=== PATIENT | female | born 1960 | race Caucasian/White ===

== ENCOUNTER 2018-09-05 10:41 | Emergency (ER) | payer BC, SELFPAY ==
[2018-09-05] VITALS (19 sets, daily range): BP systolic 96–129; BP diastolic 70–74; PULSE 72–91; RESP 11–20; TEMP 36.8; O2SAT 94–98
--- NOTE | 2018-09-05 11:08 | DI.CT_ITS ---
SYMPTOMS/DIAGNOSIS: LARGE LEFT TONSILLAR MASS, NONTENDER, FIRM CT OF THE NECK: Postcontrast exam was performed. Comparison is made with May,. There is a rounded mass in the left palatine tonsil, measuring roughly 3 cm in diameter. There is slight deviation of the airway toward the right. There are two adjacent lymph nodes, the larger showing necrosis, measuring 2 cm in diameter. A 1 cm node is seen inferior to the larger node. The parotid, submandibular and thyroid glands are unremarkable. Visualized portions of the lung apices appear clear. IMPRESSION: A 3 cm left tonsillar mass and adjacent enlarged lymph nodes with necrotic center.
[2018-09-05 11:31] LABS: Abs Immature Grans 0.01 k/cumm (0.0-0.09); Absolute Basophil Count 0.04 k/cumm (0.0-0.2); Absolute Lymphocyte Count 1.78 k/cumm (1.2-3.4); Absolute Monocyte Count 0.36 k/cumm (0.11-0.7); Absolute Neutrophil Count 3.95 k/cumm (1.2-6.7); Basophils % 0.6; Eosinophils % 6.1; HCT 42.1 % (36.0-46.0); HGB 13.8 g/dL (12.0-15.5); Immature Grans % 0.2; Lymphocytes % 27.2; Mean Corp. HGB Concentration 32.8 g/dL (32.0-36.0); Mean Corpuscular Hemoglobin 29.7 pg (27.0-33.0); Mean Corpuscular Volume 90.7 fL (80-95); Mean Platelet Volume 9.9 fL (8.0-11.0); Monocytes % 5.5; Neutrophils % 60.4; Platelet Count 244 x1000/uL (130-400); RBC 4.64 m/cumm (4.00-5.20); White Blood Cell Count 6.54 k/cumm (4.4-10.8)
--- NOTE | 2018-09-05 11:31 | ED.GENADUL_ITS ---
Discharge Plan Disposition Patient Disposition: OTHER Condition: Good Discharge Details Chief Complaint: FacialProb Clinical Impression: Asymmetry of tonsils Primary Care Provider: Josue Vela ED Provider: Jt Huang Home Meds and New Rx's Prescriptions: No Action methylphenidate HCl 10 MG tablet 10 mg PO TID PRNRF: 0 Discharge Instructions Instructions: Dysphagia (ED) Additional Instructions: Please drive directly to [facility] and go to the clinic of Dr. Keita and Dr. Collazo. You have discussed with us that you are familiar with this location. Do not stop, do not get food, go directly there. Discharge Data Discharge Date/Time-TO BE ENTERED AT DEPARTURE: 09/05/18 14:29 Medical Decision Making This is a 58-year-old female who presents with a large left mass in her left peritonsillar region. Patient states that it started either last night or this morning. She is uncertain. She has had no red flag symptoms of fever, chills, sore throat, or neck stiffness. The fact on exam she demonstrates no significant tenderness whatsoever. Minimal uvular deviation to the right. She is able to swallow and drink well without difficulty. No signs of airway compromise. The patient's symptoms are certainly atypical with no pain, fever, neck stiffness, tenderness, fever or chills. Because of the atypical component and concern for other causes on her differential aside for peritonsillar abscess including a blocked salivary duct with a sialolith, versus mass versus aneurysm. We will get a CT for further evaluation. CT scan results have returned and demonstrate evidence of a 3 cm tonsillar mass as well as an adjacent enlarged lymph node with a necrotic center that is roughly 2 cm in diameter. With no evidence of clear tonsillar abscess as the cause of the symptoms, the differential that now includes cancer or malignancy, we did contact ENT, Dr. Collazo. I discussed the case with him. He recommends immediate follow-up at his clinic today. On reassessment the patient is still demonstrating a clear airway, no signs of significant airway obstruction, no severe difficulty swallowing. She appears hemodynamically stable. The patient is aware of the location of [facility] as well as Dr. Collazo's office. The patient will be transferred with a friend by private vehicle which is the patient's request immediately to Dr. Collazo's office for further evaluation. We discussed the importance of direct travel with not stopping or waiting at any locations. The patient understands this. I have extensively reviewed the treatment plan and discharge instructions with the patient and their family. I have addressed all patient concerns at this time. The patient and family was made aware of what symptoms to monitor for that would warrant a return to the emergency department. Discussed the plan with the patient and family, they demonstrate verbal understanding and agreement with our assessment and plan at this time. SYMPTOMS/DIAGNOSIS: LARGE LEFT TONSILLAR MASS, NONTENDER, FIRM CT OF THE NECK: Postcontrast exam was performed. Comparison is made with May,. There is a rounded mass in the left palatine tonsil, measuring roughly 3 cm in diameter. There is slight deviation of the airway toward the right. There are two adjacent lymph nodes, the larger showing necrosis, measuring 2 cm in diameter. A 1 cm node is seen inferior to the larger node. The parotid, submandibular and thyroid glands are unremarkable. Visualized portions of the lung apices appear clear. IMPRESSION: A 3 cm left tonsillar mass and adjacent enlarged lymph nodes with necrotic center. HPI General Date/Time Provider Initiated Documentation: 09/05/18 11:07 . HPI Narrative: This is a 58-year-old female with no past medical history who presents today for evaluation of lump in her throat. The patient states that starting last night she noticed a notable mass in the left side of her posterior oropharynx. She has no associated pain, fever, chills, neck pain or neck stiffness, pain with swallowing, nausea, vomiting, or diarrhea. She denies any history of recent strep, or any other complaint. She is very asymptomatic otherwise. She came in today because of the fast onset and the concerning visual exam on her own evaluation. She denies any other complaints at this time. She denies any recent surgeries. She denies any IV or illicit drug use. No other complaints at this time. No modifying factors. Related Data Home Medications Medication Instructions Recorded Confirmed methylphenidate HCl 10 mg PO TID PRN 05/14/14 09/05/18 Allergies Allergy/AdvReac Type Severity Reaction Status Date / Time No Known Allergies Allergy Unverified 09/05/18 11:01 General Stated Complaint: FacialProb AMANDA: 3 Review of Systems Review of Systems All systems reviewed & are unremarkable except as noted in HPI and below PFSH Social History Smoking/Tobacco Use Status: Never Exam Narrative Exam Narrative: 1.Const: Well-nourished, Well-developed, appearing stated age 2.Eyes: PERRL, no conjunctival injection, and symmetrical lids. 3.ENT: Atraumatic external nose and ears. Moist MM. Neck: Symmetric, trachea midline, No thyromegaly. Patient does demonstrate a notable enlarged mass over the left peritonsillar region. Minimal erythema. Uvula is slightly deviated to the right. No tonsillar exudates. Palpation reveals a firm mass, no fluctuance that I can appreciate. No tenderness on palpation. No trismus. Patient demonstrates good movement of cervical neck. There is no nuchal rigidity, no nuchal tenderness. Patient is able to flex the neck without any difficulty or significant pain. Negative Kernig's and Brudzinski sign. No significant cervical lymphadenopathy. 4.CVS: +S1/S2, No murmurs or gallops. Peripheral pulses 2+ and equal in all extremities. Brisk capillary refill in all extremities. 5.RESP: Unlabored respiratory effort. Clear to auscultation bilaterally. No wheezes rales or rhonchi 6.GI: Soft, Nontender/Nondistended, No hepatosplenomegaly. No guarding or rebound. 7.MSK: Normocephalic/Atraumatic, Extremities w/o deformity or ttp No cyanosis or clubbing, Normal movement of all extremities 8.Skin: Warm, Dry. No rashes or lesions. 9.Neuro: horse shoer II-XII grossly intact. Sensation grossly intact, no focal neurologic deficits. 10.Psych: (AAO) x3. Appropriate mood and affect Course Vital Signs Temperature 36.8 C 09/05/18 10:59 Pulse 91 H 09/05/18 10:59 Respiratory Rate 20 09/05/18 10:59 Blood Pressure 128/74 09/05/18 10:59 Pulse Oximetry 98 09/05/18 10:59 Temperature 36.8 C 09/05/18 10:59 Temperature Source Temporal Artery Scan 09/05/18 10:59 Pulse 91 H 09/05/18 10:59 Respiratory Rate 20 09/05/18 10:59 Respiratory Effort Non-Labored 09/05/18 10:59 Blood Pressure 128/74 09/05/18 10:59 Blood Pressure Position Sitting 09/05/18 10:59 Pulse Oximetry 98 09/05/18 10:59 Oxygen Delivery Method Room Air 09/05/18 10:59 Oxygen Flow Rate 0 09/05/18 10:59 Pain Level 0 09/05/18 10:59
[2018-09-05 11:48] LABS: ALT 34 U/L (12-78); AST 21 U/L (15-37); Albumin 4.2 g/dL (3.4-5.0); Alkaline Phosphatase 121 U/L (46-116); Anion Gap 10.2 mmol/L (3-11); BUN 15 mg/dL (7-18); Bilirubin, Total 0.3 mg/dL (0.2-1.0); CO2 27.8 mmol/L (21.0-32.0); CREATININE 0.96 mg/dL (0.55-1.02); Calcium 9.3 mg/dL (8.5-10.1); Chloride 103 mmol/L (98-107); Glucose 98 mg/dL (70-100); Potassium 4.1 mmol/L (3.5-5.1); Sodium 141 mmol/L (136-145); Total Protein 8.4 g/dL (6.4-8.2)
--- NOTE | 2018-09-05 12:11 | NUR.NOTE ---
Assumed care of patient, is in no acute distress. Awaiting CT and dispo. Call hurst in reach, will monitor.
[2018-09-05] MEDS: Omnipaque 350 MG/ML 100 ML BTL IJ (13:24)
--- NOTE | 2018-09-05 14:12 | NUR.NOTE ---
Pt. is in no distress, awaiting ENT consult.
--- NOTE | 2018-09-05 14:20 | NUR.NOTE ---
MD Huang is speaking with ENT currently, aware that pt. feels swelling is worsening. Pt. continues to be in no distress at all, she is speaking clearly, maintaining secretions, skin is pink, warm and dry.
--- NOTE | 2018-09-05 14:26 | NUR.NOTE ---
MD Huang updates patient on plan to drive directly to ENT clinic in [place], pt. is appropriate and comfortable with this plan.
== END 2018-09-05 14:29 | disposition other institution (70) ==
PROVIDERS: Emergency Provider Student in an Organized Health Care Education/Training Program; PCP Emergency Medicine
DX: R22.1 Localized swelling, mass and lump, neck (principal)
CPT/HCPCS: 70491; 80053; 99285; 85025; 99283; J3490

== ENCOUNTER 2018-11-28 01:32 | Outpatient (RCR) | payer BC, SELFPAY ==
[2018-11-28] MEDS: Heparin 500 UNITS/5 ML SYRINGE IV (10:00)
[2018-11-28] MEDS: Normal Saline Flush 10 ML SYR IVP (10:00)
[2018-11-28 10:43] LABS: Abs Immature Grans 0.01 k/cumm (0.0-0.09); Absolute Basophil Count 0.02 k/cumm (0.0-0.2); Absolute Eosinophil Count 0.36 k/cumm (0.0-0.7); Absolute Monocyte Count 0.38 k/cumm (0.11-0.7); Absolute Neutrophil Count 3.19 k/cumm (1.2-6.7); Basophils % 0.4; Eosinophils % 6.4; HCT 37.8 % (36.0-46.0); HGB 12.5 g/dL (12.0-15.5); Immature Grans % 0.2; Mean Corp. HGB Concentration 33.1 g/dL (32.0-36.0); Mean Corpuscular Hemoglobin 29.7 pg (27.0-33.0); Mean Corpuscular Volume 89.8 fL (80-95); Mean Platelet Volume 10.2 fL (8.0-11.0); Monocytes % 6.7; Neutrophils % 56.3; Platelet Count 225 x1000/uL (130-400); RBC 4.21 m/cumm (4.00-5.20); RBC Distribution Width 13.1 % (11.7-14.6); White Blood Cell Count 5.66 k/cumm (4.4-10.8)
[2018-11-28 10:54] LABS: ALT 27 U/L (12-78); AST 17 U/L (15-37); Albumin 3.6 g/dL (3.4-5.0); Alkaline Phosphatase 102 U/L (46-116); Anion Gap 11.8 mmol/L (3-11); BUN 15 mg/dL (7-18); Bilirubin, Total 0.5 mg/dL (0.2-1.0); CO2 25.2 mmol/L (21.0-32.0); CREATININE 0.94 mg/dL (0.55-1.02); Calcium 9.4 mg/dL (8.5-10.1); Chloride 102 mmol/L (98-107); Glucose 97 mg/dL (70-100); Magnesium 1.8 mg/dL (1.8-2.4); Sodium 139 mmol/L (136-145)
== END 2018-12-04 23:59 | disposition home or self-care (01) ==
LOC: INF 01:32
PROVIDERS: PCP Emergency Medicine; Visit Provider Nurse Practitioner Adult Health
DX: C09.9 Malignant neoplasm of tonsil, unspecified (principal); Z45.2 Encounter for adjustment and management of vascular access device
CPT/HCPCS: 36591; 80053; 83735; 85025

== ENCOUNTER 2018-11-29 02:10 | Outpatient (CLI) | payer BC, SELFPAY | END 2018-11-29 02:30 | PROVIDERS: PCP Emergency Medicine | DX: R13.12 Dysphagia, oropharyngeal phase (principal); R13.14 Dysphagia, pharyngoesophageal phase | CPT/HCPCS: 92610 ==

== ENCOUNTER 2018-12-06 02:11 | Outpatient (RCR) | payer BC, SELFPAY | END 2019-01-03 23:59 | disposition home or self-care (01) | LOC: SP 02:11 | PROVIDERS: PCP Emergency Medicine | DX: C09.9 Malignant neoplasm of tonsil, unspecified (principal); Z93.1 Gastrostomy status | CPT/HCPCS: 92507 ==

== ENCOUNTER 2018-12-24 16:35 | Observation (INO) | payer BC, SELFPAY ==
[2018-12-24 16:46] VITALS: BP 106/83; PULSE 80; RESP 16; TEMP 36.5; O2SAT 95
[2018-12-24] MEDS: Lactated Ringers 1,000 ML 1000 ML IV ×2 (17:15→20:02)
[2018-12-24] MEDS: Metoclopramide 10 MG/2 ML VIAL IVP (17:17)
[2018-12-24 17:33] LABS: Abs Immature Grans 0.01 k/cumm (0.0-0.09); Absolute Basophil Count 0.01 k/cumm (0.0-0.2); Absolute Eosinophil Count 0.01 k/cumm (0.0-0.7); Absolute Lymphocyte Count 0.55 k/cumm (1.2-3.4); Absolute Monocyte Count 0.33 k/cumm (0.11-0.7); Absolute Neutrophil Count 3.45 k/cumm (1.2-6.7); Basophils % 0.2; Eosinophils % 0.2; Immature Grans % 0.2; Lymphocytes % 12.6; Mean Corp. HGB Concentration 33.3 g/dL (32.0-36.0); Mean Corpuscular Hemoglobin 29.7 pg (27.0-33.0); Mean Corpuscular Volume 89.2 fL (80-95); Mean Platelet Volume 9.2 fL (8.0-11.0); Monocytes % 7.6; Neutrophils % 79.2; Platelet Count 154 x1000/uL (130-400); RBC Distribution Width 13.4 % (11.7-14.6); White Blood Cell Count 4.36 k/cumm (4.4-10.8)
[2018-12-24 17:47] LABS: ALT 69 U/L (12-78); AST 24 U/L (15-37); Albumin 3.6 g/dL (3.4-5.0); Alkaline Phosphatase 94 U/L (46-116); Anion Gap 11.2 mmol/L (3-11); BUN 33 mg/dL (7-18); Bilirubin, Total 0.5 mg/dL (0.2-1.0); CO2 25.8 mmol/L (21.0-32.0); Calcium 8.9 mg/dL (8.5-10.1); Chloride 103 mmol/L (98-107); Estimated GFR 42.37 (mL/min/1.73m2); Glucose 111 mg/dL (70-100); Lipase 170 U/L (73-393); Magnesium 1.9 mg/dL (1.8-2.4); Potassium 3.3 mmol/L (3.5-5.1); Sodium 140 mmol/L (136-145); Total Protein 7.5 g/dL (6.4-8.2)
--- NOTE | 2018-12-24 17:48 | W.ED.GENAD ---
Discharge Plan Disposition Patient Disposition: [facility] INPATIENT Condition: Serious Discharge Details Chief Complaint: Nausea/Vomit/Diar Clinical Impression: Nausea and vomiting, Hypokalemia Admit Date/Time: 12/24/18 19:58 Admit Provider: Brendan Sutton Attending Provider: Brendan Sutton Primary Care Provider: Josue Vela ED Provider: Carroll Ramires Discharge Data Discharge Date/Time-TO BE ENTERED AT DEPARTURE: 12/24/18 21:01 Medical Decision Making 17:52 --58-year-old female with history of tonsil cancer, currently receiving radiation and chemotherapy, here 4 days after receiving chemo treatment with severe nausea and vomiting. Patient is hypovolemic. Plan to give IV fluid bolus. Reglan 10 mg IV administered. Suspect chemo related nausea. Plan to check labs for electrolyte abnormalities. -- Labs reviewed and hypokalemia noted. Will give potassium IV and additional IVF. 19:50 -- Patient reassessed: Still with nausea. Not able to tolerate PO intake. Plan to hospitalize. Spoke with Dr. Sutton who will admit the patient. Care transition to Dr. Sutton. HPI General Mode of arrival: ambulatory. Date/Time Provider Initiated Documentation: 12/24/18 17:03. Limitations to Documentation: no limitations. Information obtained by: patient. HPI Narrative: 58-year-old female with history of asthma, tonsillar cancer, currently being treated with radiation and had second round of chemotherapy 4 days ago, here with chief complaint of severe nausea. Patient notes she has had nausea and vomiting for the past 4 days. Symptoms are severe. Symptoms refractory to treatment with Phenergan suppository. Zofran not helping. She has some associated upper abdominal burning discomfort that she thinks is secondary to the excessive vomiting. Family has been hydrating her with Gatorade through G-tube but concerned that she has vomited this up as well. She denies pain at this time. No fever. Related Data Home Medications Medication Instructions Recorded Confirmed methylphenidate HCl 10 mg PO TID PRN 05/14/14 12/24/18 famotidine [Pepcid] 20 mg PO HS 12/24/18 12/24/18 lorazepam 0.5 mg PO PRN 12/24/18 omeprazole magnesium [Prilosec OTC] 20 mg PO DAILY 12/24/18 12/24/18 promethazine [Phenergan] 50 mg [place] Q6H PRN 12/24/18 12/24/18 Allergies Allergy/AdvReac Type Severity Reaction Status Date / Time Penicillins Allergy Unknown Unverified 12/24/18 16:52 General Stated Complaint: Nausea/Vomit/Diar AMANDA: 3 Review of Systems Constitutional Denies fever(s) Gastrointestinal Reports nausea and Reports vomiting PFSH Medical History Idiopathic hypersomnolence (Acute) Tonsil cancer (Acute) GERD (gastroesophageal reflux disease) (Chronic) Surgical History S/P cholecystectomy (Resolved) S/P tonsillectomy (Resolved) Social History Smoking/Tobacco Use Status: Never Alcohol Intake: never Drug use: Never Do you feel safe at home: Yes Do you feel safe in your relationship?: Yes Exam Const General: cooperative and no acute distress HENMT Head: normocephalic Mouth: mucous membranes dry Eyes Conjunctivae: normal conjunctivae Sclera: normal sclerae Resp Auscultation: clear to auscultation bilaterally, no rales, no rhonchi and no wheezes Cardio Rate: regular rate and not tachycardic Rhythm: regular rhythm GI Palpation: soft, not firm, no guarding, no masses, not rigid and nontender Skin General skin exam: turgor decreased Neuro General: alert and awake Extrem General: no edema Course Vital Signs Temperature 36.5 C 12/24/18 16:46 Pulse 80 12/24/18 16:46 Respiratory Rate 16 12/24/18 16:46 Blood Pressure 106/83 12/24/18 16:46 Pulse Oximetry 16 L 12/24/18 16:46 Temperature 36.5 C 12/24/18 16:46 Temperature Source Tympanic 12/24/18 16:46 Pulse 80 12/24/18 16:46 Respiratory Rate 16 12/24/18 16:46 Respiratory Effort 12/24/18 16:51 Blood Pressure 106/83 12/24/18 16:46 Pulse Oximetry 16 L 12/24/18 16:46 Oxygen Delivery Method Room Air 12/24/18 16:46 Oxygen Flow Rate 0 12/24/18 16:46 Pain Level 4 12/24/18 16:46 Lab/Test Results Lab/Test Results: Laboratory Tests Range/Units 12/24/18 17:15 WBC (4.4-10.8) k/cumm 4.36 L RBC (4.00-5.20) m/cumm 3.70 L Hgb (12.0-15.5) g/dL 11.0 L Hct (36.0-46.0) % 33.0 L MCV (80-95) fL 89.2 MCH (27.0-33.0) pg 29.7 MCHC (32.0-36.0) g/dL 33.3 RDW (11.7-14.6) % 13.4 Plt Count (130-400) x1000/uL 154 MPV (8.0-11.0) fL 9.2 Immature Gran % 0.2 Neutrophils % 79.2 Lymphocytes % 12.6 Monocytes % 7.6 Eosinophils % 0.2 Basophils % 0.2 Absolute Neutrophils (1.2-6.7) k/cumm 3.45 Absolute Lymphocytes (1.2-3.4) k/cumm 0.55 L Absolute Monocytes (0.11-0.7) k/cumm 0.33 Absolute Eosinophils (0.0-0.7) k/cumm 0.01 Absolute Basophils (0.0-0.2) k/cumm 0.01
--- NOTE | 2018-12-24 17:54 | ED.GENADUL_ITS ---
Discharge Plan Disposition Patient Disposition: [facility] INPATIENT Condition: Serious Discharge Details Chief Complaint: Nausea/Vomit/Diar Clinical Impression: Nausea and vomiting, Hypokalemia Admit Date/Time: 12/24/18 19:58 Admit Provider: Brendan Sutton Attending Provider: Brendan Sutton Primary Care Provider: Josue Vela ED Provider: Carroll Ramires Discharge Data Discharge Date/Time-TO BE ENTERED AT DEPARTURE: 12/24/18 21:01 Medical Decision Making 17:52 --58-year-old female with history of tonsil cancer, currently receiving radiation and chemotherapy, here 4 days after receiving chemo treatment with severe nausea and vomiting. Patient is hypovolemic. Plan to give IV fluid bolus. Reglan 10 mg IV administered. Suspect chemo related nausea. Plan to check labs for electrolyte abnormalities. -- Labs reviewed and hypokalemia noted. Will give potassium IV and additional IVF. 19:50 -- Patient reassessed: Still with nausea. Not able to tolerate PO intake. Plan to hospitalize. Spoke with Dr. Sutton who will admit the patient. Care transition to Dr. Sutton. HPI General Mode of arrival: ambulatory . Date/Time Provider Initiated Documentation: 12/24/18 17:03 . Limitations to Documentation: no limitations . Information obtained by: patient . HPI Narrative: 58-year-old female with history of asthma, tonsillar cancer, currently being treated with radiation and had second round of chemotherapy 4 days ago, here with chief complaint of severe nausea. Patient notes she has had nausea and vomiting for the past 4 days. Symptoms are severe. Symptoms refractory to treatment with Phenergan suppository. Zofran not helping. She has some associated upper abdominal burning discomfort that she thinks is secondary to the excessive vomiting. Family has been hydrating her with Gatorade through G-tube but concerned that she has vomited this up as well. She denies pain at this time. No fever. Related Data Home Medications Medication Instructions Recorded Confirmed methylphenidate HCl 10 mg PO TID PRN 05/14/14 12/24/18 famotidine [Pepcid] 20 mg PO HS 12/24/18 12/24/18 lorazepam 0.5 mg PO PRN 12/24/18 omeprazole magnesium [Prilosec OTC] 20 mg PO DAILY 12/24/18 12/24/18 promethazine [Phenergan] 50 mg [place] Q6H PRN 12/24/18 12/24/18 Allergies Allergy/AdvReac Type Severity Reaction Status Date / Time Penicillins Allergy Unknown Unverified 12/24/18 16:52 General Stated Complaint: Nausea/Vomit/Diar AMANDA: 3 Review of Systems Constitutional Denies fever(s) Gastrointestinal Reports nausea and Reports vomiting PFSH Medical History Idiopathic hypersomnolence (Acute) Tonsil cancer (Acute) GERD (gastroesophageal reflux disease) (Chronic) Surgical History S/P cholecystectomy (Resolved) S/P tonsillectomy (Resolved) Social History Smoking/Tobacco Use Status: Never Alcohol Intake: never Drug use: Never Do you feel safe at home: Yes Do you feel safe in your relationship?: Yes Exam Const General: cooperative and no acute distress HENMT Head: normocephalic Mouth: mucous membranes dry Eyes Conjunctivae: normal conjunctivae Sclera: normal sclerae Resp Auscultation: clear to auscultation bilaterally, no rales, no rhonchi and no wheezes Cardio Rate: regular rate and not tachycardic Rhythm: regular rhythm GI Palpation: soft, not firm, no guarding, no masses, not rigid and nontender Skin General skin exam: turgor decreased Neuro General: alert and awake Extrem General: no edema Course Vital Signs Temperature 36.5 C 12/24/18 16:46 Pulse 80 12/24/18 16:46 Respiratory Rate 16 12/24/18 16:46 Blood Pressure 106/83 12/24/18 16:46 Pulse Oximetry 16 L 12/24/18 16:46 Temperature 36.5 C 12/24/18 16:46 Temperature Source Tympanic 12/24/18 16:46 Pulse 80 12/24/18 16:46 Respiratory Rate 16 12/24/18 16:46 Respiratory Effort 12/24/18 16:51 Blood Pressure 106/83 12/24/18 16:46 Pulse Oximetry 16 L 12/24/18 16:46 Oxygen Delivery Method Room Air 12/24/18 16:46 Oxygen Flow Rate 0 12/24/18 16:46 Pain Level 4 12/24/18 16:46 Lab/Test Results Lab/Test Results: Laboratory Tests Range/Units 12/24/18 17:15 WBC (4.4-10.8) k/cumm 4.36 L RBC (4.00-5.20) m/cumm 3.70 L Hgb (12.0-15.5) g/dL 11.0 L Hct (36.0-46.0) % 33.0 L MCV (80-95) fL 89.2 MCH (27.0-33.0) pg 29.7 MCHC (32.0-36.0) g/dL 33.3 RDW (11.7-14.6) % 13.4 Plt Count (130-400) x1000/uL 154 MPV (8.0-11.0) fL 9.2 Immature Gran % 0.2 Neutrophils % 79.2 Lymphocytes % 12.6 Monocytes % 7.6 Eosinophils % 0.2 Basophils % 0.2 Absolute Neutrophils (1.2-6.7) k/cumm 3.45 Absolute Lymphocytes (1.2-3.4) k/cumm 0.55 L Absolute Monocytes (0.11-0.7) k/cumm 0.33 Absolute Eosinophils (0.0-0.7) k/cumm 0.01 Absolute Basophils (0.0-0.2) k/cumm 0.01
[2018-12-24] MEDS: Normal Saline 1,000 ML 1000 ML IV (18:29)
[2018-12-24] MEDS: POTASSIUM CHLORIDE 20 MEQ/100 ML BAG 50 MEQ IVPB (20:03)
--- NOTE | 2018-12-24 20:16 | HPE_ITS ---
Date of service: 12/24/18 Time of Service: 20:14 Assessment and Plan (1) Dehydration, moderate: Start date: 12/24/18 Current visit: Yes Status: Acute This is a 58-year-old lady who is having intractable nausea and vomiting at home with mild to moderate dehydration and persistent nausea requiring IV therapy. She will be observed overnight with IV hydration and follow-up lab in the morning. She did require potassium supplementation IV for magnesium level was normal. She will be placed on intravenous Protonix for her GERD. If she does well she will return home in the morning for continued outpatient therapy. She does have antiemetics at home. (2) Nausea & vomiting: Start date: 12/23/18 Current visit: Yes Status: Acute This is post chemotherapy hyperemesis and will be treated with IV fluids for bowel rest, IV PPI and IV Zofran and and oral Compazine as needed. Patient will be on observation with plans to discharge within the next 24-48 hours. 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 Patient reported to the emergency room for evaluation and was treated symptomatically with Reglan having failed Phenergan suppositories and Zofran orally at home. She does have a G-tube which was placed after her surgery and November and even with Gatorade being given through the G-tube she was vomiting up everything in her stomach. In the emergency room she was seen to be dehydrated with a slight bump in her creatinine and she responded to IV fluid resuscitation with IV Reglan given once and then repeat IV Zofran. She was hypokalemic and did be seeing some IV potassium in the ED. Labs with follow-up in the morning. She does have a past history of asthma and is not actively on inhalers and does take medicines for GERD since placement of her G-tube and she is treated for idiopathic hypersomnolence with methylphenidate. She has lost about 20 pounds since she was diagnosed with cancer and she is having issues with maintaining nutrition with her therapies. Her only other past surgical history was a cholecystectomy. Review of Systems Review of Systems 13 point review of systems otherwise unrevealing or stable All systems reviewed & are unremarkable except as noted in HPI and below Constitutional Reports as per HPI [facility] Medical History Idiopathic hypersomnolence (Acute) Tonsil cancer (Acute) GERD (gastroesophageal reflux disease) (Chronic) Surgical History S/P cholecystectomy (Resolved) S/P tonsillectomy (Resolved) Social History Smoking/Tobacco Use Status: Never Alcohol Intake: never Drug use: Never Do you feel safe at home: Yes Do you feel safe in your relationship?: Yes Meds Home Medications Medication Instructions Recorded Confirmed Type methylphenidate HCl 10 mg PO TID PRN 05/14/14 12/24/18 History famotidine [Pepcid] 20 mg PO HS 12/24/18 12/24/18 History lorazepam 0.5 mg PO PRN 12/24/18 History omeprazole magnesium [Prilosec OTC] 20 mg PO DAILY 12/24/18 12/24/18 History promethazine [Phenergan] 50 mg [place] Q6H PRN 12/24/18 12/24/18 History Allergies Allergy/AdvReac Type Severity Reaction Status Date / Time Penicillins Allergy Unknown Unverified 12/24/18 16:52 Exam Narrative Exam Narrative: General: Patient is moderately obese, flattened affect but good eye contact, in moderate distress from her nausea but alert and oriented x3. HEENT: Normocephalic, eyes normal with pupils equal and reactive to light symmetrically with extraocular movement intact and sclera anicteric, ears normal, nose normal, oropharynx with slightly dry oral mucosa and fair dent ition. Pharynx was on exam with the patient asleep having to be awakened at the time I saw her and uncomfortable to where I did a minimal examination of her oropharynx. This is being followed by oncology. Neck: Supple without JVD patient nontender to palpation on the left side of her neck. She had previous swelling and tenderness of the left side. Lungs: Clear to auscultation percussion with fair aeration. No expiratory wheeze. No focal rales or rhonchi. Heart: Regular rate and rhythm with no murmurs gallops appreciated. Breast: Not examined. Abdomen: Obese contour, soft and nontender to palpation with bowel sounds positive. Gastrostomy tube is in place. Genitalia and rectal exam: Not examined. Extremities: No pitting edema, cyanosis or clubbing. All joints. Have fair range of motion. Skin: Pale, warm and dry. Neuro: No focalizing motor deficits. Cranial nerves II through XII grossly intact. Results Labs : 12/24/18 17:15 12/24/18 17:15 Laboratory Results - last 24 hr 12/24/18 12/24/18 17:15 17:15 WBC 4.36 L RBC 3.70 L Hgb 11.0 L Hct 33.0 L MCV 89.2 MCH 29.7 MCHC 33.3 RDW 13.4 Plt Count 154 MPV 9.2 Immature Gran % 0.2 Neutrophils % 79.2 Lymphocytes % 12.6 Monocytes % 7.6 Eosinophils % 0.2 Basophils % 0.2 Absolute Neutrophils 3.45 Absolute Lymphocytes 0.55 L Absolute Monocytes 0.33 Absolute Eosinophils 0.01 Absolute Basophils 0.01 Sodium 140 Potassium 3.3 L Chloride 103 Carbon Dioxide 25.8 Anion Gap 11.2 H BUN 33 H Creatinine 1.30 H Estimated GFR/1.73 m2 42.37 Glucose 111 H Calcium 8.9 Magnesium 1.9 Total Bilirubin 0.5 AST 24 ALT 69 Alkaline Phosphatase 94 Total Protein 7.5 Albumin 3.6 Lipase 170 Last Vital Signs Temp 36.5 C 12/24/18 16:46 Pulse 80 12/24/18 16:46 Resp 16 12/24/18 16:46 BP 106/83 12/24/18 16:46 Pulse Ox 16 L 12/24/18 16:46
[2018-12-24] MEDS: Ondansetron 4 MG/2 ML VIAL IVP (20:37)
[2018-12-24 20:55] VITALS: PULSE 72; TEMP 36.5; O2SAT 95
[2018-12-24 21:16] VITALS: BP 118/77; PULSE 58; RESP 17; TEMP 36.9; O2SAT 98
[2018-12-24 21:25] VITALS: PULSE 66
[2018-12-24] MEDS: Heparin 5,000 UNITS/ML VIAL 5000 UNITS SC (21:57)
[2018-12-24] MEDS: SODIUM CHLORIDE 0.45% 1,000 ML 150 ML IV (23:10)
[2018-12-24 23:14] VITALS: BP 116/78; PULSE 66; RESP 17; TEMP 37; O2SAT 96
[2018-12-25] VITALS (9 sets, daily range): BP systolic 116–125; BP diastolic 64–82; PULSE 56–72; RESP 17–19; TEMP 36.2–37.4; O2SAT 95–98
[2018-12-25] MEDS: Normal Saline 1,000 ML 150 ML IV ×2 (01:02→07:00)
[2018-12-25] MEDS: Prochlorperazine 10 MG/2 ML VIAL 5 MG IVP ×5 (01:31→21:25)
[2018-12-25] MEDS: Heparin 5,000 UNITS/ML VIAL 5000 UNITS SC ×3 (06:28→21:25)
[2018-12-25] MEDS: Ondansetron 4 MG/2 ML VIAL IVP ×3 (06:31→18:23)
[2018-12-25] MEDS: Pantoprazole 40 MG VIAL IVP (07:46)
[2018-12-25 07:47] LABS: HCT 28.4 % (36.0-46.0); HGB 9.4 g/dL (12.0-15.5); Mean Corp. HGB Concentration 33.1 g/dL (32.0-36.0); Mean Corpuscular Volume 90.7 fL (80-95); Mean Platelet Volume 9.6 fL (8.0-11.0); Platelet Count 140 x1000/uL (130-400); RBC 3.13 m/cumm (4.00-5.20); RBC Distribution Width 13.4 % (11.7-14.6); White Blood Cell Count 2.62 k/cumm (4.4-10.8)
[2018-12-25] MEDS: Normal Saline Flush 10 ML SYR IVP ×6 (07:49→21:26)
[2018-12-25 07:59] LABS: ALT 55 U/L (12-78); AST 21 U/L (15-37); Albumin 2.8 g/dL (3.4-5.0); Alkaline Phosphatase 80 U/L (46-116); Anion Gap 8.7 mmol/L (3-11); BUN 30 mg/dL (7-18); Bilirubin, Total 0.3 mg/dL (0.2-1.0); CO2 27.3 mmol/L (21.0-32.0); CREATININE 1.21 mg/dL (0.55-1.02); Chloride 108 mmol/L (98-107); Estimated GFR 46.03 (mL/min/1.73m2); Glucose 95 mg/dL (70-100); Sodium 144 mmol/L (136-145); Total Protein 6.2 g/dL (6.4-8.2)
[2018-12-25] MEDS: POTASSIUM CHLORIDE/0.9% NACL 1,000 ML 125 MEQ IV ×2 (10:48→21:25)
[2018-12-25] MEDS: POTASSIUM CHLORIDE 10 MEQ/100 ML BAG 100 MEQ IVPB ×4 (11:25→14:32)
--- NOTE | 2018-12-25 13:41 | W.PM.PROGNOT ---
Date of Service Date of service: 12/25/18 Time of Service: 14:19 Assessment and Plan (1) Dehydration, moderate: Start date: 12/25/18 Start time: 13:43 Current visit: No Status: Acute Dehydration appears better by labs. Pt does still look dry in mucus membranes. She is c/o diarrhea as well. Stool sample to r/o cdiff. If negative consider imodium as this could be a side effect of chemo. Continue hydration over night. Reevaluate in am possible discharge home in the morning. N/V seems to be controlled. Still feeling slightly nauseated, no vomiting since admission. Compazine and zofran for nausea. (2) Hypokalemia: Start date: 12/25/18 Start time: 14:15 Current visit: Yes Status: Acute potassium level is 3.0 despite receiving k runs yesterday. Replete with 2 runs of 20 meq potassium and IVF of NS with 20 K at 125 an hour. Check am labs and monitor. (3) Nausea & vomiting: Start date: 12/25/18 Start time: 14:16 Current visit: No Status: Acute as above with IV PPI and IV Zofran and and oral Compazine as needed. Feeling better. Less nauseated. (4) Tonsil cancer: Start date: 12/25/18 Start time: 14:17 Current visit: Yes Status: Acute Currently receiving chemo for tonsil cancer. PEG tube in place, nothing by mouth. (5) DVT prophylaxis: Start date: 12/25/18 Start time: 14:19 Current visit: Yes Status: Acute Heparin Subcu (6) GERD (gastroesophageal reflux disease): Start date: 12/25/18 Start time: 14:19 Current visit: Yes Status: Chronic IV PPI Subjective Patient reports: feels better Interval history since last seen: Mrs. Bermeo, is feeling better. She has not vomited since admission. She is still nauseated continue IV zofran and compezine for nausea. Her labs appear to be improving for hydration but she does appear to have dry mucus membranes with 3-4 episode of diarrhea. Continue hydration for another 24 hours. Stool sample to r/o cdiff. If negative consider imodium could be due to chemo. She is receiving ensure through her PEG tube. Her potassium level dropped this am despite having runs yesterday, from 3.3 to 3.0. 2 20 meq runs ordered with NS 20 k @ 150. She denies CP, SOB, vomiting. Consider discharge tomorrow if she is feeling better. Exam Const General: cooperative, healthy appearing, comfortable and no acute distress HENMT Throat: abnormal tonsil Neck Neck: normal visual inspection and full ROM Lymphatic: lymphadenopathy Chest Chest: normal inspection of the chest Resp Effort & Inspection: normal respiratory effort and able to speak in complete sentences Cardio Jugular venous pressure: no JVD Palpation: normal PMI Rate: regular rate Rhythm: regular rhythm Heart Sounds: S1 normal and S2 normal GI Palpation: soft and no hepatosplenomegaly Auscultation: hypoactive bowel sounds Other: PEG tube in place Back/Spine/Pelvis Back: no CVA tenderness Skin General skin exam: no rashes or lesions noted Neuro General: alert, awake and oriented x3 Objective Objective Clinical Data: Abnormal lab results 12/24/18 12/24/18 12/25/18 Range/Units 17:15 17:15 07:00 WBC 4.36 L (4.4-10.8) k/cumm RBC 3.70 L (4.00-5.20) m/cumm Hgb 11.0 L (12.0-15.5) g/dL Hct 33.0 L (36.0-46.0) % Absolute Lymphocytes 0.55 L (1.2-3.4) k/cumm Potassium 3.3 L 3.0 L (3.5-5.1) mmol/L Chloride 108 H (98-107) mmol/L Anion Gap 11.2 H (3-11) mmol/L BUN 33 H 30 H (7-18) mg/dL Creatinine 1.30 H 1.21 H (0.55-1.02) mg/dL Glucose 111 H (70-100) mg/dL Calcium 8.0 L (8.5-10.1) mg/dL Total Protein 6.2 L (6.4-8.2) g/dL Albumin 2.8 L (3.4-5.0) g/dL 12/25/18 Range/Units 07:00 WBC 2.62 L D (4.4-10.8) k/cumm RBC 3.13 L (4.00-5.20) m/cumm Hgb 9.4 L (12.0-15.5) g/dL Hct 28.4 L (36.0-46.0) % Absolute Lymphocytes (1.2-3.4) k/cumm Potassium (3.5-5.1) mmol/L Chloride (98-107) mmol/L Anion Gap (3-11) mmol/L BUN (7-18) mg/dL Creatinine (0.55-1.02) mg/dL Glucose (70-100) mg/dL Calcium (8.5-10.1) mg/dL Total Protein (6.4-8.2) g/dL Albumin (3.4-5.0) g/dL Vital Signs Temperature 37.0 C 12/25/18 11:07 Temperature Source Tympanic 12/25/18 11:07 Pulse 56 L 12/25/18 11:07 Pulse Rhythm Regular 12/25/18 07:26 Respiratory Rate 18 12/25/18 11:07 Respiratory Effort Non-Labored 12/25/18 07:26 Respiratory Depth Normal 12/25/18 07:26 Respiratory Pattern Normal 12/25/18 07:26 Blood Pressure 125/82 12/25/18 11:07 Pulse Oximetry 98 12/25/18 11:07 Oxygen Delivery Method Room Air 12/25/18 11:07 Oxygen Flow Rate 0 12/25/18 11:07 Pain Level 4 12/24/18 16:46 Intake & Output 12/24/18 12/25/18 12/25/18 23:59 11:59 23:59 Intake Total 3100 / 3100 1497.5 / 1737.5 240 / 1737.5 Output Total 700 / 700 1100 / 1700 600 / 1700 Balance 2400 / 2400 397.5 / 37.5 -360 / 37.5 Weight 107.048 kg 107.1 kg Intake: IV 3100 / 3100 1497.5 / 1737.5 240 / 1737.5 Output: Urine 700 / 700 1100 / 1700 600 / 1700 Other: Urine Color Yellow Yellow Yellow Urine Appearance Clear Clear Clear Urine Odor Normal Normal Normal Stool Size Moderate Stool Characteristics Liquid Liquid Brown Emesis Description Retching Voiding Methods Toilet Toilet Toilet Laboratory Results WBC 2.62 k/cumm (4.4-10.8) L D 12/25/18 07:00 RBC 3.13 m/cumm (4.00-5.20) L 12/25/18 07:00 Hgb 9.4 g/dL (12.0-15.5) L 12/25/18 07:00 Hct 28.4 % (36.0-46.0) L 12/25/18 07:00 MCV 90.7 fL (80-95) 12/25/18 07:00 MCH 30.0 pg (27.0-33.0) 12/25/18 07:00 MCHC 33.1 g/dL (32.0-36.0) 12/25/18 07:00 RDW 13.4 % (11.7-14.6) 12/25/18 07:00 Plt Count 140 x1000/uL (130-400) 12/25/18 07:00 MPV 9.6 fL (8.0-11.0) 12/25/18 07:00 Immature Gran % 0.2 12/24/18 17:15 Neutrophils % 79.2 12/24/18 17:15 Lymphocytes % 12.6 12/24/18 17:15 Monocytes % 7.6 12/24/18 17:15 Eosinophils % 0.2 12/24/18 17:15 Basophils % 0.2 12/24/18 17:15 Absolute Neutrophils 3.45 k/cumm (1.2-6.7) 12/24/18 17:15 Absolute Lymphocytes 0.55 k/cumm (1.2-3.4) L 12/24/18 17:15 Absolute Monocytes 0.33 k/cumm (0.11-0.7) 12/24/18 17:15 Absolute Eosinophils 0.01 k/cumm (0.0-0.7) 12/24/18 17:15 Absolute Basophils 0.01 k/cumm (0.0-0.2) 12/24/18 17:15 Sodium 144 mmol/L (136-145) 12/25/18 07:00 Potassium 3.0 mmol/L (3.5-5.1) L 12/25/18 07:00 Chloride 108 mmol/L (98-107) H 12/25/18 07:00 Carbon Dioxide 27.3 mmol/L (21.0-32.0) 12/25/18 07:00 Anion Gap 8.7 mmol/L (3-11) 12/25/18 07:00 BUN 30 mg/dL (7-18) H 12/25/18 07:00 Creatinine 1.21 mg/dL (0.55-1.02) H 12/25/18 07:00 Estimated GFR/1.73 m2 46.03 (mL/min/1.73m2) 12/25/18 07:00 Glucose 95 mg/dL (70-100) 12/25/18 07:00 Calcium 8.0 mg/dL (8.5-10.1) L 12/25/18 07:00 Magnesium 1.9 mg/dL (1.8-2.4) 12/24/18 17:15 Total Bilirubin 0.3 mg/dL (0.2-1.0) 12/25/18 07:00 AST 21 U/L (15-37) 12/25/18 07:00 ALT 55 U/L (12-78) 12/25/18 07:00 Alkaline Phosphatase 80 U/L (46-116) 12/25/18 07:00 Total Protein 6.2 g/dL (6.4-8.2) L 12/25/18 07:00 Albumin 2.8 g/dL (3.4-5.0) L 12/25/18 07:00 Lipase 170 U/L (73-393) 12/24/18 17:15
--- NOTE | 2018-12-25 14:51 | PDOC.CMIN ---
- If Service Date Differs Date of service: 12/25/18 Time of Service: 14:51 Care Management Initial Assess REASON FOR HOSPITALIZATION:: Dehydration PAST MEDICAL HISTORY/PAST SURGICAL HISTORY:: Tonsil cancer, GERD. Surgical hx cholecystectomy and tonsilectomy. ADVANCE DIRECTIVES:: None on file at [facility] Has patient been provided with information about the portal?: Yes Did the patient sign up for the portal?: No CODE STATUS:: Full Code INSURANCE COVERAGE / FINANCIAL ISSUES:: BS CURRENT HOME/COMMUNITY SERVICES/EQUIPMENT:: [facility] oncology and outpatient infusion services PRIMARY CARE PHYSICIAN:: POTENTIAL DISCHARGE NEEDS:: Follow up appointment with oncology PATIENT/FAMILY EDUCATION NEEDS:: Discharge education, limitations and follow up plan of care including ask me three and self management. ANTICIPATED BARRIERS TO DISCHARGE:: None identified. TRANSPORTATION:: Via private car with family at time of discharge. PLAN:: Kalyani is being treated with antimetics, and IV fluids. Anticipate she will be discharged home when medically ready and follow up with [facility] as directed. Anticipate no addtional services at time of discharge.
--- NOTE | 2018-12-25 15:01 | INITIAL_ITS ---
- If Service Date Differs Date of service: 12/25/18 Time of Service: 14:51 Care Management Initial Assess REASON FOR HOSPITALIZATION:: Dehydration PAST MEDICAL HISTORY/PAST SURGICAL HISTORY:: Tonsil cancer, GERD. Surgical hx cholecystectomy and tonsilectomy. ADVANCE DIRECTIVES:: None on file at [facility] Has patient been provided with information about the portal?: Yes Did the patient sign up for the portal?: No CODE STATUS:: Full Code INSURANCE COVERAGE / FINANCIAL ISSUES:: BS CURRENT HOME/COMMUNITY SERVICES/EQUIPMENT:: [facility] oncology and outpatient infusion services PRIMARY CARE PHYSICIAN:: POTENTIAL DISCHARGE NEEDS:: Follow up appointment with oncology PATIENT/FAMILY EDUCATION NEEDS:: Discharge education, limitations and follow up plan of care including ask me three and self management. ANTICIPATED BARRIERS TO DISCHARGE:: None identified. TRANSPORTATION:: Via private car with family at time of discharge. PLAN:: Kalyani is being treated with antimetics, and IV fluids. Anticipate she will be discharged home when medically ready and follow up with [facility] as directed. Anticipate no addtional services at time of discharge.
[2018-12-25] MEDS: LORazepam 0.5 MG TAB PO (20:09)
[2018-12-26] MEDS: Ondansetron 4 MG/2 ML VIAL IVP ×2 (00:53→07:34)
[2018-12-26 00:55] VITALS: RESP 16; TEMP 36.6
[2018-12-26 01:33] VITALS: BP 128/76; PULSE 62; RESP 16; TEMP 37; O2SAT 98
[2018-12-26] MEDS: Prochlorperazine 10 MG/2 ML VIAL 5 MG IVP ×2 (04:00→08:38)
[2018-12-26] MEDS: Normal Saline Flush 10 ML SYR IVP ×4 (04:41→09:47)
[2018-12-26] MEDS: POTASSIUM CHLORIDE/0.9% NACL 1,000 ML 125 MEQ IV (04:44)
[2018-12-26] MEDS: Heparin 5,000 UNITS/ML VIAL 5000 UNITS SC (05:34)
[2018-12-26 05:42] VITALS: BP 128/77; PULSE 68; RESP 17; TEMP 36.6; O2SAT 98
[2018-12-26] MEDS: Pantoprazole 40 MG VIAL IVP (07:34)
[2018-12-26 07:51] VITALS: O2SAT 99
[2018-12-26 08:18] VITALS: BP 125/88; PULSE 64; RESP 20; TEMP 36.4; O2SAT 99
--- NOTE | 2018-12-26 09:36 | W.PM.DS.N ---
Date of service: 12/26/18 Time of Service: 09:36 DS: Diagnosis Discharge Diagnosis (1) Dehydration, moderate: Status: Acute (2) Hypokalemia: Status: Acute (3) Nausea & vomiting: Status: Acute (4) Tonsil cancer: Status: Acute (5) DVT prophylaxis: Status: Acute (6) GERD (gastroesophageal reflux disease): Status: Chronic Discharge Plan Disposition Patient Disposition: HOME Condition: Good Discharge Details Reason For Visit: DEHYDRATION WITH CHEMOTHERAPY/INTRACTABLE N/V Admit Date/Time: 12/24/18 19:58 Admit Provider: Brendan Sutton Attending Provider: Brendan Sutton Primary Care Provider: Josue Vela Hospital Course Hospital Course: Nausea and vomiting status post second round of chemotherapy Narrative: This is a 58-year-old lady with 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 Patient reported to the emergency room for evaluation and was treated symptomatically with Reglan having failed Phenergan suppositories and Zofran orally at home. She does have a G-tube which was placed after her surgery and November and even with Gatorade being given through the G-tube she was vomiting up everything in her stomach. In the emergency room she was seen to be dehydrated with a slight bump in her creatinine and she responded to IV fluid resuscitation with IV Reglan given once and then repeat IV Zofran. She was hypokalemic and did be seeing some IV potassium in the ED. Labs with follow-up in the morning. She does have a past history of asthma and is not actively on inhalers and does take medicines for GERD since placement of her G-tube and she is treated for idiopathic hypersomnolence with methylphenidate. She has lost about 20 pounds since she was diagnosed with cancer and she is having issues with maintaining nutrition with her therapies. Her only other past surgical history was a cholecystectomy. Today she is feeling better. She appears well hydrated, she states she is feeling much better and ready to go home. She does have an appt this am with oncology they will do a lab draw there. (1) Dehydration, moderate Dehydration appears better by labs. Pt does still look dry in mucus membranes. She is c/o diarrhea as well. Stool sample to r/o cdiff. If negative consider imodium as this could be a side effect of chemo. Continue hydration over night. Reevaluate in am possible discharge home in the morning. N/V seems to be controlled. Still feeling slightly nauseated, no vomiting since admission. Compazine and zofran for nausea. (2) Hypokalemia: potassium level is 3.0 despite receiving k runs yesterday. Replete with 2 runs of 20 meq potassium and IVF of NS with 20 K at 125 an hour. Check am labs and monitor. (3) Nausea & vomiting as above with IV PPI and IV Zofran and and oral Compazine as needed. Feeling better. Less nauseated. (4) Tonsil cancer: Currently receiving chemo for tonsil cancer. PEG tube in place, nothing by mouth. (5) DVT prophylaxis: Heparin Subcu (6) GERD (gastroesophageal reflux disease Status: Chronic IV PPI Home Meds and New Rx's Prescriptions: Continued methylphenidate HCl 10 MG tablet 10 mg PO TID PRNRF: 0 promethazine [Phenergan] 50 mg Suppository 50 mg IN Q6H PRNRF: 0 famotidine [Pepcid] 20 mg Tablet 20 mg PO HS RF: 0 lorazepam 0.5 mg Tablet 0.5 mg PO PRNRF: 0 Prilosec OTC 20 mg Tablet,Delayed Release (Dr/Ec) 20 mg PO DAILY RF: 0 Discharge Instructions Instructions: Dehydration (GEN), Chemo Induced Nausea and Vomiting (GEN) Additional Instructions: Take nausea medication at the start of feeling nauseated. Go right to your appointment from discharge. Drink plenty of fluids. If you have a fever, CP, SOB go to the emergency room immediately. Activity:: Activity as Tolerated Equipment/Supplies:: No Equipment Needed Diet:: PEG tube Discharge Orders Discharge Orders: Discharge Order (Routine); Ordered 12/26/18 Ordered By: Macarena Madera Exam Const General: cooperative, healthy appearing, comfortable and no acute distress HENMT Throat: abnormal tonsil Neck Neck: normal visual inspection and full ROM Lymphatic: lymphadenopathy Chest Chest: normal inspection of the chest Resp Effort & Inspection: normal respiratory effort and able to speak in complete sentences Cardio Jugular venous pressure: no JVD Palpation: normal PMI Rate: regular rate Rhythm: regular rhythm Heart Sounds: S1 normal and S2 normal GI Palpation: soft and no hepatosplenomegaly Auscultation: hypoactive bowel sounds Back/Spine/Pelvis Back: no CVA tenderness Skin General skin exam: no rashes or lesions noted Neuro General: alert, awake and oriented x3 DS: Data Vitals/I&O Vitals and I&O: Vital Signs Temperature 36.4 C L 12/26/18 08:18 Temperature Source Tympanic 12/26/18 08:18 Pulse 64 12/26/18 08:18 Pulse Rhythm Regular 12/26/18 07:32 Respiratory Rate 20 12/26/18 08:18 Respiratory Effort Non-Labored 12/26/18 07:32 Respiratory Depth Normal 12/26/18 07:32 Respiratory Pattern Normal 12/26/18 07:32 Blood Pressure 125/88 12/26/18 08:18 Pulse Oximetry 99 12/26/18 08:18 Oxygen Delivery Method Room Air 12/26/18 08:18 Oxygen Flow Rate 0 12/26/18 08:18 Pain Level 4 12/24/18 16:46 Comment 12/26/18 00:55 Intake & Output 12/25/18 12/25/18 12/26/18 11:59 23:59 11:59 Intake Total 1497.5 / 3612.500 2115.000 / 3612.500 914.583 / 914.583 Output Total 1100 / 3800 2700 / 3800 1600 / 1600 Balance 397.5 / -187.500 -585.000 / -187.500 -685.417 / -685.417 Weight 107.1 kg 105.8 kg Intake: IV 1497.5 / 3612.500 2115.000 / 3612.500 914.583 / 914.583 Output: Urine 1100 / 3800 2700 / 3800 1600 / 1600 Other: Urine Color Yellow Yellow Yellow Urine Appearance Clear Clear Clear Urine Odor Normal Normal Stool Size Moderate Small Stool Characteristics Liquid Liquid Brown Brown Voiding Methods Toilet Toilet Toilet Labs on day of discharge: Labs from last 24 hours 12/26/18 12/26/18 09:29 09:29 WBC Cancelled RBC Cancelled Hgb Cancelled Hct Cancelled MCV Cancelled MCH Cancelled MCHC Cancelled RDW Cancelled Plt Count Cancelled MPV Cancelled Sodium Cancelled Potassium Cancelled Chloride Cancelled Carbon Dioxide Cancelled Anion Gap Cancelled BUN Cancelled Creatinine Cancelled Estimated GFR/1.73 m2 Cancelled Glucose Cancelled Calcium Cancelled [facility] Medical History Idiopathic hypersomnolence (Acute) Tonsil cancer (Acute) GERD (gastroesophageal reflux disease) (Chronic) Surgical History S/P cholecystectomy (Resolved) S/P tonsillectomy (Resolved) Social History Smoking/Tobacco Use Status: Never Alcohol Intake: never Drug use: Never Do you feel safe at home: Yes Do you feel safe in your relationship?: Yes
--- NOTE | 2018-12-26 09:39 | DSE_ITS ---
Date of service: 12/26/18 Time of Service: 09:36 DS: Diagnosis Discharge Diagnosis (1) Dehydration, moderate: Status: Acute (2) Hypokalemia: Status: Acute (3) Nausea & vomiting: Status: Acute (4) Tonsil cancer: Status: Acute (5) DVT prophylaxis: Status: Acute (6) GERD (gastroesophageal reflux disease): Status: Chronic Discharge Plan Disposition Patient Disposition: HOME Condition: Good Discharge Details Reason For Visit: DEHYDRATION WITH CHEMOTHERAPY/INTRACTABLE N/V Admit Date/Time: 12/24/18 19:58 Admit Provider: Brendan Sutton Attending Provider: Brendan Sutton Primary Care Provider: Josue Vela Hospital Course Hospital Course: Nausea and vomiting status post second round of chemotherapy Narrative: This is a 58-year-old lady with recent diagnosis of left tonsillar cancer (non- smoker/HPV associated T2 N1 M0) which she noticed in late 2017 with diagnosis and treatment with local ENT and now [facility] oncology treating since November 2018 status post prophylactic right tonsillectomy and G- tube placement with daily radiation therapy and now having received her second round of 3 sessions of chemotherapy Wednesday of last week with onset of severe nausea and vomiting the day prior to admission. Patient reported to the emergency room for evaluation and was treated symptomatically with Reglan having failed Phenergan suppositories and Zofran orally at home. She does have a G- tube which was placed after her surgery and November and even with Gatorade being given through the G-tube she was vomiting up everything in her stomach. In the emergency room she was seen to be dehydrated with a slight bump in her creatinine and she responded to IV fluid resuscitation with IV Reglan given once and then repeat IV Zofran. She was hypokalemic and did be seeing some IV potassium in the ED. Labs with follow-up in the morning. She does have a past history of asthma and is not actively on inhalers and does take medicines for GERD since placement of her G-tube and she is treated for idiopathic hypersomnolence with methylphenidate. She has lost about 20 pounds since she was diagnosed with cancer and she is having issues with maintaining nutrition with her therapies. Her only other past surgical history was a cholecystectomy. Today she is feeling better. She appears well hydrated, she states she is feeling much better and ready to go home. She does have an appt this am with oncology they will do a lab draw there. (1) Dehydration, moderate Dehydration appears better by labs. Pt does still look dry in mucus membranes. She is c/o diarrhea as well. Stool sample to r/o cdiff. If negative consider imodium as this could be a side effect of chemo. Continue hydration over night. Reevaluate in am possible discharge home in the morning. N/V seems to be controlled. Still feeling slightly nauseated, no vomiting since admission. Compazine and zofran for nausea. (2) Hypokalemia: potassium level is 3.0 despite receiving k runs yesterday. Replete with 2 runs of 20 meq potassium and IVF of NS with 20 K at 125 an hour. Check am labs and monitor. (3) Nausea & vomiting as above with IV PPI and IV Zofran and and oral Compazine as needed. Feeling better. Less nauseated. (4) Tonsil cancer: Currently receiving chemo for tonsil cancer. PEG tube in place, nothing by mouth. (5) DVT prophylaxis: Heparin Subcu (6) GERD (gastroesophageal reflux disease Status: Chronic IV PPI Home Meds and New Rx's Prescriptions: Continued methylphenidate HCl 10 MG tablet 10 mg PO TID PRNRF: 0 promethazine [Phenergan] 50 mg Suppository 50 mg IN Q6H PRNRF: 0 famotidine [Pepcid] 20 mg Tablet 20 mg PO HS RF: 0 lorazepam 0.5 mg Tablet 0.5 mg PO PRNRF: 0 Prilosec OTC 20 mg Tablet,Delayed Release (Dr/Ec) 20 mg PO DAILY RF: 0 Discharge Instructions Instructions: Dehydration (GEN), Chemo Induced Nausea and Vomiting (GEN) Additional Instructions: Take nausea medication at the start of feeling nauseated. Go right to your appointment from discharge. Drink plenty of fluids. If you have a fever, CP, SOB go to the emergency room immediately. Activity:: Activity as Tolerated Equipment/Supplies:: No Equipment Needed Diet:: PEG tube Discharge Orders Discharge Orders: Discharge Order (Routine); Ordered 12/26/18 Ordered By: Macarena Madera Exam Const General: cooperative, healthy appearing, comfortable and no acute distress HENMT Throat: abnormal tonsil Neck Neck: normal visual inspection and full ROM Lymphatic: lymphadenopathy Chest Chest: normal inspection of the chest Resp Effort & Inspection: normal respiratory effort and able to speak in complete sentences Cardio Jugular venous pressure: no JVD Palpation: normal PMI Rate: regular rate Rhythm: regular rhythm Heart Sounds: S1 normal and S2 normal GI Palpation: soft and no hepatosplenomegaly Auscultation: hypoactive bowel sounds Back/Spine/Pelvis Back: no CVA tenderness Skin General skin exam: no rashes or lesions noted Neuro General: alert, awake and oriented x3 DS: Data Vitals/I&O Vitals and I&O: Vital Signs Temperature 36.4 C L 12/26/18 08:18 Temperature Source Tympanic 12/26/18 08:18 Pulse 64 12/26/18 08:18 Pulse Rhythm Regular 12/26/18 07:32 Respiratory Rate 20 12/26/18 08:18 Respiratory Effort Non-Labored 12/26/18 07:32 Respiratory Depth Normal 12/26/18 07:32 Respiratory Pattern Normal 12/26/18 07:32 Blood Pressure 125/88 12/26/18 08:18 Pulse Oximetry 99 12/26/18 08:18 Oxygen Delivery Method Room Air 12/26/18 08:18 Oxygen Flow Rate 0 12/26/18 08:18 Pain Level 4 12/24/18 16:46 Comment 12/26/18 00:55 Intake & Output 12/25/18 12/25/18 12/26/18 11:59 23:59 11:59 Intake Total 1497.5 / 3612.500 2115.000 / 3612.500 914.583 / 914.583 Output Total 1100 / 3800 2700 / 3800 1600 / 1600 Balance 397.5 / -187.500 -585.000 / -187.500 -685.417 / -685.417 Weight 107.1 kg 105.8 kg Intake: IV 1497.5 / 3612.500 2115.000 / 3612.500 914.583 / 914.583 Output: Urine 1100 / 3800 2700 / 3800 1600 / 1600 Other: Urine Color Yellow Yellow Yellow Urine Appearance Clear Clear Clear Urine Odor Normal Normal Stool Size Moderate Small Stool Characteristics Liquid Liquid Brown Brown Voiding Methods Toilet Toilet Toilet Labs on day of discharge: Labs from last 24 hours 12/26/18 12/26/18 09:29 09:29 WBC Cancelled RBC Cancelled Hgb Cancelled Hct Cancelled MCV Cancelled MCH Cancelled MCHC Cancelled RDW Cancelled Plt Count Cancelled MPV Cancelled Sodium Cancelled Potassium Cancelled Chloride Cancelled Carbon Dioxide Cancelled Anion Gap Cancelled BUN Cancelled Creatinine Cancelled Estimated GFR/1.73 m2 Cancelled Glucose Cancelled Calcium Cancelled [facility] Medical History Idiopathic hypersomnolence (Acute) Tonsil cancer (Acute) GERD (gastroesophageal reflux disease) (Chronic) Surgical History S/P cholecystectomy (Resolved) S/P tonsillectomy (Resolved) Social History Smoking/Tobacco Use Status: Never Alcohol Intake: never Drug use: Never Do you feel safe at home: Yes Do you feel safe in your relationship?: Yes
[2018-12-26] MEDS: Heparin 500 UNITS/5 ML SYRINGE IVP (09:47)
== END 2018-12-26 10:00 | disposition home or self-care (01) ==
LOC: ER 20:53 → MS 21:05
PROVIDERS: Admitting Provider Family Medicine; Emergency Provider Student in an Organized Health Care Education/Training Program; PCP Emergency Medicine; Visit Provider Family Medicine
DX: E86.0 Dehydration (principal); R11.2 Nausea with vomiting, unspecified; T45.1X5A Adverse effect of antineoplastic and immunosuppressive drugs, initial encounter; E87.6 Hypokalemia; C09.9 Malignant neoplasm of tonsil, unspecified; R19.7 Diarrhea, unspecified; K21.9 Gastro-esophageal reflux disease without esophagitis; Z93.1 Gastrostomy status; Z79.899 Other long term (current) drug therapy; Z90.09 Acquired absence of other part of head and neck
CPT/HCPCS: 36415; 80048; 80053; 83690; 85027; 96361; 96365; 99219; 99233; 99239; 99285; 83735; 85025; 87324; 99217; 99226; 99284; G0378; J0780; J1644; J2405; J2765; J3480

== ENCOUNTER 2018-12-29 10:00 | Outpatient (RCR) | payer BC, SELFPAY ==
[2018-12-05] MEDS: Normal Saline Flush 10 ML SYR IVP (09:15)
[2018-12-05] MEDS: Heparin 500 UNITS/5 ML SYRINGE IV (09:15)
[2018-12-05 09:48] LABS: Absolute Basophil Count 0.01 k/cumm (0.0-0.2); Absolute Eosinophil Count 0.04 k/cumm (0.0-0.7); Absolute Lymphocyte Count 1.17 k/cumm (1.2-3.4); Absolute Monocyte Count 0.34 k/cumm (0.11-0.7); Absolute Neutrophil Count 2.58 k/cumm (1.2-6.7); Basophils % 0.2; HCT 37.3 % (36.0-46.0); HGB 12.7 g/dL (12.0-15.5); Lymphocytes % 28.3; Mean Corpuscular Hemoglobin 29.8 pg (27.0-33.0); Mean Corpuscular Volume 87.6 fL (80-95); Mean Platelet Volume 10.3 fL (8.0-11.0); Monocytes % 8.2; Neutrophils % 62.3; Platelet Count 219 x1000/uL (130-400); RBC 4.26 m/cumm (4.00-5.20); RBC Distribution Width 12.7 % (11.7-14.6); White Blood Cell Count 4.14 k/cumm (4.4-10.8)
[2018-12-05 09:59] LABS: ALT 58 U/L (12-78); AST 15 U/L (15-37); Albumin 3.9 g/dL (3.4-5.0); Alkaline Phosphatase 95 U/L (46-116); BUN 19 mg/dL (7-18); Bilirubin, Total 0.5 mg/dL (0.2-1.0); CREATININE 1.19 mg/dL (0.55-1.02); Calcium 8.8 mg/dL (8.5-10.1); Chloride 99 mmol/L (98-107); Estimated GFR 46.92 (mL/min/1.73m2); Glucose 122 mg/dL (70-100); Magnesium 1.6 mg/dL (1.8-2.4); Sodium 138 mmol/L (136-145); Total Protein 7.6 g/dL (6.4-8.2)
[2018-12-05 10:07] LABS: Potassium 2.8 mmol/L (3.5-5.1)
[2018-12-12] MEDS: Heparin 500 UNITS/5 ML SYRINGE IV (08:50)
[2018-12-12] MEDS: Normal Saline Flush 10 ML SYR IVP (08:50)
[2018-12-12 09:22] LABS: Abs Immature Grans 0.01 k/cumm (0.0-0.09); Absolute Basophil Count 0.02 k/cumm (0.0-0.2); Absolute Eosinophil Count 0.04 k/cumm (0.0-0.7); Absolute Lymphocyte Count 0.94 k/cumm (1.2-3.4); Absolute Monocyte Count 0.49 k/cumm (0.11-0.7); Basophils % 0.4; Eosinophils % 0.7; HGB 11.4 g/dL (12.0-15.5); Immature Grans % 0.2; Lymphocytes % 17.1; Mean Corp. HGB Concentration 33.5 g/dL (32.0-36.0); Mean Corpuscular Hemoglobin 30.2 pg (27.0-33.0); Mean Corpuscular Volume 90.2 fL (80-95); Mean Platelet Volume 10.6 fL (8.0-11.0); Monocytes % 8.9; Neutrophils % 72.7; Platelet Count 152 x1000/uL (130-400); RBC 3.77 m/cumm (4.00-5.20); RBC Distribution Width 13.2 % (11.7-14.6)
[2018-12-12 09:35] LABS: ALT 29 U/L (12-78); AST 15 U/L (15-37); Albumin 3.6 g/dL (3.4-5.0); Alkaline Phosphatase 92 U/L (46-116); Anion Gap 8.7 mmol/L (3-11); BUN 17 mg/dL (7-18); Bilirubin, Total 0.4 mg/dL (0.2-1.0); CO2 27.3 mmol/L (21.0-32.0); CREATININE 0.88 mg/dL (0.55-1.02); Calcium 8.8 mg/dL (8.5-10.1); Chloride 102 mmol/L (98-107); Glucose 108 mg/dL (70-100); Magnesium 1.9 mg/dL (1.8-2.4); Sodium 138 mmol/L (136-145); Total Protein 7.3 g/dL (6.4-8.2)
[2018-12-19] MEDS: Normal Saline Flush 10 ML SYR IVP (09:25)
[2018-12-19 09:46] LABS: Absolute Basophil Count 0.01 k/cumm (0.0-0.2); Absolute Eosinophil Count 0.06 k/cumm (0.0-0.7); Absolute Lymphocyte Count 0.65 k/cumm (1.2-3.4); Absolute Monocyte Count 0.42 k/cumm (0.11-0.7); Absolute Neutrophil Count 1.53 k/cumm (1.2-6.7); Basophils % 0.4; Eosinophils % 2.2; HCT 34.7 % (36.0-46.0); HGB 11.4 g/dL (12.0-15.5); Lymphocytes % 24.3; Mean Corp. HGB Concentration 32.9 g/dL (32.0-36.0); Mean Corpuscular Hemoglobin 29.5 pg (27.0-33.0); Mean Corpuscular Volume 89.7 fL (80-95); Mean Platelet Volume 9.6 fL (8.0-11.0); Monocytes % 15.7; Neutrophils % 57.4; Platelet Count 181 x1000/uL (130-400); RBC 3.87 m/cumm (4.00-5.20); RBC Distribution Width 13.4 % (11.7-14.6); White Blood Cell Count 2.67 k/cumm (4.4-10.8)
[2018-12-19 10:07] LABS: ALT 29 U/L (12-78); AST 13 U/L (15-37); Albumin 3.8 g/dL (3.4-5.0); Alkaline Phosphatase 100 U/L (46-116); Anion Gap 11.1 mmol/L (3-11); BUN 22 mg/dL (7-18); Bilirubin, Total 0.4 mg/dL (0.2-1.0); CO2 24.9 mmol/L (21.0-32.0); CREATININE 0.79 mg/dL (0.55-1.02); Calcium 9.2 mg/dL (8.5-10.1); Chloride 100 mmol/L (98-107); Glucose 138 mg/dL (70-100); Potassium 3.7 mmol/L (3.5-5.1); Sodium 136 mmol/L (136-145)
[2018-12-26] MEDS: Heparin 500 UNITS/5 ML SYRINGE IV (12:20)
[2018-12-26] MEDS: Normal Saline Flush 10 ML SYR IVP (12:20)
[2018-12-26 12:39] LABS: Abs Immature Grans 0.02 k/cumm (0.0-0.09); Absolute Basophil Count 0.01 k/cumm (0.0-0.2); Absolute Eosinophil Count 0.01 k/cumm (0.0-0.7); Absolute Lymphocyte Count 0.29 k/cumm (1.2-3.4); Absolute Monocyte Count 0.24 k/cumm (0.11-0.7); Absolute Neutrophil Count 3.21 k/cumm (1.2-6.7); Basophils % 0.3; Eosinophils % 0.3; HCT 30.2 % (36.0-46.0); Immature Grans % 0.5; Lymphocytes % 7.7; Mean Corp. HGB Concentration 33.1 g/dL (32.0-36.0); Mean Corpuscular Hemoglobin 29.7 pg (27.0-33.0); Mean Corpuscular Volume 89.6 fL (80-95); Mean Platelet Volume 9.1 fL (8.0-11.0); Monocytes % 6.3; Neutrophils % 84.9; Platelet Count 134 x1000/uL (130-400); RBC 3.37 m/cumm (4.00-5.20); RBC Distribution Width 13.3 % (11.7-14.6); White Blood Cell Count 3.78 k/cumm (4.4-10.8)
[2018-12-26 12:46] LABS: ALT 53 U/L (12-78); AST 20 U/L (15-37); Albumin 3.4 g/dL (3.4-5.0); Alkaline Phosphatase 90 U/L (46-116); Anion Gap 12.5 mmol/L (3-11); BUN 31 mg/dL (7-18); Bilirubin, Total 0.3 mg/dL (0.2-1.0); CO2 25.5 mmol/L (21.0-32.0); CREATININE 1.52 mg/dL (0.55-1.02); Chloride 107 mmol/L (98-107); Estimated GFR 35.38 (mL/min/1.73m2); Glucose 145 mg/dL (70-100); Magnesium 1.4 mg/dL (1.8-2.4); Potassium 3.1 mmol/L (3.5-5.1); Sodium 145 mmol/L (136-145)
[2018-12-29] MEDS: Normal Saline Flush 10 ML SYR IVP (10:26)
[2018-12-29 10:42] LABS: ALT 40 U/L (12-78); AST 16 U/L (15-37); Albumin 3.4 g/dL (3.4-5.0); Alkaline Phosphatase 89 U/L (46-116); Anion Gap 9.9 mmol/L (3-11); BUN 30 mg/dL (7-18); Bilirubin, Total 0.5 mg/dL (0.2-1.0); CO2 30.1 mmol/L (21.0-32.0); CREATININE 1.35 mg/dL (0.55-1.02); Calcium 8.1 mg/dL (8.5-10.1); Chloride 110 mmol/L (98-107); Estimated GFR 40.57 (mL/min/1.73m2); Glucose 130 mg/dL (70-100); Magnesium 1.7 mg/dL (1.8-2.4); Sodium 150 mmol/L (136-145); Total Protein 7.3 g/dL (6.4-8.2)
[2018-12-29 10:56] LABS: Abs Immature Grans 0.01 k/cumm (0.0-0.09); Absolute Lymphocyte Count 0.37 k/cumm (1.2-3.4); Absolute Neutrophil Count 2.87 k/cumm (1.2-6.7); HGB 9.9 g/dL (12.0-15.5); Immature Grans % 0.3; Lymphocytes % 10.7; Mean Corpuscular Hemoglobin 29.6 pg (27.0-33.0); Mean Corpuscular Volume 89.8 fL (80-95); Mean Platelet Volume 9.8 fL (8.0-11.0); Monocytes % 5.8; Neutrophils % 83.2; Potassium 2.4 mmol/L (3.5-5.1); RBC 3.34 m/cumm (4.00-5.20); RBC Distribution Width 13.6 % (11.7-14.6); White Blood Cell Count 3.45 k/cumm (4.4-10.8)
[2018-12-29 11:12] LABS: Platelet Count 100 x1000/uL (130-400)
[2018-12-29 11:13] LABS: RBC Morphology Normal
== END 2019-01-03 23:59 | disposition home or self-care (01) ==
LOC: INF 10:00
PROVIDERS: PCP Emergency Medicine; Visit Provider Nurse Practitioner Adult Health
DX: C09.9 Malignant neoplasm of tonsil, unspecified (principal); Z45.2 Encounter for adjustment and management of vascular access device
CPT/HCPCS: 36591; 80053; 83735; 85025

== ENCOUNTER 2018-12-29 10:05 | Outpatient (RCR) | payer BC, SELFPAY | END 2019-01-03 23:59 | disposition home or self-care (01) | LOC: INF 10:05 | PROVIDERS: PCP Emergency Medicine; Visit Provider Nurse Practitioner Adult Health | DX: C09.9 Malignant neoplasm of tonsil, unspecified (principal) ==

== ENCOUNTER 2019-01-16 16:11 | Observation (INO) | payer BC, SELFPAY ==
[2019-01-16 16:00] VITALS: BP 123/83; PULSE 83; RESP 14; RESP 19; TEMP 37.7; O2SAT 99
[2019-01-16] MEDS: Normal Saline 1,000 ML 150 ML IV ×2 (16:20→22:02)
--- NOTE | 2019-01-16 16:22 | W.PM.HP.N ---
Date of service: 01/16/19 Time of Service: 16:22 Assessment and Plan (1) Hypokalemia: Start date: 01/16/19 Start time: 16:35 Current visit: No Status: Acute Potassium level 3.3 replete with 40 k now and 30 six hours after for K 4.0. Recheck level in am and monitor, her magnesium level was also low at 1.4 she received 2 gms at [facility] and another 4 grams have been ordered to achieve mag level 2.0 with PO mag ox daily starting tomorrow. 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 (4) Nausea & vomiting: Start date: 01/16/19 Start time: 16:37 Current visit: No Status: Acute Vomiting onset Wednesday with daily IV infusion through port., Last episode of vomiting was prior to 10 am radiation she did try a phenergan suppository at 6 am, and PEG tube feeding she has not vomited since prior to radiation. Phenergan 25 mg q 6 IV with zofran q 4 hours IV. NS at 150, mucus membranes moist, lips dry, continue to monitor hydration status and labs. (5) Dehydration, moderate: Start date: 01/16/19 Start time: 16:39 Current visit: No Status: Acute See above, in setting of chemo/radiation, continue to monitor. 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 Wednesday she had onset of severe nausea and vomiting . She went to the cancer center this morning for her last radiation treatment and told them she had been nauseated with vomiting since wednesday they wanted to finish the last round of radiation then called the hospitalist service at [facility] for admission for dehydration n/v. After her last observation stay the [facility] infused her daily with fluids to avoid dehydration, however it was not apparently working at this time and felt she needed more fluid then could be provided. We have admitted her to M/S observation for hydration and antiemetics of zofran and phenergan which she seemed to respond well to last time. Her potassium and magnesium will be repleted and monitored; she will receive IVF at 150 and prn tube feeding per her home regimen. She denies chest pain, diarrhea, nausea at this time, vomiting at this time and shortness of breath. Review of Systems Review of Systems All systems reviewed & are unremarkable except as noted in HPI and below ENT Reports as per HPI Gastrointestinal Reports nausea and Reports vomiting [facility] Medical History Idiopathic hypersomnolence (Acute) Tonsil cancer (Acute) GERD (gastroesophageal reflux disease) (Chronic) Surgical History S/P cholecystectomy (Resolved) S/P tonsillectomy (Resolved) Social History Smoking/Tobacco Use Status: Never Alcohol Intake: never Drug use: Never Do you feel safe at home: Yes Do you feel safe in your relationship?: Yes Meds Home Medications Medication Instructions Recorded Confirmed Type methylphenidate HCl 10 mg PO TID PRN 05/14/14 12/24/18 History Prilosec OTC 20 mg PO DAILY 12/24/18 12/24/18 History famotidine [Pepcid] 20 mg PO HS 12/24/18 12/24/18 History lorazepam 0.5 mg PO PRN 12/24/18 History promethazine [Phenergan] 50 mg [place] Q6H PRN 12/24/18 12/24/18 History Allergies Allergy/AdvReac Type Severity Reaction Status Date / Time Penicillins Allergy Unknown Unverified 12/24/18 16:52 Exam Const General: cooperative, comfortable and no acute distress [facility] Head: normal to inspection Eyes General: appearance normal, both eyes and all related structures Neck Lymphatic: other Other: radiation to neck this am. Erythemic, no swallowing difficulty Chest Chest: normal inspection of the chest Resp Effort & Inspection: normal respiratory effort Cardio Jugular venous pressure: no JVD Rhythm: regular rhythm Heart Sounds: S1 normal and S2 normal GI Palpation: soft and no hepatosplenomegaly Auscultation: hypoactive bowel sounds Skin General skin exam: other Other: erythemia to radiation site Neuro General: alert, awake and oriented x3 Extrem General: normal to inspection Right upper extremity: normal to inspection Left upper extremity: normal to inspection Right lower extremity: normal to inspection Left lower extremity: normal to inspection
[2019-01-16 16:34] VITALS: BP 123/83; PULSE 83; RESP 19; TEMP 37.7; O2SAT 99
--- NOTE | 2019-01-16 16:41 | HPE_ITS ---
Date of service: 01/16/19 Time of Service: 16:22 Assessment and Plan (1) Hypokalemia: Start date: 01/16/19 Start time: 16:35 Current visit: No Status: Acute Potassium level 3.3 replete with 40 k now and 30 six hours after for K 4.0. Recheck level in am and monitor, her magnesium level was also low at 1.4 she received 2 gms at [facility] and another 4 grams have been ordered to achieve mag level 2.0 with PO mag ox daily starting tomorrow. (2) GERD (gastroesophageal reflux disease): Start date: 01/16/19 Start time: 16:36 Current visit: No Status: Chronic Present on admission, protonix IV (3) Tonsil cancer: Start date: 01/16/19 Start time: 16:36 Current visit: No Status: Acute 58-year-old lady with recent diagnosis of left tonsillar cancer (non- smoker/HPV associated T2 N1 M0) which she noticed in late 2017 with diagnosis and treatment with local ENT and now [facility] oncology treating since November 2018 status post prophylactic right tonsillectomy and G- tube placement with daily radiation therapy, her last round of radiation was 10 am this morning. (4) Nausea & vomiting: Start date: 01/16/19 Start time: 16:37 Current visit: No Status: Acute Vomiting onset Wednesday with daily IV infusion through port., Last episode of vomiting was prior to 10 am radiation she did try a phenergan suppository at 6 am, and PEG tube feeding she has not vomited since prior to radiation. Phenergan 25 mg q 6 IV with zofran q 4 hours IV. NS at 150, mucus membranes moist, lips dry, continue to monitor hydration status and labs. (5) Dehydration, moderate: Start date: 01/16/19 Start time: 16:39 Current visit: No Status: Acute See above, in setting of chemo/radiation, continue to monitor. 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 Wednesday she had onset of severe nausea and vomiting . She went to the cancer center this morning for her last radiation treatment and told them she had been nauseated with vomiting since wednesday they wanted to finish the last round of radiation then called the hospitalist service at [facility] for admission for dehydration n/v. After her last observation stay the [facility] infused her daily with fluids to avoid dehydration, however it was not apparently working at this time and felt she needed more fluid then could be provided. We have admitted her to M/S observation for hydration and antiemetics of zofran and phenergan which she seemed to respond well to last time. Her potassium and magnesium will be repleted and monitored; she will receive IVF at 150 and prn tube feeding per her home regimen. She denies chest pain, diarrhea, nausea at this time, vomiting at this time and shortness of breath. Review of Systems Review of Systems All systems reviewed & are unremarkable except as noted in HPI and below ENT Reports as per HPI Gastrointestinal Reports nausea and Reports vomiting [facility] Medical History Idiopathic hypersomnolence (Acute) Tonsil cancer (Acute) GERD (gastroesophageal reflux disease) (Chronic) Surgical History S/P cholecystectomy (Resolved) S/P tonsillectomy (Resolved) Social History Smoking/Tobacco Use Status: Never Alcohol Intake: never Drug use: Never Do you feel safe at home: Yes Do you feel safe in your relationship?: Yes Meds Home Medications Medication Instructions Recorded Confirmed Type methylphenidate HCl 10 mg PO TID PRN 05/14/14 12/24/18 History Prilosec OTC 20 mg PO DAILY 12/24/18 12/24/18 History famotidine [Pepcid] 20 mg PO HS 12/24/18 12/24/18 History lorazepam 0.5 mg PO PRN 12/24/18 History promethazine [Phenergan] 50 mg [place] Q6H PRN 12/24/18 12/24/18 History Allergies Allergy/AdvReac Type Severity Reaction Status Date / Time Penicillins Allergy Unknown Unverified 12/24/18 16:52 Exam Const General: cooperative, comfortable and no acute distress [facility] Head: normal to inspection Eyes General: appearance normal, both eyes and all related structures Neck Lymphatic: other Other: radiation to neck this am. Erythemic, no swallowing difficulty Chest Chest: normal inspection of the chest Resp Effort & Inspection: normal respiratory effort Cardio Jugular venous pressure: no JVD Rhythm: regular rhythm Heart Sounds: S1 normal and S2 normal GI Palpation: soft and no hepatosplenomegaly Auscultation: hypoactive bowel sounds Skin General skin exam: other Other: erythemia to radiation site Neuro General: alert, awake and oriented x3 Extrem General: normal to inspection Right upper extremity: normal to inspection Left upper extremity: normal to inspection Right lower extremity: normal to inspection Left lower extremity: normal to inspection
[2019-01-16] MEDS: Potassium Chloride 20 MEQ TABCR 40 MEQ PO (16:46)
[2019-01-16] MEDS: MAGNESIUM SULFATE 4 GM/100 ML BAG IVPB (17:04)
[2019-01-16] MEDS: Heparin 5,000 UNITS/ML VIAL 5000 UNITS SC (18:55)
[2019-01-16 20:16] VITALS: BP 110/77; PULSE 76; RESP 18; TEMP 36.4; O2SAT 97
[2019-01-16] MEDS: Ondansetron 4 MG/2 ML VIAL IVP (21:03)
[2019-01-16] MEDS: POTASSIUM CHLORIDE 20 MEQ, POTASSIUM CHLORIDE 10 MEQ 30 MEQ PO (22:02)
[2019-01-17] VITALS (10 sets, daily range): BP systolic 102–158; BP diastolic 67–96; PULSE 67–88; RESP 12–19; TEMP 36.4–37.3; O2SAT 97–100
[2019-01-17] MEDS: Heparin 5,000 UNITS/ML VIAL 5000 UNITS SC ×3 (02:03→17:20)
[2019-01-17] MEDS: Ondansetron 4 MG/2 ML VIAL IVP ×2 (02:18→08:33)
[2019-01-17] MEDS: Normal Saline 1,000 ML 150 ML IV ×2 (04:15→12:02)
[2019-01-17 07:41] LABS: Abs Immature Grans 0.01 k/cumm (0.0-0.09); Absolute Lymphocyte Count 0.48 k/cumm (1.2-3.4); Absolute Monocyte Count 0.18 k/cumm (0.11-0.7); Absolute Neutrophil Count 2.13 k/cumm (1.2-6.7); HCT 24.5 % (36.0-46.0); HGB 8.2 g/dL (12.0-15.5); Immature Grans % 0.4; Lymphocytes % 17.1; Mean Corp. HGB Concentration 33.5 g/dL (32.0-36.0); Mean Corpuscular Hemoglobin 29.9 pg (27.0-33.0); Mean Corpuscular Volume 89.4 fL (80-95); Mean Platelet Volume 8.8 fL (8.0-11.0); Monocytes % 6.4; Neutrophils % 76.1; Platelet Count 170 x1000/uL (130-400); RBC 2.74 m/cumm (4.00-5.20); RBC Distribution Width 14.7 % (11.7-14.6)
--- NOTE | 2019-01-17 07:49 | PDOC.CMIN ---
- If Service Date Differs Date of service: 01/17/19 Time of Service: 07:50 Care Management Initial Assess REASON FOR HOSPITALIZATION:: Hypokalemia. Nausea, vomitting, dehydration PAST MEDICAL HISTORY/PAST SURGICAL HISTORY:: Medical History: Idiopathic hypersomnolence, Tonsil cancer. GERD (gastroesophageal reflux disease). Surgical History: S/P cholecystectomy. S/P tonsillectomy PREVIOUS FUNCTIONAL STATUS/SOCIAL/FAMILY SUPPORTS:: Kalyani lives in a single family home in [place]. The home is on 2 levels with the bedrooms being upstairs. Kalyani has strong family support, with her daughter and son in law living across the street and her son next door. 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 She has been out of work for the past few months while undergoing chemotherapy and radiation therapy for tonsillar cancer, but plans to return in March. CURRENT FUNCTIONAL STATUS:: Kalyani is a pleasant, friendly lady who was sitting up in bed during CM visit. She was open to answering questions and was engaged in the conversation. Kalyani says she is feeling much better than she did yesterday. The nausea and vomitting have subsided and she is being rehydrated with IV fluids. Kalyani was smiling broadly as she announced that all of her cancer treatments are over. She completed radiation therapy yesterday and chemotherapy last week. She states she is looking forward to feeling better and resuming her past activities. ADVANCE DIRECTIVES:: None on file Has patient been provided with information about the portal?: No Did the patient sign up for the portal?: No CODE STATUS:: Full Code INSURANCE COVERAGE / FINANCIAL ISSUES:: BC/BS CURRENT HOME/COMMUNITY SERVICES/EQUIPMENT:: None currently PRIMARY CARE PHYSICIAN:: Josue Vela POTENTIAL DISCHARGE NEEDS:: None identified PATIENT/FAMILY EDUCATION NEEDS:: Discharge plan, limitations, follow up plan of [facility], [facility] ANTICIPATED BARRIERS TO DISCHARGE:: None TRANSPORTATION:: Via private automobile with daughter when ready for discharge. PLAN:: Kalyani continues to receive IV fluid and parenteral anti-emetics. She will likely be discharged home tomorrow with no services. CM will continue to provide support to patient, family, care team and discharge plan of care.
--- NOTE | 2019-01-17 08:00 | INITIAL_ITS ---
- If Service Date Differs Date of service: 01/17/19 Time of Service: 07:50 Care Management Initial Assess REASON FOR HOSPITALIZATION:: Hypokalemia. Nausea, vomitting, dehydration PAST MEDICAL HISTORY/PAST SURGICAL HISTORY:: Medical History: Idiopathic hype rsomnolence, Tonsil cancer. GERD (gastroesophageal reflux disease). Surgical History: S/P cholecystectomy. S/P tonsillectomy PREVIOUS FUNCTIONAL STATUS/SOCIAL/FAMILY SUPPORTS:: Kalyani lives in a single family home in [place]. The home is on 2 levels with the bedrooms being upstairs. Kalyani has strong family support, with her daughter and son in law living across the street and her son next door. 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 She has been out of work for the past few months while undergoing chemotherapy and radiation therapy for tonsillar cancer, but plans to return in March. CURRENT FUNCTIONAL STATUS:: Kalyani is a pleasant, friendly lady who was sitting up in bed during CM visit. She was open to answering questions and was engaged in the conversation. Kalyani says she is feeling much better than she did yesterday. The nausea and vomitting have subsided and she is being rehydrated with IV fluids. Kalyani was smiling broadly as she announced that all of her cancer treatments are over. She completed radiation therapy yesterday and chemotherapy last week. She states she is looking forward to feeling better and resuming her past activities. ADVANCE DIRECTIVES:: None on file Has patient been provided with information about the portal?: No Did the patient sign up for the portal?: No CODE STATUS:: Full Code INSURANCE COVERAGE / FINANCIAL ISSUES:: BC/BS CURRENT HOME/COMMUNITY SERVICES/EQUIPMENT:: None currently PRIMARY CARE PHYSICIAN:: Josue Vela POTENTIAL DISCHARGE NEEDS:: None identified PATIENT/FAMILY EDUCATION NEEDS:: Discharge plan, limitations, follow up plan of [facility], [facility] Three ANTICIPATED BARRIERS TO DISCHARGE:: None TRANSPORTATION:: Via private automobile with daughter when ready for discharge. PLAN:: Kalyani continues to receive IV fluid and parenteral anti-emetics. She will likely be discharged home tomorrow with no services. CM will continue to provide support to patient, family, care team and discharge plan of care.
[2019-01-17 08:08] LABS: Anion Gap 8.3 mmol/L (3-11); BUN 18 mg/dL (7-18); CO2 24.7 mmol/L (21.0-32.0); CREATININE 0.87 mg/dL (0.55-1.02); Chloride 102 mmol/L (98-107); Glucose 92 mg/dL (70-100); Magnesium 2.2 mg/dL (1.8-2.4); Potassium 4.3 mmol/L (3.5-5.1); Sodium 135 mmol/L (136-145)
[2019-01-17] MEDS: Pantoprazole 40 MG VIAL IVP (08:32)
[2019-01-17] MEDS: Normal Saline Flush 10 ML SYR (08:33)
[2019-01-17 08:36] LABS: Diff Comment Diff Reviewed; Hypochromasia 1+
[2019-01-17] MEDS: Magnesium Oxide 400 MG TAB PO (09:37)
--- NOTE | 2019-01-17 15:04 | CHAPLAIN ---
Kalyani was resting in bed. She told me she is feeling better than yesterday, and then went on to tell me about her cancer treatments being over. She had her last radiation treatment yesterday. Her radiation and chemo took seven weeks, and she is feeling relieved, she said. Family members have been in this morning and will be back to visit.
--- NOTE | 2019-01-17 15:35 | W.PM.PROGNOT ---
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 Competed treatment yesterday. Followed by [facility] oncology. With G-tube in place for nutrition. Follow up with Oncology at [facility] as scheduled. (2) Nausea & vomiting: Current visit: No Status: Acute In the setting of dehydration related to chemo and radiation. Continues to report nausea today. Continue IV fluids and antiemetics. (3) Hypokalemia: Current visit: No Status: Acute Improved with potassium supplementation. Continue to follow electrolytes. (4) GERD (gastroesophageal reflux disease): Current visit: No Status: Chronic Continue PPI. (5) DVT prophylaxis: Current visit: No Status: Acute Subcutaneous heparin. This case was discussed with Dr. Weaver who is in agreement. Subjective Interval history since last seen: Ms Bermeo reports feeling fatigued today. She continues to have nausea without vomiting. She reports feeling better than she did when she presented to the hospital. She receives nutrition via g-tube. She denies shortness of breath, coughing, wheezing, chest pain/pressure, palpitations, vomiting, diarrhea. She is pleased that she is done with radiation. She has radiation weinberg to her left neck, she reports the weinberg are sore. Exam Narrative Exam Narrative: General: awake, alert and oriented. Appears fatigued, in NAD. HEENT: normocephalic, atraumatic, pupils equal and round, mucous membranes moist. Neck: supple, no JVD. Respiratory: respirations even and unlabored, lung sounds clear to auscultation throughout. Cardiovascular: heart has regular rate and rhythm, no murmur appreciated. GI: abdomen soft, nontender, nondistended, normoactive bowel sounds x4 quadrants. Extremities: BLEs without clubbing, cyanosis or edema. Pedal pulses palpable. Objective Objective Clinical Data: Abnormal lab results 01/17/19 01/17/19 Range/Units 07:25 07:25 WBC 2.80 L (4.4-10.8) k/cumm RBC 2.74 L (4.00-5.20) m/cumm Hgb 8.2 L (12.0-15.5) g/dL Hct 24.5 L (36.0-46.0) % RDW 14.7 H (11.7-14.6) % Absolute Lymphocytes 0.48 L (1.2-3.4) k/cumm Sodium 135 L (136-145) mmol/L Calcium 8.0 L (8.5-10.1) mg/dL Vital Signs Temperature 36.4 C L 01/17/19 15:33 Temperature Source Tympanic 01/17/19 15:33 Pulse 78 01/17/19 15:33 Pulse Rhythm Regular 01/17/19 11:14 Respiratory Rate 18 01/17/19 15:33 Respiratory Effort 01/17/19 11:14 Respiratory Depth Normal 01/17/19 11:14 Respiratory Pattern Normal 01/17/19 11:14 Blood Pressure 122/76 01/17/19 15:33 Pulse Oximetry 98 01/17/19 15:33 Oxygen Delivery Method Room Air 01/17/19 15:33 Oxygen Flow Rate 0 01/17/19 15:33 Pain Level 3 01/16/19 16:00 Intake & Output 01/16/19 01/17/19 01/17/19 23:59 11:59 23:59 Intake Total 855 / 855 2333.5 / 2583.5 250 / 2583.5 Output Total 450 / 450 0 / 450 Balance 855 / 855 1883.5 / 2133.5 250 / 2133.5 Weight 101.7 kg Intake: IV 855 / 855 1983.5 / 1983.5 Oral 350 / 350 Intake, Tube Feeding Amount 250 / 250 Output: Urine 350 / 350 Emesis 100 / 100 Output, Residual 0 / 0 Other: Urine Color Yellow Yellow Urine Appearance Clear Clear Urine Odor Normal Comment Urine not measured, patient flushed in the toiilet Emesis Description Retching Clear/Water Voiding Methods Toilet Toilet Laboratory Results WBC 2.80 k/cumm (4.4-10.8) L 01/17/19 07:25 RBC 2.74 m/cumm (4.00-5.20) L 01/17/19 07:25 Hgb 8.2 g/dL (12.0-15.5) L 01/17/19 07:25 Hct 24.5 % (36.0-46.0) L 01/17/19 07:25 MCV 89.4 fL (80-95) 01/17/19 07:25 MCH 29.9 pg (27.0-33.0) 01/17/19 07:25 MCHC 33.5 g/dL (32.0-36.0) 01/17/19 07:25 RDW 14.7 % (11.7-14.6) H 01/17/19 07:25 Plt Count 170 x1000/uL (130-400) D 01/17/19 07:25 MPV 8.8 fL (8.0-11.0) 01/17/19 07:25 Immature Gran % 0.4 01/17/19 07:25 Neutrophils % 76.1 01/17/19 07:25 Lymphocytes % 17.1 01/17/19 07:25 Monocytes % 6.4 01/17/19 07:25 Eosinophils % 0.0 01/17/19 07:25 Basophils % 0.0 01/17/19 07:25 Absolute Neutrophils 2.13 k/cumm (1.2-6.7) 01/17/19 07:25 Absolute Lymphocytes 0.48 k/cumm (1.2-3.4) L 01/17/19 07:25 Absolute Monocytes 0.18 k/cumm (0.11-0.7) 01/17/19 07:25 Absolute Eosinophils 0.00 k/cumm (0.0-0.7) 01/17/19 07:25 Absolute Basophils 0.00 k/cumm (0.0-0.2) 01/17/19 07:25 Differential Comment Diff reviewed 01/17/19 07:25 RBC Morphology See below 01/17/19 07:25 Hypochromasia 1+ 01/17/19 07:25 Sodium 135 mmol/L (136-145) L 01/17/19 07:25 Potassium 4.3 mmol/L (3.5-5.1) D 01/17/19 07:25 Chloride 102 mmol/L (98-107) 01/17/19 07:25 Carbon Dioxide 24.7 mmol/L (21.0-32.0) 01/17/19 07:25 Anion Gap 8.3 mmol/L (3-11) 01/17/19 07:25 BUN 18 mg/dL (7-18) 01/17/19 07:25 Creatinine 0.87 mg/dL (0.55-1.02) 01/17/19 07:25 Estimated GFR/1.73 m2 >= 60.00 (mL/min/1.73m2) 01/17/19 07:25 Glucose 92 mg/dL (70-100) 01/17/19 07:25 Calcium 8.0 mg/dL (8.5-10.1) L 01/17/19 07:25 Magnesium 2.2 mg/dL (1.8-2.4) 01/17/19 07:25
--- NOTE | 2019-01-17 16:45 | PHARADMIT ---
Admission Pharmacy Clinical Review dehydration, nausea & vomiting Code Status Full Code Current Weight 101.7 kg Renally Cleared and Narrow Therapeutic Index Meds Crcl ~86.2 mL/min using adjusted body weight current meds okay QTc Value / Action Taken n/a BP Control, Fever BP 122/76 afebrile Electrolytes reviewed Na 135 DVT Prophylaxis heparin Opiate Usage / Scheduled Bowel Regimen Ordered no/no Plt/SCr for Heparin / Enoxaparin plt 170 SCr 0.87 INR for Warfarin n/a H/H stable, WBC/Bands h/h 8.2/24.5 wbc 2.80 Antibiotic appropriateness none Cultures and Sensitivities n/a Surgical ABX d/c within 24 hr n/a DM control / Insulin Dosing BG 92 none Heart Failure (Check EF%) (JH's, B-Block, Diuretics) none IV to PO Switch n/a Home Meds Reviewed -anticholinergic meds may increase the ulcerogenic effects of potassium -multiple TECHNICAL REPORT WRITER depressants- oxycodone, lorazepam, prochlorperazine, promethazine Home Meds Not Ordered dexamethasone, emollient, famotidine, guaifenesin, ibuprofen, lidocaine, lorazepam, aquaphor, omeprazole, oxycodone, potassium chloride, prochlorperazine, silver sulfadiazine Comments
[2019-01-17] MEDS: Normal Saline 1,000 ML 100 ML IV (20:23)
[2019-01-18] MEDS: Ondansetron 4 MG/2 ML VIAL IVP ×2 (01:12→05:23)
[2019-01-18] MEDS: Heparin 5,000 UNITS/ML VIAL 5000 UNITS SC ×2 (01:12→09:29)
[2019-01-18 01:24] VITALS: O2SAT 98
[2019-01-18 03:30] VITALS: BP 115/81; PULSE 75; RESP 18; TEMP 37.5; O2SAT 97
[2019-01-18] MEDS: Normal Saline 1,000 ML 100 ML IV (05:23)
[2019-01-18 07:20] VITALS: BP 118/82; PULSE 74; RESP 16; TEMP 37.2; O2SAT 98
[2019-01-18 07:23] LABS: Absolute Monocyte Count 0.15 k/cumm (0.11-0.7); Absolute Neutrophil Count 2.01 k/cumm (1.2-6.7); HCT 22.9 % (36.0-46.0); HGB 7.6 g/dL (12.0-15.5); Lymphocytes % 12.2; Mean Corp. HGB Concentration 33.2 g/dL (32.0-36.0); Mean Corpuscular Hemoglobin 30.2 pg (27.0-33.0); Mean Corpuscular Volume 90.9 fL (80-95); Mean Platelet Volume 9.7 fL (8.0-11.0); Monocytes % 6.1; Neutrophils % 81.7; Platelet Count 145 x1000/uL (130-400); RBC 2.52 m/cumm (4.00-5.20); White Blood Cell Count 2.46 k/cumm (4.4-10.8)
[2019-01-18 07:34] LABS: Anion Gap 9.8 mmol/L (3-11); BUN 12 mg/dL (7-18); CO2 25.2 mmol/L (21.0-32.0); CREATININE 0.87 mg/dL (0.55-1.02); Calcium 7.9 mg/dL (8.5-10.1); Chloride 101 mmol/L (98-107); Glucose 90 mg/dL (70-100); Magnesium 1.4 mg/dL (1.8-2.4); Potassium 3.8 mmol/L (3.5-5.1); Sodium 136 mmol/L (136-145)
[2019-01-18] MEDS: MAGNESIUM SULFATE 2 GM/50 ML BAG IVPB (08:30)
[2019-01-18] MEDS: Normal Saline Flush 10 ML SYR IVP ×2 (08:31→12:17)
[2019-01-18] MEDS: Pantoprazole 40 MG VIAL IVP (08:31)
[2019-01-18] MEDS: Magnesium Oxide 400 MG TAB PO (09:30)
[2019-01-18] MEDS: Potassium Chloride 20 MEQ TABCR PO (09:30)
[2019-01-18 09:45] VITALS: O2SAT 97
[2019-01-18] MEDS: Acetaminophen 325 MG TAB 650 MG PO (09:45)
--- NOTE | 2019-01-18 11:06 | W.PM.DS.N ---
Date of service: 01/18/19 Time of Service: 11:06 DS: Diagnosis Discharge Diagnosis (1) Tonsil cancer: Status: Acute (2) Nausea & vomiting: Status: Acute (3) Hypokalemia: Status: Acute (4) GERD (gastroesophageal reflux disease): Status: Chronic Discharge Plan Disposition Patient Disposition: HOME Condition: Improving Discharge Details Reason For Visit: DEHYDRATION, NAUSEA & VOMITING Admit Date/Time: 01/16/19 16:11 Admit Provider: Emanuel Weaver Attending Provider: Emanuel Weaver Primary Care Provider: Josue Vela Hospital Course Hospital Course: Kalyani Bermeo is a very pleasant 58 year old female with a 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 Two days prior to her admission, she had onset of severe nausea and vomiting. On the day of her presentation, she was seen at [facility], received her last radiation then was referred to the hospitalist service for admission. She was admitted to the med/surg floor for IV fluids and antiemetics. Her potassium and magnesium were found to be low. She received electrolyte supplementation. She received IV fluids for 2 days. On the day of discharge, she is no longer nauseated, she feels better overall and she is eager for discharge home. She has follow up in place with [facility] on 01/19/19, the day after discharge. She will have follow up labs drawn at that time to reassess her sodium, potassium, magnesium and anemia. She states she has antiemetics at home and does not need a new prescription. Home Meds and New Rx's Prescriptions: Continued methylphenidate HCl 10 MG tablet 10 mg PO TID PRNRF: 0 promethazine [Phenergan] 50 mg Suppository 12.5 mg IN Q6H PRNRF: 0 famotidine [Pepcid] 20 mg Tablet 20 mg PO HS RF: 0 lorazepam 0.5 mg Tablet 0.5 mg PO Q6H PRN PRNRF: 0 Prilosec OTC 20 mg Tablet,Delayed Release (Dr/Ec) 20 mg PO DAILY RF: 0 acetaminophen 325 mg Tablet 650 mg Feeding Tube Q4H PRN PRN (Reason: Pain) RF: 0 guaifenesin 100 mg/5 mL Liquid 200 mg Feeding Tube Q4H PRN PRN (Reason: Cough) RF: 0 dexamethasone 4 mg Tablet 4 mg Feeding Tube AC RF: 0 lidocaine HCl 2 % Solution 1 % RF: 0 ibuprofen 600 mg Tablet 600 mg Feeding Tube Q6H PRN PRN (Reason: Pain) RF: 0 emollient Cream 1 applic topical BID RF: 0 silver sulfadiazine 1 % Cream 1 applic topical DAILY RF: 0 ondansetron HCl [Zofran] 8 mg Tablet 8 mg Feeding Tube Q8H PRN PRN (Reason: Nausea) RF: 0 promethazine 12.5 mg Tablet 12.5 mg Feeding Tube Q4H PRN PRN (Reason: Nausea) RF: 0 oxycodone 5 mg/5 mL Solution 5 mg Feeding Tube Q4H PRN PRN (Reason: Pain) RF: 0 Aquaphor Ointment 1 applic topical RF: 0 prochlorperazine maleate [Compazine] 10 mg Tablet 10 mg Feeding Tube Q6H PRN PRN (Reason: Nausea) RF: 0 potassium chloride 20 mEq/15 mL Liquid 20 meq Feeding Tube BID RF: 0 Discharge Instructions Instructions: Hypokalemia (DC), Hypomagnesemia (DC) Additional Instructions: Follow up with Oncology as scheduled. Follow up blood work tomorrow, we will recheck your magnesium and potassium at that time. Follow up with your PCP as scheduled. Take antiemetics as needed at home. Take care! Stand Alone Forms: Nursing Discharge Form Referrals: Len Neely [ [facility] STAFF PHYSICIAN] - 01/24/19 9:20 am Activity:: Activity as Tolerated Equipment/Supplies:: No Equipment Needed Diet:: Per usual feeding tube schedule Discharge Orders Discharge Orders: Discharge Order (Routine); Ordered 01/18/19 Ordered By: Ella Langston Other Ambulatory Orders: Basic Metabolic Panel (Routine) Location: Determined by Patient Ordered By: Ella Langston Complete Blood Count w/Diff (Routine) Timeframe: 1 Day Location: Determined by Patient Ordered By: Ella Langston Magnesium (Routine) Timeframe: 1 Day Location: Determined by Patient Ordered By: Ella Langston Exam Narrative Exam Narrative: General: awake, alert and oriented. Sitting up in bed, in NAD. HEENT: normocephalic, atraumatic, pupils equal and round, mucous membranes moist. Neck: supple, no JVD. Radiation burn to left neck. Respiratory: respirations even and unlabored GI: abdomen soft, nontender, nondistended Extremities: BLEs without clubbing, cyanosis or edema. Pedal pulses palpable. DS: Data Vitals/I&O Vitals and I&O: Vital Signs Temperature 37.2 C 01/18/19 07:20 Temperature Source Tympanic 01/18/19 07:20 Pulse 74 01/18/19 07:20 Pulse Rhythm Regular 01/18/19 07:22 Respiratory Rate 16 01/18/19 07:20 Respiratory Effort 01/18/19 07:22 Respiratory Depth Normal 01/18/19 07:22 Respiratory Pattern Normal 01/18/19 07:22 Blood Pressure 118/82 01/18/19 07:20 Pulse Oximetry 97 01/18/19 09:45 Oxygen Delivery Method Room Air 01/18/19 09:45 Oxygen Flow Rate 0 01/18/19 09:45 Pain Level 4 01/18/19 09:45 Intake & Output 01/17/19 01/17/19 01/18/19 11:59 23:59 11:59 Intake Total 2384.5 / 3935.5 1551 / 3935.5 1052 / 1052 Output Total 450 / 450 0 / 450 Balance 1934.5 / 3485.5 1551 / 3485.5 1052 / 1052 Intake: IV 2034.5 / 3085.5 1051 / 3085.5 1052 / 1052 Oral 350 / 350 Intake, Tube Feeding Amount 500 / 500 Output: Urine 350 / 350 Emesis 100 / 100 Output, Residual 0 / 0 Other: Urine Color Yellow Pale Yellow Urine Appearance Clear Clear Clear Urine Odor Normal None Comment pt voids independently in the bathroom Stool Size Moderate Stool Characteristics Soft Formed Emesis Description Retching None Clear/Water Clear/Water Voiding Methods Toilet Labs on day of discharge: Labs from last 24 hours 01/18/19 01/18/19 06:30 06:30 WBC 2.46 L RBC 2.52 L Hgb 7.6 L Hct 22.9 L MCV 90.9 MCH 30.2 MCHC 33.2 RDW 15.0 H Plt Count 145 MPV 9.7 Immature Gran % 0.0 Neutrophils % 81.7 Lymphocytes % 12.2 Monocytes % 6.1 Eosinophils % 0.0 Basophils % 0.0 Absolute Neutrophils 2.01 Absolute Lymphocytes 0.30 L Absolute Monocytes 0.15 Absolute Eosinophils 0.00 Absolute Basophils 0.00 Sodium 136 Potassium 3.8 Chloride 101 Carbon Dioxide 25.2 Anion Gap 9.8 BUN 12 D Creatinine 0.87 Estimated GFR/1.73 m2 >= 60.00 Glucose 90 Calcium 7.9 L Magnesium 1.4 L [facility] Medical History Idiopathic hypersomnolence (Acute) Tonsil cancer (Acute) GERD (gastroesophageal reflux disease) (Chronic) Surgical History S/P cholecystectomy (Resolved) S/P tonsillectomy (Resolved) Social History Smoking/Tobacco Use Status: Never Alcohol Intake: never Drug use: Never Do you feel safe at home: Yes Do you feel safe in your relationship?: Yes
--- NOTE | 2019-01-18 11:10 | DSE_ITS ---
Date of service: 01/18/19 Time of Service: 11:06 DS: Diagnosis Discharge Diagnosis (1) Tonsil cancer: Status: Acute (2) Nausea & vomiting: Status: Acute (3) Hypokalemia: Status: Acute (4) GERD (gastroesophageal reflux disease): Status: Chronic Discharge Plan Disposition Patient Disposition: HOME Condition: Improving Discharge Details Reason For Visit: DEHYDRATION, NAUSEA & VOMITING Admit Date/Time: 01/16/19 16:11 Admit Provider: Emanuel Weaver Attending Provider: Emanuel Weaver Primary Care Provider: Josue Vela Hospital Course Hospital Course: Kalyani Bermeo is a very pleasant 58 year old female with a recent diagnosis of 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 Two days prior to her admission, she had onset of severe nausea and vomiting. On the day of her presentation, she was seen at [facility], received her last radiation then was referred to the hospitalist service for admission. She was admitted to the med/surg floor for IV fluids and antiemetics. Her potassium and magnesium were found to be low. She received electrolyte supplementation. She received IV fluids for 2 days. On the day of discharge, she is no longer nauseated, she feels better overall and she is eager for discharge home. She has follow up in place with [facility] on 01/19/19, the day after discharge. She will have follow up labs drawn at that time to reassess her sodium, potassium, magnesium and anemia. She states she has antiemetics at home and does not need a new prescription. Home Meds and New Rx's Prescriptions: Continued methylphenidate HCl 10 MG tablet 10 mg PO TID PRNRF: 0 promethazine [Phenergan] 50 mg Suppository 12.5 mg UT Q6H PRNRF: 0 famotidine [Pepcid] 20 mg Tablet 20 mg PO HS RF: 0 lorazepam 0.5 mg Tablet 0.5 mg PO Q6H PRN PRNRF: 0 Prilosec OTC 20 mg Tablet,Delayed Release (Dr/Ec) 20 mg PO DAILY RF: 0 acetaminophen 325 mg Tablet 650 mg Feeding Tube Q4H PRN PRN (Reason: Pain) RF: 0 guaifenesin 100 mg/5 mL Liquid 200 mg Feeding Tube Q4H PRN PRN (Reason: Cough) RF: 0 dexamethasone 4 mg Tablet 4 mg Feeding Tube AC RF: 0 lidocaine HCl 2 % Solution 1 % RF: 0 ibuprofen 600 mg Tablet 600 mg Feeding Tube Q6H PRN PRN (Reason: Pain) RF: 0 emollient Cream 1 applic topical BID RF: 0 silver sulfadiazine 1 % Cream 1 applic topical DAILY RF: 0 ondansetron HCl [Zofran] 8 mg Tablet 8 mg Feeding Tube Q8H PRN PRN (Reason: Nausea) RF: 0 promethazine 12.5 mg Tablet 12.5 mg Feeding Tube Q4H PRN PRN (Reason: Nausea) RF: 0 oxycodone 5 mg/5 mL Solution 5 mg Feeding Tube Q4H PRN PRN (Reason: Pain) RF: 0 Aquaphor Ointment 1 applic topical RF: 0 prochlorperazine maleate [Compazine] 10 mg Tablet 10 mg Feeding Tube Q6H PRN PRN (Reason: Nausea) RF: 0 potassium chloride 20 mEq/15 mL Liquid 20 meq Feeding Tube BID RF: 0 Discharge Instructions Instructions: Hypokalemia (DC), Hypomagnesemia (DC) Additional Instructions: Follow up with Oncology as scheduled. Follow up blood work tomorrow, we will recheck your magnesium and potassium at that time. Follow up with your PCP as scheduled. Take antiemetics as needed at home. Take care! Stand Alone Forms: Nursing Discharge Form Referrals: Len Neely [ [facility] STAFF PHYSICIAN] - 01/24/19 9:20 am Activity:: Activity as Tolerated Equipment/Supplies:: No Equipment Needed Diet:: Per usual feeding tube schedule Discharge Orders Discharge Orders: Discharge Order (Routine); Ordered 01/18/19 Ordered By: Ella Langston Other Ambulatory Orders: Basic Metabolic Panel (Routine) Location: Determined by Patient Ordered By: Ella Langston Complete Blood Count w/Diff (Routine) Timeframe: 1 Day Location: Determined by Patient Ordered By: Ella Langston Magnesium (Routine) Timeframe: 1 Day Location: Determined by Patient Ordered By: Ella Langston Exam Narrative Exam Narrative: General: awake, alert and oriented. Sitting up in bed, in NAD. HEENT: normocephalic, atraumatic, pupils equal and round, mucous membranes moist. Neck: supple, no JVD. Radiation burn to left neck. Respiratory: respirations even and unlabored GI: abdomen soft, nontender, nondistended Extremities: BLEs without clubbing, cyanosis or edema. Pedal pulses palpable. DS: Data Vitals/I&O Vitals and I&O: Vital Signs Temperature 37.2 C 01/18/19 07:20 Temperature Source Tympanic 01/18/19 07:20 Pulse 74 01/18/19 07:20 Pulse Rhythm Regular 01/18/19 07:22 Respiratory Rate 16 01/18/19 07:20 Respiratory Effort 01/18/19 07:22 Respiratory Depth Normal 01/18/19 07:22 Respiratory Pattern Normal 01/18/19 07:22 Blood Pressure 118/82 01/18/19 07:20 Pulse Oximetry 97 01/18/19 09:45 Oxygen Delivery Method Room Air 01/18/19 09:45 Oxygen Flow Rate 0 01/18/19 09:45 Pain Level 4 01/18/19 09:45 Intake & Output 01/17/19 01/17/19 01/18/19 11:59 23:59 11:59 Intake Total 2384.5 / 3935.5 1551 / 3935.5 1052 / 1052 Output Total 450 / 450 0 / 450 Balance 1934.5 / 3485.5 1551 / 3485.5 1052 / 1052 Intake: IV 2034.5 / 3085.5 1051 / 3085.5 1052 / 1052 Oral 350 / 350 Intake, Tube Feeding Amount 500 / 500 Output: Urine 350 / 350 Emesis 100 / 100 Output, Residual 0 / 0 Other: Urine Color Yellow Pale Yellow Urine Appearance Clear Clear Clear Urine Odor Normal None Comment pt voids independently in the bathroom Stool Size Moderate Stool Characteristics Soft Formed Emesis Description Retching None Clear/Water Clear/Water Voiding Methods Toilet Labs on day of discharge: Labs from last 24 hours 01/18/19 01/18/19 06:30 06:30 WBC 2.46 L RBC 2.52 L Hgb 7.6 L Hct 22.9 L MCV 90.9 MCH 30.2 MCHC 33.2 RDW 15.0 H Plt Count 145 MPV 9.7 Immature Gran % 0.0 Neutrophils % 81.7 Lymphocytes % 12.2 Monocytes % 6.1 Eosinophils % 0.0 Basophils % 0.0 Absolute Neutrophils 2.01 Absolute Lymphocytes 0.30 L Absolute Monocytes 0.15 Absolute Eosinophils 0.00 Absolute Basophils 0.00 Sodium 136 Potassium 3.8 Chloride 101 Carbon Dioxide 25.2 Anion Gap 9.8 BUN 12 D Creatinine 0.87 Estimated GFR/1.73 m2 >= 60.00 Glucose 90 Calcium 7.9 L Magnesium 1.4 L [facility] Medical History Idiopathic hypersomnolence (Acute) Tonsil cancer (Acute) GERD (gastroesophageal reflux disease) (Chronic) Surgical History S/P cholecystectomy (Resolved) S/P tonsillectomy (Resolved) Social History Smoking/Tobacco Use Status: Never Alcohol Intake: never Drug use: Never Do you feel safe at home: Yes Do you feel safe in your relationship?: Yes
[2019-01-18] MEDS: Heparin 500 UNITS/5 ML SYRINGE IVP (12:17)
--- NOTE | 2019-01-18 15:26 | PDOC.CMDIS ---
- If Service Date Differs Date of service: 01/18/19 Time of Service: 15:26 LACE Index Scoring Tool - Questions: Length of Stay (in days): 2 Acuity (Admit via E.D.?): Yes Comorbidities: Any Tumor E.D. Visits: 2 - Answers: Total Score: 9 Risk of Readmission: Low Risk Care Management Discharge Reason for Hospitalization: Hypokalemia. Nausea, vomitting, dehydration Discharge Plan: Kalyani will be discharged home without services later this morning. She states she feels much better. She will be transported by her daughter in a private automobile.She will follow up with her PCP, Oncologist and discharge plan of care. Patient/Family Education Needs: Discharge plan, limitations, follow up plan of care, Ask Me Three
== END 2019-01-18 12:25 | disposition home or self-care (01) ==
PROVIDERS: Nurse Practitioner Family; Admitting Provider Internal Medicine; PCP Emergency Medicine; Visit Provider Internal Medicine
DX: E86.0 Dehydration (principal); R11.2 Nausea with vomiting, unspecified; E87.6 Hypokalemia; E83.42 Hypomagnesemia; C09.9 Malignant neoplasm of tonsil, unspecified; Z93.1 Gastrostomy status; Z92.3 Personal history of irradiation; K21.9 Gastro-esophageal reflux disease without esophagitis; Z92.21 Personal history of antineoplastic chemotherapy; Z45.2 Encounter for adjustment and management of vascular access device
CPT/HCPCS: 80048; 99223; 99232; 99239; 83735; 85025; 99217; 99225; G0378; J1644; J2405; J3475

== ENCOUNTER 2019-01-31 01:33 | Outpatient (RCR) | payer BC, SELFPAY ==
[2019-01-05] MEDS: Normal Saline Flush 10 ML SYR IVP (08:45)
[2019-01-05 09:24] LABS: Abs Immature Grans 0.01 k/cumm (0.0-0.09); Absolute Basophil Count 0.01 k/cumm (0.0-0.2); Absolute Eosinophil Count 0.02 k/cumm (0.0-0.7); Absolute Lymphocyte Count 0.51 k/cumm (1.2-3.4); Absolute Monocyte Count 0.29 k/cumm (0.11-0.7); Absolute Neutrophil Count 0.85 k/cumm (1.2-6.7); Basophils % 0.6; Eosinophils % 1.2; HGB 10.3 g/dL (12.0-15.5); Immature Grans % 0.6; Lymphocytes % 30.2; Mean Corp. HGB Concentration 33.2 g/dL (32.0-36.0); Mean Corpuscular Hemoglobin 29.3 pg (27.0-33.0); Mean Corpuscular Volume 88.1 fL (80-95); Monocytes % 17.2; Neutrophils % 50.2; Platelet Count 163 x1000/uL (130-400); RBC 3.52 m/cumm (4.00-5.20); RBC Distribution Width 13.9 % (11.7-14.6)
[2019-01-05 09:47] LABS: ALT 41 U/L (12-78); AST 16 U/L (15-37); Albumin 3.3 g/dL (3.4-5.0); Alkaline Phosphatase 82 U/L (46-116); Anion Gap 10.5 mmol/L (3-11); BUN 19 mg/dL (7-18); Bilirubin, Total 0.5 mg/dL (0.2-1.0); CO2 30.5 mmol/L (21.0-32.0); CREATININE 1.05 mg/dL (0.55-1.02); Calcium 8.7 mg/dL (8.5-10.1); Chloride 102 mmol/L (98-107); Estimated GFR 54.21 (mL/min/1.73m2); Glucose 144 mg/dL (70-100); Magnesium 1.9 mg/dL (1.8-2.4); Sodium 143 mmol/L (136-145); Total Protein 7.3 g/dL (6.4-8.2)
[2019-01-05 09:48] LABS: Potassium 2.2 mmol/L (3.5-5.1)
[2019-01-05 10:06] LABS: White Blood Cell Count 1.69 k/cumm (4.4-10.8)
[2019-01-05 10:11] LABS: Diff Comment Agrees w/ Instrument
[2019-01-09] MEDS: Normal Saline Flush 10 ML SYR IVP (08:47)
[2019-01-09] MEDS: Heparin 500 UNITS/5 ML SYRINGE IV (08:47)
[2019-01-09 09:00] LABS: Abs Immature Grans 0.03 k/cumm (0.0-0.09); Absolute Basophil Count 0.01 k/cumm (0.0-0.2); Absolute Eosinophil Count 0.04 k/cumm (0.0-0.7); Absolute Lymphocyte Count 0.67 k/cumm (1.2-3.4); Absolute Monocyte Count 0.24 k/cumm (0.11-0.7); Basophils % 0.2; Eosinophils % 0.9; HGB 9.8 g/dL (12.0-15.5); Immature Grans % 0.6; Lymphocytes % 14.3; Mean Corp. HGB Concentration 33.8 g/dL (32.0-36.0); Mean Corpuscular Hemoglobin 29.5 pg (27.0-33.0); Mean Corpuscular Volume 87.3 fL (80-95); Mean Platelet Volume 9.3 fL (8.0-11.0); Monocytes % 5.1; Neutrophils % 78.9; Platelet Count 204 x1000/uL (130-400); RBC 3.32 m/cumm (4.00-5.20); RBC Distribution Width 14.6 % (11.7-14.6); White Blood Cell Count 4.69 k/cumm (4.4-10.8)
[2019-01-09 09:18] LABS: ALT 31 U/L (12-78); AST 13 U/L (15-37); Alkaline Phosphatase 75 U/L (46-116); Anion Gap 10.1 mmol/L (3-11); BUN 14 mg/dL (7-18); Bilirubin, Total 0.4 mg/dL (0.2-1.0); CO2 27.9 mmol/L (21.0-32.0); Calcium 8.4 mg/dL (8.5-10.1); Chloride 100 mmol/L (98-107); Estimated GFR 57.35 (mL/min/1.73m2); Glucose 142 mg/dL (70-100); Magnesium 1.5 mg/dL (1.8-2.4); Sodium 138 mmol/L (136-145); Total Protein 6.9 g/dL (6.4-8.2)
[2019-01-09 09:24] LABS: Potassium 2.2 mmol/L (3.5-5.1)
[2019-01-09 09:33] LABS: Anisocytosis 2+; Diff Comment RBC Morph Reviewed; Hypochromasia 1+; Polychromasia Present
[2019-01-09 09:34] LABS: Poikilocytes 1+
[2019-01-12 09:52] LABS: Abs Immature Grans 0.02 k/cumm (0.0-0.09); Absolute Eosinophil Count 0.04 k/cumm (0.0-0.7); Absolute Lymphocyte Count 0.51 k/cumm (1.2-3.4); Absolute Monocyte Count 0.25 k/cumm (0.11-0.7); Absolute Neutrophil Count 4.62 k/cumm (1.2-6.7); Eosinophils % 0.7; HCT 30.2 % (36.0-46.0); HGB 9.9 g/dL (12.0-15.5); Immature Grans % 0.4; Lymphocytes % 9.4; Mean Corp. HGB Concentration 32.8 g/dL (32.0-36.0); Mean Corpuscular Hemoglobin 29.3 pg (27.0-33.0); Mean Corpuscular Volume 89.3 fL (80-95); Mean Platelet Volume 9.9 fL (8.0-11.0); Monocytes % 4.6; Neutrophils % 84.9; Platelet Count 310 x1000/uL (130-400); RBC 3.38 m/cumm (4.00-5.20); RBC Distribution Width 15.7 % (11.7-14.6); White Blood Cell Count 5.44 k/cumm (4.4-10.8)
[2019-01-12 10:04] LABS: ALT 94 U/L (12-78); AST 40 U/L (15-37); Alkaline Phosphatase 76 U/L (46-116); Anion Gap 10.6 mmol/L (3-11); BUN 19 mg/dL (7-18); Bilirubin, Total 0.3 mg/dL (0.2-1.0); CO2 27.4 mmol/L (21.0-32.0); CREATININE 1.02 mg/dL (0.55-1.02); Chloride 100 mmol/L (98-107); Estimated GFR 56.06 (mL/min/1.73m2); Glucose 108 mg/dL (70-100); Magnesium 1.5 mg/dL (1.8-2.4); Sodium 138 mmol/L (136-145); Total Protein 6.8 g/dL (6.4-8.2)
[2019-01-12 10:14] LABS: Potassium 2.9 mmol/L (3.5-5.1)
[2019-01-12 10:29] LABS: Anisocytosis 2+; Diff Comment RBC Morph Reviewed; Hypochromasia 1+; Macrocytosis 1+; Microcytosis 2+
[2019-01-12 10:30] LABS: Poikilocytes 1+; Polychromasia Present
[2019-01-16] MEDS: Normal Saline Flush 10 ML SYR IVP (10:11)
[2019-01-16 10:20] LABS: Abs Immature Grans 0.01 k/cumm (0.0-0.09); Absolute Lymphocyte Count 0.38 k/cumm (1.2-3.4); Absolute Monocyte Count 0.19 k/cumm (0.11-0.7); Absolute Neutrophil Count 2.09 k/cumm (1.2-6.7); HCT 29.8 % (36.0-46.0); HGB 10.2 g/dL (12.0-15.5); Immature Grans % 0.4; Lymphocytes % 14.2; Mean Corp. HGB Concentration 34.2 g/dL (32.0-36.0); Mean Corpuscular Hemoglobin 29.9 pg (27.0-33.0); Mean Corpuscular Volume 87.4 fL (80-95); Mean Platelet Volume 9.2 fL (8.0-11.0); Monocytes % 7.1; Neutrophils % 78.3; Platelet Count 274 x1000/uL (130-400); RBC 3.41 m/cumm (4.00-5.20); RBC Distribution Width 14.8 % (11.7-14.6); White Blood Cell Count 2.67 k/cumm (4.4-10.8)
[2019-01-16 10:42] LABS: ALT 92 U/L (12-78); AST 31 U/L (15-37); Albumin 3.3 g/dL (3.4-5.0); Alkaline Phosphatase 89 U/L (46-116); Anion Gap 12.2 mmol/L (3-11); BUN 22 mg/dL (7-18); Bilirubin, Total 0.6 mg/dL (0.2-1.0); CO2 26.8 mmol/L (21.0-32.0); CREATININE 1.21 mg/dL (0.55-1.02); Calcium 8.7 mg/dL (8.5-10.1); Chloride 94 mmol/L (98-107); Estimated GFR 46.03 (mL/min/1.73m2); Glucose 129 mg/dL (70-100); Magnesium 1.4 mg/dL (1.8-2.4); Potassium 3.3 mmol/L (3.5-5.1); Sodium 133 mmol/L (136-145); Total Protein 7.2 g/dL (6.4-8.2)
[2019-01-19] MEDS: Normal Saline Flush 10 ML SYR IVP ×2 (10:23→15:25)
[2019-01-19 10:36] LABS: Abs Immature Grans 0.01 k/cumm (0.0-0.09); Absolute Basophil Count 0.01 k/cumm (0.0-0.2); Absolute Lymphocyte Count 0.23 k/cumm (1.2-3.4); Absolute Monocyte Count 0.17 k/cumm (0.11-0.7); Absolute Neutrophil Count 2.92 k/cumm (1.2-6.7); Basophils % 0.3; HCT 25.8 % (36.0-46.0); HGB 8.5 g/dL (12.0-15.5); Immature Grans % 0.3; Lymphocytes % 6.9; Mean Corp. HGB Concentration 32.9 g/dL (32.0-36.0); Mean Corpuscular Hemoglobin 29.5 pg (27.0-33.0); Mean Corpuscular Volume 89.6 fL (80-95); Mean Platelet Volume 9.1 fL (8.0-11.0); Monocytes % 5.1; Neutrophils % 87.4; Platelet Count 154 x1000/uL (130-400); RBC 2.88 m/cumm (4.00-5.20); RBC Distribution Width 14.7 % (11.7-14.6); White Blood Cell Count 3.34 k/cumm (4.4-10.8)
[2019-01-19 10:46] LABS: ALT 70 U/L (12-78); AST 19 U/L (15-37); Alkaline Phosphatase 89 U/L (46-116); Anion Gap 10.7 mmol/L (3-11); BUN 11 mg/dL (7-18); Bilirubin, Total 0.5 mg/dL (0.2-1.0); CO2 24.3 mmol/L (21.0-32.0); CREATININE 1.02 mg/dL (0.55-1.02); Calcium 8.1 mg/dL (8.5-10.1); Chloride 98 mmol/L (98-107); Estimated GFR 56.06 (mL/min/1.73m2); Glucose 148 mg/dL (70-100); Magnesium 1.3 mg/dL (1.8-2.4); Potassium 3.5 mmol/L (3.5-5.1); Sodium 133 mmol/L (136-145); Total Protein 6.6 g/dL (6.4-8.2)
[2019-01-19] MEDS: Heparin 500 UNITS/5 ML SYRINGE IV (15:25)
[2019-01-20] VITALS (7 sets, daily range): BP systolic 97–109; BP diastolic 66–78; PULSE 70–105; RESP 18; TEMP 36.2–36.8; O2SAT 98–100
[2019-01-20] MEDS: Normal Saline Flush 10 ML SYR IVP (10:10)
[2019-01-23] MEDS: Normal Saline Flush 10 ML SYR IVP (11:36)
[2019-01-23] MEDS: Heparin 500 UNITS/5 ML SYRINGE IV (11:36)
[2019-01-23 11:52] LABS: Absolute Eosinophil Count 0.01 k/cumm (0.0-0.7); Absolute Lymphocyte Count 0.25 k/cumm (1.2-3.4); Absolute Monocyte Count 0.14 k/cumm (0.11-0.7); Eosinophils % 1.4; HCT 26.3 % (36.0-46.0); HGB 8.9 g/dL (12.0-15.5); Lymphocytes % 34.7; Mean Corp. HGB Concentration 33.8 g/dL (32.0-36.0); Mean Corpuscular Hemoglobin 30.4 pg (27.0-33.0); Mean Corpuscular Volume 89.8 fL (80-95); Mean Platelet Volume 9.2 fL (8.0-11.0); Monocytes % 19.4; Neutrophils % 44.5; RBC 2.93 m/cumm (4.00-5.20); RBC Distribution Width 14.7 % (11.7-14.6)
[2019-01-23 12:08] LABS: ALT 33 U/L (12-78); AST 9 U/L (15-37); Alkaline Phosphatase 89 U/L (46-116); Anion Gap 12.2 mmol/L (3-11); BUN 17 mg/dL (7-18); Bilirubin, Total 0.5 mg/dL (0.2-1.0); CO2 25.8 mmol/L (21.0-32.0); CREATININE 0.88 mg/dL (0.55-1.02); Calcium 8.6 mg/dL (8.5-10.1); Chloride 96 mmol/L (98-107); Glucose 131 mg/dL (70-100); Magnesium 1.4 mg/dL (1.8-2.4); Sodium 134 mmol/L (136-145); Total Protein 6.8 g/dL (6.4-8.2)
[2019-01-23 12:31] LABS: Absolute Neutrophil Count 0.32 k/cumm (1.2-6.7); Platelet Count 87 x1000/uL (130-400); White Blood Cell Count 0.72 k/cumm (4.4-10.8)
[2019-01-23 12:32] LABS: Diff Comment Agrees w/ Instrument; Polychromasia Present
[2019-01-27] MEDS: Heparin 500 UNITS/5 ML SYRINGE IV (11:15)
[2019-01-27] MEDS: Normal Saline Flush 10 ML SYR IVP (11:15)
[2019-01-27 11:23] LABS: HGB 8.5 g/dL (12.0-15.5); Mean Corp. HGB Concentration 32.7 g/dL (32.0-36.0); Mean Corpuscular Hemoglobin 29.8 pg (27.0-33.0); Mean Corpuscular Volume 91.2 fL (80-95); Mean Platelet Volume 9.4 fL (8.0-11.0); Platelet Count 160 x1000/uL (130-400); RBC 2.85 m/cumm (4.00-5.20); RBC Distribution Width 15.7 % (11.7-14.6); White Blood Cell Count 9.41 k/cumm (4.4-10.8)
[2019-01-27 11:43] LABS: ALT 22 U/L (12-78); AST 15 U/L (15-37); Alkaline Phosphatase 114 U/L (46-116); Anion Gap 8.5 mmol/L (3-11); BUN 13 mg/dL (7-18); Bilirubin, Total 0.2 mg/dL (0.2-1.0); CO2 26.5 mmol/L (21.0-32.0); CREATININE 0.93 mg/dL (0.55-1.02); Calcium 9.4 mg/dL (8.5-10.1); Chloride 98 mmol/L (98-107); Glucose 128 mg/dL (70-100); Magnesium 1.5 mg/dL (1.8-2.4); Potassium 3.9 mmol/L (3.5-5.1); Sodium 133 mmol/L (136-145); Total Protein 6.8 g/dL (6.4-8.2)
[2019-01-27 11:53] LABS: Absolute Lymphocyte Count 0.47 k/cumm (1.2-3.4); Absolute Monocyte Count 0.47 k/cumm (0.11-0.7); Absolute Neutrophil Count 7.62 k/cumm (1.2-6.7); Diff Comment Manual Differential; Nucleated RBC 1 /100WBC; Other Cells 1
[2019-01-27 11:54] LABS: Anisocytosis 1+
[2019-01-31] MEDS: Normal Saline Flush 10 ML SYR IVP (11:51)
[2019-01-31] MEDS: Heparin 500 UNITS/5 ML SYRINGE IV (11:51)
[2019-01-31 12:09] LABS: HCT 27.6 % (36.0-46.0); Mean Corp. HGB Concentration 32.6 g/dL (32.0-36.0); Mean Corpuscular Hemoglobin 30.3 pg (27.0-33.0); Mean Corpuscular Volume 92.9 fL (80-95); Mean Platelet Volume 8.9 fL (8.0-11.0); RBC 2.97 m/cumm (4.00-5.20); RBC Distribution Width 16.8 % (11.7-14.6); White Blood Cell Count 12.06 k/cumm (4.4-10.8)
[2019-01-31 12:21] LABS: ALT 18 U/L (12-78); AST 13 U/L (15-37); Albumin 3.4 g/dL (3.4-5.0); Alkaline Phosphatase 143 U/L (46-116); Anion Gap 10.3 mmol/L (3-11); BUN 16 mg/dL (7-18); Bilirubin, Total 0.2 mg/dL (0.2-1.0); CO2 26.7 mmol/L (21.0-32.0); CREATININE 1.01 mg/dL (0.55-1.02); Calcium 9.3 mg/dL (8.5-10.1); Chloride 98 mmol/L (98-107); Glucose 140 mg/dL (70-100); Potassium 3.9 mmol/L (3.5-5.1); Sodium 135 mmol/L (136-145); Total Protein 7.2 g/dL (6.4-8.2)
[2019-01-31 12:23] LABS: Platelet Count 358 x1000/uL (130-400)
[2019-01-31 12:24] LABS: Absolute Basophil Count 0.12 k/cumm (0.0-0.2); Absolute Lymphocyte Count 1.09 k/cumm (1.2-3.4); Absolute Monocyte Count 1.21 k/cumm (0.11-0.7); Absolute Neutrophil Count 8.32 k/cumm (1.2-6.7); Diff Comment Manual Differential
[2019-01-31 12:25] LABS: Anisocytosis 2+; Basophilic Stippling Present; Nucleated RBC 1 /100WBC; Polychromasia Present
[2019-01-31 12:51] LABS: Magnesium 1.7 mg/dL (1.8-2.4)
== END 2019-02-03 23:59 | disposition home or self-care (01) ==
LOC: INF 01:33
PROVIDERS: Nurse Practitioner Adult Health; PCP Emergency Medicine; Visit Provider Internal Medicine Hematology & Oncology
DX: C09.9 Malignant neoplasm of tonsil, unspecified (principal); Z45.2 Encounter for adjustment and management of vascular access device
CPT/HCPCS: 36430; 36591; 80053; 86850; 86900; 86901; 86920; 96523; 83735; 85025; P9016

== ENCOUNTER 2019-02-28 10:00 | Outpatient (RCR) | payer BC, SELFPAY ==
[2019-02-07] MEDS: Heparin 500 UNITS/5 ML SYRINGE IV (12:04)
[2019-02-07] MEDS: Normal Saline Flush 10 ML SYR IVP (12:04)
[2019-02-07 12:20] LABS: Abs Immature Grans 0.06 k/cumm (0.0-0.09); Absolute Basophil Count 0.03 k/cumm (0.0-0.2); Absolute Eosinophil Count 0.01 k/cumm (0.0-0.7); Absolute Lymphocyte Count 0.75 k/cumm (1.2-3.4); Absolute Monocyte Count 0.56 k/cumm (0.11-0.7); Absolute Neutrophil Count 5.07 k/cumm (1.2-6.7); Basophils % 0.5; Eosinophils % 0.2; HCT 28.5 % (36.0-46.0); HGB 9.2 g/dL (12.0-15.5); Immature Grans % 0.9; Lymphocytes % 11.6; Mean Corp. HGB Concentration 32.3 g/dL (32.0-36.0); Mean Corpuscular Hemoglobin 30.5 pg (27.0-33.0); Mean Corpuscular Volume 94.4 fL (80-95); Mean Platelet Volume 9.4 fL (8.0-11.0); Monocytes % 8.6; Neutrophils % 78.2; Platelet Count 381 x1000/uL (130-400); RBC 3.02 m/cumm (4.00-5.20); RBC Distribution Width 18.3 % (11.7-14.6); White Blood Cell Count 6.48 k/cumm (4.4-10.8)
[2019-02-07 12:38] LABS: ALT 22 U/L (12-78); AST 11 U/L (15-37); Albumin 3.4 g/dL (3.4-5.0); Alkaline Phosphatase 109 U/L (46-116); Anion Gap 9.2 mmol/L (3-11); BUN 21 mg/dL (7-18); Bilirubin, Total 0.2 mg/dL (0.2-1.0); CO2 25.8 mmol/L (21.0-32.0); CREATININE 0.81 mg/dL (0.55-1.02); Calcium 9.3 mg/dL (8.5-10.1); Chloride 99 mmol/L (98-107); Glucose 137 mg/dL (70-100); Magnesium 1.8 mg/dL (1.8-2.4); Potassium 4.1 mmol/L (3.5-5.1); Sodium 134 mmol/L (136-145); Total Protein 7.3 g/dL (6.4-8.2)
[2019-02-07 12:42] LABS: Diff Comment RBC Morph Reviewed
[2019-02-07 12:43] LABS: Anisocytosis 1+; Hypochromasia 1+; Polychromasia Present
[2019-02-13] MEDS: Heparin 500 UNITS/5 ML SYRINGE IV (12:23)
[2019-02-13] MEDS: Normal Saline Flush 10 ML SYR IVP (12:23)
[2019-02-13 12:42] LABS: Abs Immature Grans 0.01 k/cumm (0.0-0.09); Absolute Basophil Count 0.01 k/cumm (0.0-0.2); Absolute Eosinophil Count 0.02 k/cumm (0.0-0.7); Absolute Lymphocyte Count 0.81 k/cumm (1.2-3.4); Absolute Neutrophil Count 3.27 k/cumm (1.2-6.7); Basophils % 0.2; Eosinophils % 0.4; HCT 26.9 % (36.0-46.0); HGB 8.8 g/dL (12.0-15.5); Immature Grans % 0.2; Lymphocytes % 16.8; Mean Corp. HGB Concentration 32.7 g/dL (32.0-36.0); Mean Corpuscular Hemoglobin 31.2 pg (27.0-33.0); Mean Corpuscular Volume 95.4 fL (80-95); Mean Platelet Volume 9.5 fL (8.0-11.0); Monocytes % 14.5; Neutrophils % 67.9; Platelet Count 357 x1000/uL (130-400); RBC 2.82 m/cumm (4.00-5.20); RBC Distribution Width 17.6 % (11.7-14.6); White Blood Cell Count 4.82 k/cumm (4.4-10.8)
[2019-02-28] MEDS: Heparin 500 UNITS/5 ML SYRINGE IV (10:17)
[2019-02-28] MEDS: Normal Saline Flush 10 ML SYR IVP (10:17)
[2019-02-28 10:26] LABS: Abs Immature Grans 0.01 k/cumm (0.0-0.09); Absolute Basophil Count 0.02 k/cumm (0.0-0.2); Absolute Eosinophil Count 0.17 k/cumm (0.0-0.7); Absolute Monocyte Count 0.49 k/cumm (0.11-0.7); Absolute Neutrophil Count 3.89 k/cumm (1.2-6.7); Basophils % 0.4; Eosinophils % 3.1; HCT 31.3 % (36.0-46.0); HGB 9.9 g/dL (12.0-15.5); Immature Grans % 0.2; Lymphocytes % 16.4; Mean Corp. HGB Concentration 31.6 g/dL (32.0-36.0); Mean Corpuscular Hemoglobin 30.6 pg (27.0-33.0); Mean Corpuscular Volume 96.6 fL (80-95); Mean Platelet Volume 9.7 fL (8.0-11.0); Monocytes % 8.9; Platelet Count 308 x1000/uL (130-400); RBC 3.24 m/cumm (4.00-5.20); RBC Distribution Width 14.9 % (11.7-14.6); White Blood Cell Count 5.48 k/cumm (4.4-10.8)
[2019-02-28 10:41] LABS: ALT 27 U/L (12-78); AST 15 U/L (15-37); Albumin 3.7 g/dL (3.4-5.0); Alkaline Phosphatase 96 U/L (46-116); BUN 16 mg/dL (7-18); Bilirubin, Total 0.3 mg/dL (0.2-1.0); CREATININE 0.94 mg/dL (0.55-1.02); Calcium 9.1 mg/dL (8.5-10.1); Chloride 104 mmol/L (98-107); Glucose 118 mg/dL (70-100); Potassium 4.2 mmol/L (3.5-5.1); Sodium 140 mmol/L (136-145); Total Protein 7.6 g/dL (6.4-8.2)
== END 2019-03-05 23:59 | disposition home or self-care (01) ==
LOC: INF 10:00
PROVIDERS: Nurse Practitioner Adult Health; PCP Emergency Medicine; Visit Provider Internal Medicine Hematology & Oncology
DX: C09.9 Malignant neoplasm of tonsil, unspecified (principal); Z45.2 Encounter for adjustment and management of vascular access device
CPT/HCPCS: 36591; 80053; 83735; 85025

== ENCOUNTER 2019-07-19 01:00 | Outpatient (RCR) | payer BC, SELFPAY | END 2019-08-05 23:59 | disposition home or self-care (01) | LOC: INF 01:00 | PROVIDERS: PCP Emergency Medicine | DX: R69 Illness, unspecified (principal) ==

== ENCOUNTER 2019-11-06 16:12 | Emergency (ER) | payer BC, SELFPAY ==
[2019-11-06 16:27] VITALS: BP 97/61; PULSE 94; RESP 18; TEMP 36.7; O2SAT 98
--- NOTE | 2019-11-06 16:41 | ED.GENADUL_ITS ---
Discharge Plan Disposition Patient Disposition: HOME Condition: Stable Discharge Details Chief Complaint: RespSymp Clinical Impression: Sinusitis Primary Care Provider: Josue Vela ED Provider: Aleksey Sosa Home Meds and New Rx's Prescriptions: New doxycycline hyclate 100 mg tablet 100 mg PO BID Qty: 14 RF: 0 Continued methylphenidate HCl 10 MG tablet 10 mg PO TID PRNRF: 0 citalopram 20 mg Tablet 20 mg PO DAILY RF: 0 Discharge Instructions Instructions: Sinusitis (ED) Additional Instructions: If not better within a week see your primary care provider if you have high fevers, feel more ill or worsening trouble breathing return to the emergency department Medical Decision Making 59 yo female comes in with complaints of sinus congestion, rhinorrhea and dry cough for 10 days without fevers chills. Denies recent traavel and no dyspnea, abdominal pain or vomit. She has clear rhinorrhea on exam with pain over the sinues on percussion, eomi, no skin swelling or rashes. Suspect sinusitis. Has clear lung sounds so doubt pneumonia and appears well systemically. given length of time with symptoms start doxycycline and if not better within a week see pcp and return precautions given Differential Diagnosis Differential Diagnosis: sinusitis, uri, bronchitis HPI General Mode of arrival: ambulatory . Date/Time Provider Initiated Documentation: 11/06/19 16:41 . Limitations to Documentation: no limitations . Information obtained by: patient . History of Present Illness 59 year old F presents to the emergency department with the chief complaint of sinusitis, described as moderate, and it has been constant. No relieving factors improve symptom(s), No exacerbating factors reported . Patient did receive the following treatments prior to arrival, none Related Data Home Medications Medication Instructions Recorded Confirmed methylphenidate HCl 10 mg PO TID PRN 05/14/14 11/06/19 citalopram 20 mg PO DAILY 11/06/19 11/06/19 doxycycline hyclate 100 mg PO BID #14 tab 11/06/19 Previous Rx's Medication Instructions Recorded doxycycline hyclate 100 mg PO BID #14 tab 11/06/19 Allergies Allergy/AdvReac Type Severity Reaction Status Date / Time Penicillins Allergy Unknown Unverified 11/06/19 16:32 General Stated Complaint: RespSymp AMANDA: 3 Review of Systems All systems reviewed & are unremarkable except as noted in HPI and below Constitutional Constitutional: Denies chills, Denies fever(s) and Denies weakness Cardiovascular Cardiovascular: Denies chest pain and Denies dyspnea Respiratory Respiratory: Denies dyspnea Gastrointestinal Gastrointestinal: Denies abdominal pain, Denies nausea and Denies vomiting Musculoskeletal Musculoskeletal: Denies joint swelling Neurologic Neurologic: Denies weakness Psychiatric Psychiatric: Denies depression [facility] Social History Smoking/Tobacco Use Status: Never Alcohol Intake: never Drug use: Never Do you feel safe at home: Yes Do you feel safe in your relationship?: Yes Exam Const General: no acute distress Orientation: alert HENMT Head: normal to inspection Ears: external ears normal General nose exam: external nose normal Mouth: moist mucous membranes Eyes General: appearance normal, both eyes and all related structures Neck Neck: normal visual inspection Resp Effort & Inspection: normal respiratory effort and able to speak in complete sentences Cardio Rate: regular rate Skin General skin exam: no rashes or lesions noted Neuro General: alert and oriented x3 Extrem General: normal to inspection Psych Mental Status: mental status grossly normal Course Vital Signs Vital signs: Vital Signs Temperature 36.7 C 11/06/19 16:27 Pulse 94 H 11/06/19 16:27 Respiratory Rate 18 11/06/19 16:27 Blood Pressure 97/61 L 11/06/19 16:27 Pulse Oximetry 98 11/06/19 16:27 Temperature 36.7 C 11/06/19 16:27 Temperature Source Temporal Artery Scan 11/06/19 16:27 Pulse 94 H 11/06/19 16:27 Respiratory Rate 18 11/06/19 16:27 Respiratory Effort Non-Labored 11/06/19 16:34 Respiratory Depth Normal 11/06/19 16:34 Blood Pressure 97/61 L 11/06/19 16:27 Blood Pressure Position Sitting 11/06/19 16:27 Pulse Oximetry 98 11/06/19 16:27 Oxygen Delivery Method Room Air 11/06/19 16:27 Oxygen Flow Rate 0 11/06/19 16:27 Pain Level 0 11/06/19 16:27 Comment 11/06/19 16:27
== END 2019-11-06 16:47 | disposition home or self-care (01) ==
PROVIDERS: Emergency Provider Emergency Medicine; PCP Emergency Medicine
DX: J01.90 Acute sinusitis, unspecified (principal)
CPT/HCPCS: 99283

== ENCOUNTER 2020-01-10 01:27 | Outpatient (CLI) | payer BC, SELFPAY ==
[2020-01-10 08:12] LABS: CREATININE 1.04 mg/dL (0.55-1.02); Estimated GFR 54.62 (mL/min/1.73m2); TSH 7.37 uIU/mL (0.36-3.74)
--- NOTE | 2020-01-10 09:02 | DI.CT_ITS ---
EXAM: CT NECK W right CLINICAL HISTORY: TONSILLAR CA, C09.9,S/O CHEMORADIOTHERAPY FOR HEAD/NECK CA. TECHNIQUE: Imaging Protocol: Axial computed tomography images with coronal and sagittal reformatted images were created and reviewed CONTRAST MATERIAL: Intravenous: Omnipaque 350 Contrast volume:100 ml Contrast route:IV - FINDINGS: Parotids/submandibular/thyroid gland: Normal. Lymphadenopathy: No enlarged lymph nodes are identified. Carotids/Jugular: Within normal limits. Soft tissues: Dental work creates artifact at the level of the mouth. No mass is identified.. The epiglottis and vocal cords are within normal limits. Images through both lung apices are unremarkable. There are mild degenerative disc changes in the cervical spine. The sinuses, mastoid air cells, orbits and visualized portions of the brain are unremarkable. IMPRESSION: No evidence of recurrent mass or adenopathy.. RADIATION DOSE DELIVERED: Total DLP DATA REPOSITORY: All CT scans at this facility are submitted to the National Radiology Data Registry (NRDR) Dose Index Registry (DIR) with the [employer] ([employer]). RADIATION OPTIMIZATION: All CT scans at this facility use at least one of these dose optimization te chniques: automated exposure control; mA and/or kV adjustment per patient size (includes targeted exa ms where dose is matched to clinical indication); or iterative reconstruction.
[2020-01-10] MEDS: Normal Saline - Diluent 50 ML VIAL IV (09:08)
[2020-01-10] MEDS: Omnipaque 350 MG/ML 100 ML BTL IJ (09:08)
[2020-01-10] MEDS: Normal Saline Flush 10 ML SYR IVP (09:08)
== END 2020-01-10 01:47 ==
PROVIDERS: PCP Emergency Medicine; Visit Provider Preventive Medicine Undersea and Hyperbaric Medicine
DX: C09.9 Malignant neoplasm of tonsil, unspecified (principal); Z92.21 Personal history of antineoplastic chemotherapy; Z92.3 Personal history of irradiation
CPT/HCPCS: 70491; 82565; 84443; J3490

== ENCOUNTER 2020-10-23 02:09 | Outpatient (CLI) | payer BC, SELFPAY ==
--- NOTE | 2020-10-23 12:40 | DI.MAMMO_ITS ---
EXAM: MG MAMMO SCREENING CLINICAL HISTORY: screening,z12.39. TECHNIQUE: Bilateral full field digital CC and MLO mammographic images were obtained with 3D tomosyn thesis and utilizing computer aided detection (CAD). COMPARISON: None available. Last mammogram apparently 2007 FINDINGS: There are no CAD designations. In the right breast on 3D imaging there is a suggestion of a noncalcified 6 x 5 millimeter nodule loc ated approximately 4 centimetres in from the nipple. In the opposite-left breast there is a suggesti on of a noncalcified nodule measuring 4 x 3 millimeters, located approximately 3 cm in from the nippl e. There are no malignant-appearing microcalcification groups in this region or elsewhere in either breast. There is no significant architectural distortion nor skin thickening-retraction. IMPRESSION: Bilateral nodules as described above. Spot compression views and ultrasound recommended. BI-RADS Category 0 - Assessment Incomplete: Need additional imaging evaluation Breast Density - Category B - Scattered areas of fibroglandular density Breast density Category C or D implies that the patient has dense breast tissue. Dense breast tissue can make it harder to find cancer on a mammogram. Dense breast tissue is also associated with an incr eased risk of breast cancer. This information about the result of the mammogram report was provided to the patient to raise their awareness. Use this report when you speak with the patient about their risks for breast cancer, which includes their family history. At that time, you may recommend additional screening tests (Ultrasoun d or MRI) as these tests may add significant information. A negative radiographic report should not delay biopsy if a dominant or clinically suspicious mass is present. Up to ten percent of cancers are not identified on mammography. A negative report may reinforce clinical impression. Adenosis and dense breasts may obscure an underlying neoplasm. False positive reports average 6 to 10%. Patient will receive a letter notifying them of these results.
== END 2020-10-23 02:10 ==
PROVIDERS: PCP Nurse Practitioner; Visit Provider Nurse Practitioner
DX: Z12.31 Encounter for screening mammogram for malignant neoplasm of breast (principal); R92.8 Other abnormal and inconclusive findings on diagnostic imaging of breast
CPT/HCPCS: 77063; 77067

== ENCOUNTER 2020-10-30 01:38 | Outpatient (CLI) | payer BC, SELFPAY ==
--- NOTE | 2020-10-30 | DI.US_ITS ---
EXAM: US BREAST RT COMPLETE CLINICAL HISTORY: F/U MAMMO, RT BREAST NODULE. TECHNIQUE: Complete ultrasound of the both breasts was performed incluing all 4 quadrants, the retr oareolar region, and the ipsilateral axilla. COMPARISON: Prior recent mammogram was reviewed FINDINGS: LEFT breast ultrasound reveals no findings to correspond to the small benign-appearing nodule on the mammogram and therefore I would most probably is a benign lymph node. At the 4 o'clock position there is an 11 x 2 millimeter wider than taller benign-appearing finding wh ich is probably slightly prominent duct. No associated worrisome decreased through transmission. No other significant focal findings in all 4 quadrants. No adenopathy in the ipsilateral left axilla. RIGHT breast ultrasound reveals a 4 by 3 millimeter septated microcysts at the 12 o'clock position. There is also 4 millimeter septated microcyst or conglomeration microcysts at the 1 o'clock position. These may correspond to the findings on the mammogram. There are no ominous solid lesions seen in all 4 quadrants of the right breast nor in the immediate retroareolar region. There is no significan t adenopathy in the ipsilateral right axilla. IMPRESSION: Bilateral benign-appearing ultrasound findings as described above. Appropriate follow-up is repeat bilateral mammogram and bilateral ultrasound in 6 months.. Findings are recommendations were discussed by myself with the patient today. BI-RADS Category 3 - 6 month - Probably Benign Finding: Recommend follow-up mammography in 6 months Breast Density - Category B - Scattered areas of fibroglandular density Breast density Category C or D implies that the patient has dense breast tissue. Dense breast tissue can make it harder to find cancer on a mammogram. Dense breast tissue is also associated with an incr eased risk of breast cancer. This information about the result of the mammogram report was provided to the patient to raise their awareness. Use this report when you speak with the patient about their risks for breast cancer, which includes their family history. At that time, you may recommend additional screening tests (Ultrasoun d or MRI) as these tests may add significant information. A negative radiographic report should not delay biopsy if a dominant or clinically suspicious mass is present. Up to ten percent of cancers are not identified on mammography. A negative report may reinforce clinical impression. Adenosis and dense breasts may obscure an underlying neoplasm. False positive reports average 6 to 10%. Patient will receive a letter notifying them of these results.
--- NOTE | 2020-10-30 | DI.US_ITS ---
EXAM: US BREAST LT COMPLETE CLINICAL HISTORY: F/U MAMMO, LT BREAST NODULE. TECHNIQUE: Bilateral breast ultrasound was performed COMPARISON: Prior mammograms 10/23/2020 and today's diagnostic images were reviewed. FINDINGS: See combined bilateral breast ultrasound report IMPRESSION: Benign findings. See separate report Appropriate follow-up is repeat bilateral breast imaging including repeat bilateral mammogram and ult rasound in 6 months. Findings are recommendations were discussed by myself with the patient today. BI-RADS Category 3 - 6 month - Probably Benign Finding: Recommend follow-up mammography in 6 months Breast Density - Category B - Scattered areas of fibroglandular density Breast density Category C or D implies that the patient has dense breast tissue. Dense breast tissue can make it harder to find cancer on a mammogram. Dense breast tissue is also associated with an incr eased risk of breast cancer. This information about the result of the mammogram report was provided to the patient to raise their awareness. Use this report when you speak with the patient about their risks for breast cancer, which includes their family history. At that time, you may recommend additional screening tests (Ultrasoun d or MRI) as these tests may add significant information. A negative radiographic report should not delay biopsy if a dominant or clinically suspicious mass is present. Up to ten percent of cancers are not identified on mammography. A negative report may reinforce clinical impression. Adenosis and dense breasts may obscure an underlying neoplasm. False positive reports average 6 to 10%. Patient will receive a letter notifying them of these results.
--- NOTE | 2020-10-30 09:35 | DI.MAMMO_ITS ---
EXAM: MG MAMMO SCREEN CALL BACK BI CLINICAL HISTORY: F/U MAMMO, BILAT NODULES. TECHNIQUE: Bilateral spot compression 3D views were obtained with 3D tomosynthesis and utilizing App Partner puter aided detection (CAD). COMPARISON: Prior screening mammogram 10/23/2019 FINDINGS: Nodules persist bilaterally on these additional mammographic 3D diagnostic views. See separate ultrasound report performed today which reveals benign-appearing bilateral findings. IMPRESSION: As above. Please see separate ultrasound report. Appropriate follow-up, as discussed by myself with the patient today, is repeat bilateral breast ultr asound and mammogram in 6 months. BI-RADS Category 3 - 6 month - Probably Benign Finding: Recommend follow-up mammography in 6 months Breast Density - Category B - Scattered areas of fibroglandular density Breast density Category C or D implies that the patient has dense breast tissue. Dense breast tissue can make it harder to find cancer on a mammogram. Dense breast tissue is also associated with an incr eased risk of breast cancer. This information about the result of the mammogram report was provided to the patient to raise their awareness. Use this report when you speak with the patient about their risks for breast cancer, which includes their family history. At that time, you may recommend additional screening tests (Ultrasoun d or MRI) as these tests may add significant information. A negative radiographic report should not delay biopsy if a dominant or clinically suspicious mass is present. Up to ten percent of cancers are not identified on mammography. A negative report may reinforce clinical impression. Adenosis and dense breasts may obscure an underlying neoplasm. False positive reports average 6 to 10%. Patient will receive a letter notifying them of these results.
== END 2020-10-30 01:39 ==
LOC: DI 01:38
PROVIDERS: PCP Nurse Practitioner; Visit Provider Nurse Practitioner
DX: Z12.31 Encounter for screening mammogram for malignant neoplasm of breast (principal); R92.8 Other abnormal and inconclusive findings on diagnostic imaging of breast; N60.81 Other benign mammary dysplasias of right breast; N60.82 Other benign mammary dysplasias of left breast
CPT/HCPCS: 76642; 77063; 77067

== ENCOUNTER 2020-11-22 01:53 | Outpatient (CLI) | payer BC, SELFPAY ==
[2020-11-22 12:22] LABS: HCT 38.4 % (36.0-46.0); HGB 12.5 g/dL (11.2-15.7); MCH 30.3 pg (27.0-33.0); MCHC 32.6 % (32.0-36.0); MCV 93.2 fL (80-95); MPV 10.2 fL (8.0-11.0); Platelet Count 167 10^3/uL (130-400); RBC 4.12 10^6/uL (3.93-5.22); RDW 12.2 % (11.7-14.6); RDW-SD 41.8 fL; WBC 3.43 10^3/uL (4.4-10.8)
[2020-11-22 12:44] LABS: Calculated LDL 141 mg/dL (<100); Cholesterol 228 mg/dL (<200); HDL Cholesterol 78 mg/dL (40-60); Triglyceride 45 mg/dL (<150)
[2020-11-22 13:07] LABS: FREE T4 0.85 ng/dL (0.76-1.46)
[2020-11-22 14:14] LABS: Hemoglobin A1C 5.5 % (<5.7)
== END 2020-11-22 01:54 | disposition home or self-care (01) ==
LOC: LOS 01:53
PROVIDERS: PCP Nurse Practitioner; Visit Provider Nurse Practitioner
DX: D64.9 Anemia, unspecified (principal); E03.9 Hypothyroidism, unspecified; R94.6 Abnormal results of thyroid function studies; Z13.1 Encounter for screening for diabetes mellitus; Z13.6 Encounter for screening for cardiovascular disorders
CPT/HCPCS: 36415; 80061; 85027; 83036; 84439; 84443

== ENCOUNTER 2020-12-04 03:20 | Outpatient (CLI) | payer BC, SELFPAY ==
[2020-12-04 12:51] LABS: Abs Immature Grans 0.01 10^3/uL (0.0-0.06); Absolute Basophil Count 0.03 10^3/uL (0.0-0.2); Absolute Eosinophil Count 0.18 10^3/uL (0.0-0.7); Absolute Lymphocyte Count 0.71 10^3/uL (1.2-3.4); Absolute Monocyte Count 0.27 10^3/uL (0.1-0.8); Absolute Neutrophil Count 2.06 10^3/uL (1.2-6.7); Basophils % 0.9; Eosinophils % 5.5; HCT 35.7 % (36.0-46.0); HGB 11.5 g/dL (11.2-15.7); Immature Grans % 0.3; Lymphocytes % 21.8; MCH 29.5 pg (27.0-33.0); MCHC 32.2 % (32.0-36.0); MCV 91.5 fL (80-95); MPV 9.9 fL (8.0-11.0); Monocytes % 8.3; Neutrophils % 63.2; Nucleated RBC 0 %; Platelet Count 160 10^3/uL (130-400); RDW 12.4 % (11.7-14.6); RDW-SD 41.6 fL; WBC 3.26 10^3/uL (4.4-10.8)
[2020-12-04 13:05] LABS: TSH (W/Ref FT4) 3.39 uIU/mL (0.36-3.74)
== END 2020-12-04 03:21 | disposition home or self-care (01) ==
LOC: LOS 03:21
PROVIDERS: PCP Nurse Practitioner; Visit Provider Nurse Practitioner
DX: E03.9 Hypothyroidism, unspecified (principal); D72.819 Decreased white blood cell count, unspecified
CPT/HCPCS: 36415; 84443; 85025

== ENCOUNTER 2021-01-03 01:38 | Outpatient (CLI) | payer BC, SELFPAY ==
[2021-01-03 13:17] LABS: TSH (W/Ref FT4) 1.72 uIU/mL (0.36-3.74)
== END 2021-01-03 01:39 | disposition home or self-care (01) ==
PROVIDERS: PCP Nurse Practitioner; Visit Provider Nurse Practitioner
DX: E03.9 Hypothyroidism, unspecified (principal)
CPT/HCPCS: 36415; 84443

== ENCOUNTER 2021-01-10 03:34 | Outpatient (CLI) | payer BC, SELFPAY ==
[2021-01-10 10:18] LABS: Source Nasal/Nares
[2021-01-10 15:38] LABS: COVID-19 PCR Negative (Negative)
== END 2021-01-10 03:35 | disposition home or self-care (01) ==
LOC: LBO 03:34
PROVIDERS: PCP Nurse Practitioner; Visit Provider Surgery
DX: Z20.822 Contact with and (suspected) exposure to COVID-19 (principal)
CPT/HCPCS: 87635

== ENCOUNTER 2021-01-13 07:14 | Day surgery (SDC) | payer BC, SELFPAY ==
--- NOTE | 2021-01-13 06:35 | W.COLOREPORT ---
Date of service: 01/13/21 Time of Service: 08:14 Colonoscopy Report Date of procedure: 01/13/21 Pre-op diagnosis general: Colon Cancer Screening Post-op diagnosis procedure note: same (small internal hemorrhoids and external skin tag) Procedure: Colonoscopy Surgeon: Alvina Davidson Anesthesia Type: General:No Airway (ASA 2/ Charles Prieto CRNA) Estimated blood loss (mL): 0 Pathology: none sent Complications: None Disposition: same day Indications: The patient is here for Colonoscopy pre-op. She has no family history of colon cancer. She has not had any bowel habit changes. Of note labs have shown anemia since her cancer treatments. -Discussed colonoscopy bowel prep as well as the procedure. Discussed possible complications of the procedure to include bleeding, pain, perforation, missed small lesion/polyp, sore throat, aspiration and adverse reaction to the medications. Questions were answered to patient?s satisfaction. No guarantees were implied or given. Prep: Miralax/Dulcolax Procedure Start Time: 08:14 Procedure End Time: 08:35 Retraction Time: 12 minutes Findings: Grade 1 internal hemorrhoids ssmall external skin tag Procedure Description: After informed consent was obtained the patient was taken to the procedure room and placed in a left decubitous position. Monitors were applied and a time out was done. The patients name, date of , procedure, allergies to medications and metal in their body was reviewed. The patient was then sedated. Once sedated and comfortable a rectal exam was done. External exam revealed a small skin tagl. Internal exam revealed a normal sphincter tone and no palpable masses. The scope was then introduced and retro-flexed. Grade 1 internal hemorrhoids were identified. No polyps or masses were identified on retro-flexion. The scope was then advanced to the cecum without difficulty. The ileocecal vlave and appendiceal orifice were identified. The prep was good. The scope was then slowly retracted over 12 minutes back into the rectum. There were no polyps. There was no diverticulosis noted. The scope was removed and the patient was woken up and taken back to Same day surgery in stable condition. The patient tolerated the procedure well and there were no immediate complications. Follow up: The patient should follow up in 10 years unless they develop changes in bowel habits or other new gastrointestinal complaints.
--- NOTE | 2021-01-13 06:36 | W.PM.DSUDISC ---
Discharge Plan Disposition Patient Disposition: HOME Condition: Good Discharge Details Reason For Visit: Colonoscopy Attending Provider: Alvina Davidson Primary Care Provider: Alicia Villalobos Home Meds and New Rx's Prescriptions: Continued naproxen sodium [Aleve] 220 mg tablet 220 mg PO BID RF: 0 cholecalciferol (vitamin D3) 50 mcg (2,000 unit) capsule 50 mcg PO DAILY RF: 0 calcium carbonate [Calcium 500] 500 mg calcium (1,250 mg) tablet 500 mg PO DAILY RF: 0 citalopram 40 mg tablet 40 mg PO DAILY Qty: 90 RF: 4 levothyroxine 50 mcg tablet 50 mcg PO DAILY Qty: 60 RF: 0 methylphenidate HCl 10 MG tablet 10 mg PO TID PRNRF: 0 Discontinued bisacodyl [Dulcolax (bisacodyl)] 5 mg tablet,delayed release (DR/EC) 5 mg PO ONCE Qty: 4 RF: 0 polyethylene glycol 3350 17 gram/dose powder 238 g PO ONCE Qty: 238 RF: 0 Discharge Instructions Additional Instructions: Findings: small external skin tag small internal hemorrhoids Follow up: 10 years Please call if you develop: fevers >101.5 Nausea or Vomiting Abdominal pain that is not transient Rectal bleeding that is more then a tbsp A hard abdomen and inability to pass gas DAY SURGERY UNIT POST ENDOSCOPY INSTRUCTIONS Instructions for everyone who is given Anesthesia: For your safety, please do the following for the next 24 Hours: a. Do not drive or operate dangerous equipment b. Do not drink alcohol beverages or use any recreational drugs for the first 24 hours or while taking pain medications. The medications in your body may have a reaction that can be dangerous. c. Do not make any important decisions or sign any important papers 1. Generally there are no restrictions on your activity after a day or so has gone by, but you may feel a bit fatigued for a few days. 2. After you arrive home you may have a light meal and return to a normal diet as you can tolerate it without feeling sick to your stomach. 3. After surgery, you may feel pain or discomfort. This should be only transient, but if it persists please contact your doctor. 4. If there are any questions regarding the findings of your procedure, please feel free to contact your doctor. 6. If you are unable to contact your doctor with a problem, contact the hospital at [phone]. 2. Continue all your regular medications unless directed otherwise. I understand the above instructions and have no questions. Signature of Patient or Responsible Adult Escort Date/Time Name of Responsible Adult Escort Signature of Nurse Date/Time Activity:: Activity as Tolerated Diet:: As Tolerated Discharge Orders Discharge Orders: Discharge Order (Routine); Ordered 01/13/21 Ordered By: Alvina Davidson
[2021-01-13 07:34] VITALS: BP 104/72; PULSE 107; RESP 18; TEMP 36.6; O2SAT 97
--- NOTE | 2021-01-13 07:42 | W.ANESPRE ---
General Info Date of Service Date Performed: 01/13/21 Height: 5 ft 5 in Weight: 69.8 kg Body Mass Index (BMI): 25.6 Surgical Procedure: Operation Date: 01/13/21 08:20 Proposed Procedures Side Surgeon maddison Davidson MD Meds Allergies and Home Medications Allergies Allergy/AdvReac Type Severity Reaction Status Date / Time Penicillins Allergy Unknown Unverified 01/13/21 07:31 Home Medication Medication Instructions Recorded methylphenidate HCl 10 mg PO TID PRN 05/14/14 naproxen sodium 220 mg tablet 220 mg PO BID tab 10/11/20 levothyroxine 50 mcg tablet 50 mcg PO DAILY #60 tab 11/22/20 calcium carbonate 500 mg calcium 500 mg PO DAILY 11/29/20 (1,250 mg) tablet cholecalciferol (vitamin D3) 50 50 mcg PO DAILY 11/29/20 mcg (2,000 unit) capsule citalopram 40 mg tablet 40 mg PO DAILY #90 tab 01/02/21 Current Visit Medications: Current Medications Generic Name Dose Route Start Last Admin Trade Name Freq PRN Reason Stop Dose Admin Hyoscyamine Sulfate 0.125 mg 01/13/21 06:37 Hyoscyamine 0.125 Mg Sl/Oral/Chew SL DIRECTED PRN Ringer's Solution 1,000 mls @ 80 mls/hr 01/13/21 06:00 IV 02/09/21 23:59 INFUSION MARYCRUZ IV Miscellaneous Supplies 1 each 01/13/21 06:00 Iv Access IV 02/09/21 23:59 DIRECTED MARYCRUZ Ondansetron HCl 4 mg 01/13/21 06:37 Ondansetron 4 Mg/2 Ml Vial IVP Q4H PRN PRN Nausea / Vomiting Sodium Chloride 0 ml 01/13/21 06:00 Normal Saline Flush 10 Ml Syr IV 02/09/21 23:59 PRN PRN Sodium Chloride 0 ml 01/13/21 06:00 Normal Saline 10 Ml Vial IJ 02/09/21 23:59 DIRECTED PRN Sterile Water 0 ml 01/13/21 06:00 Water,Injection,Sterile 10 Ml Vial IJ 02/09/21 23:59 DIRECTED PRN PFSH Active Problems Active Problems: Problem Status Onset Code Tonsil cancer C09.9 Anemia D64.9 TMJ (temporomandibular joint disorder) M26.609 Hypersomnia G47.10 Subclinical hypothyroidism E03.9 Decreased leukocytes D72.819 Anxiety about health F41.8 Medical History Medical History (Updated 01/13/21 @ 07:33 by Trinidad Bobo) GERD (gastroesophageal reflux disease) pt. denies History of gastrostomy tube placement Idiopathic hypersomnolence Tonsil cancer Surgical History Surgical History History of hysterectomy S/P cholecystectomy S/P tonsillectomy R tonsil Tobacco Smoking/Tobacco Use Status: Never Passive smoking exposure: Yes Alcohol Alcohol Intake: current Alcohol intake frequency: a few times a month Alcohol type: beer and hard liquor Substance Use Substance use: Never Substance use type: does not use Details: alcohol: unknown Vital Signs and Lab Results Vital Signs Most Recent Vital Signs in EMR: Most Recent Vital Signs Temp Pulse Resp BP Pulse Ox 36.6 C 107 H 18 104/72 97 01/13/21 07:34 01/13/21 07:34 01/13/21 07:34 01/13/21 07:34 01/13/21 07:34 Lab Results Blood Type / Crossmatch: Patient ABO/Rh O Positive 01/19/19 15:25 01/19/19 Antibody Screen Negative 01/19/19 15:25 01/19/19 Crossmatch See Detail 01/19/19 15:25 01/19/19 Complete Blood Count: White Blood Count 3.26 10^3/uL (4.4-10.8) L 12/04/20 09:37 12/04/20 Red Blood Count 3.90 10^6/uL (3.93-5.22) L 12/04/20 09:37 12/04/20 Hemoglobin 11.5 g/dL (11.2-15.7) 12/04/20 09:37 12/04/20 Hematocrit 35.7 % (36.0-46.0) L 12/04/20 09:37 12/04/20 Platelet Count 160 10^3/uL (130-400) 12/04/20 09:37 12/04/20 Complete Metabolic Panel: Sodium Level 140 mmol/L (136-145) 02/28/19 10:10 02/28/19 Potassium Level 4.2 mmol/L (3.5-5.1) 02/28/19 10:10 02/28/19 Chloride Level 104 mmol/L (98-107) 02/28/19 10:10 02/28/19 Carbon Dioxide Level 27.0 mmol/L (21.0-32.0) 02/28/19 10:10 02/28/19 Blood Urea Nitrogen 16 mg/dL (7-18) 02/28/19 10:10 02/28/19 Creatinine 1.04 mg/dL (0.55-1.02) H 01/10/20 07:42 01/10/20 Magnesium Level 2.0 mg/dL (1.8-2.4) 02/28/19 10:10 02/28/19 Calcium Level 9.1 mg/dL (8.5-10.1) 02/28/19 10:10 02/28/19 Albumin 3.7 g/dL (3.4-5.0) 02/28/19 10:10 02/28/19 Glucose Level 118 mg/dL (70-100) H 02/28/19 10:10 02/28/19 Hemoglobin A1c 5.5 % (<5.7) 11/22/20 08:26 11/22/20 Liver Function Panel: Alanine Aminotransferase (ALT/SGPT) 27 U/L (12-78) 02/28/19 10:10 02/28/19 Aspartate Amino Transf (AST/SGOT) 15 U/L (15-37) 02/28/19 10:10 02/28/19 Coagulation Panel: No Data to Display Cardiac Panel: No Data to Display Arterial Blood Gas: No Data to Display Venous Blood Gas: No Data to Display Pancreas Panel: Lipase 170 U/L (73-393) 12/24/18 17:15 12/24/18 Thyroid Panel: Thyroid Stimulating Hormone (TSH) 1.72 uIU/mL (0.36-3.74) 01/03/21 09:35 01/03/21 Infectious Disease: Coronavirus (COVID-19)(PCR) Negative (Negative) 01/10/21 08:48 01/10/21 Coronavirus 2019 Source Nasal/nares 01/10/21 08:48 01/10/21 Group A Streptococcus Rapid Positive 05/28/15 14:26 05/28/15 Hepatitis B Surface Antigen Negative (Negative) 03/30/16 13:18 03/30/16 Blood Cultures: No Data to Display Toxicology Panel: No Data to Display Anesthesia Assessment and Plan Anesthesia History Personal History: PONV Family History: No Family History of Anesthesia Complications Exercise Tolerance Exercise Tolerance: Metabolic Equivalents>4 Pertinent Negatives Pertinent Negatives: No Symptoms of GERD Cardiac & Pulmonary Exam Cardiac Exam: Normal S1/S2 Heart Sounds Pulmonary Exam: Clear Bilateral Breath Sounds Airway Exam Known Difficult Airway: No Mallampati Class: 1 Mouth Opening: Normal (> 3cm) Thyromental Distance: Greater than 3 cm Neck Range of Motion: Full ROM Neck Circumference: Normal Teeth Condition: Normal Dentition Airway Comment:: Reports frequent srry airway with limited oral secretions. ASA Classification ASA Score: ASA 2 Emergency Case?: No NPO Status NPO Status: NPO Clears >2 hours, Solids >8 hours Anesthesia Plan Anesthesia Technique: General Anesthesia Airway Planned: Natural Airway Monitors Used: Standard Monitors
[2021-01-13] MEDS: Lactated Ringers 1,000 ML 80 ML IV (07:45)
[2021-01-13 07:47] VITALS: BMI 25.6
[2021-01-13 08:40] VITALS: BP 84/46; PULSE 61; RESP 18; TEMP 36.4; O2SAT 97
[2021-01-13 08:42] VITALS: BP 84/46; PULSE 64; RESP 18; TEMPC 36.4; O2SAT 98
--- NOTE | 2021-01-13 08:42 | W.ANESPOSTOP ---
Postoperative Evaluation Date, Time and Location Date Performed: 01/13/21 Time Performed: 08:42 Patient Location: Day Surgery Unit Vital Signs Most Recent Imported Vital Signs: Most Recent Vital Signs Temp Pulse Resp BP Pulse Ox 36.6 C 107 H 18 104/72 97 01/13/21 07:34 01/13/21 07:34 01/13/21 07:34 01/13/21 07:34 01/13/21 07:34 Most Recent Manually Entered Vital Signs: Adult Blood Pressure: 84/46 Heart Rate: 64 Respirations: 18 Oxygen Saturation (%): 98 Temperature (C): 36.4 C Pain Score (0-10 Scale): 0 Pain Score Most Recent Pain Score: Most Recent Pain Score Pain Level 0 01/13/21 07:34 Assessment Mental Status: Awake (Alert & Oriented to Patient Baseline) Airway and Respiratory Function: Patent airway with normal (patient baseline) respiratory exam Cardiovascular Function: Hemodynamically Stable Hydration Status: Adequately Hydrated Nausea & Vomiting: No Nausea or Vomiting Pain: Pt. Denies Any Pain Peripheral Nerve Block: Patient did not receive a nerve block
[2021-01-13 09:10] VITALS: BP 95/40; PULSE 62; RESP 18; TEMP 36.4; O2SAT 97
== END 2021-01-13 09:42 | disposition home or self-care (01) ==
LOC: SUR 07:14
PROVIDERS: PCP Nurse Practitioner; Visit Provider Surgery
PROC: 0DJD8ZZ Inspection of Lower Intestinal Tract, Via Natural or Artificial Opening Endoscopic (ICD-10-PCS; CPT 45378; principal; 2021-01-13 08:15)
DX: Z12.11 Encounter for screening for malignant neoplasm of colon (principal); K64.8 Other hemorrhoids
CPT/HCPCS: 45378

== ENCOUNTER 2021-04-29 03:31 | Outpatient (CLI) | payer BC, SELFPAY ==
--- NOTE | 2021-04-29 07:45 | DI.MAMMO_ITS ---
Exam(s) MAMMO DIAGNOSTIC BI EXAM: MAMMO DIAGNOSTIC BI CLINICAL HISTORY: 3-6 MO F/U, R92.8. COMPARISON: Mammograms from 23 October 2020 and breast ultrasound of 30 October 2020. TECHNIQUE: Craniocaudal and mediolateral oblique Full Field Digital Mammography views of the left b reast with Computer Aided Diagnosis followed by Tomosynthesis FINDINGS: Mammography/Tomosynthesis: Masses/Architectural Distortion: Stable small bilateral circumscribed nodules. None suspicious bert s seen. Microcalcifications: No suspicious pleomorphic-type are seen. Skin Thickening/Nipple Retraction: None. IMPRESSION: 1. No evidence of malignancy is noted. 2. Unless there is more urgent need, follow-up screening mammography is recommended, as per [place] [employer] guidelines. BI-RADS Category 2 - Benign Findings Breast Density - Category B - Scattered areas of fibroglandular density A negative radiographic report should not delay biopsy if a dominant or clinically suspicious mass is present. Up to ten percent of cancers are not identified on mammography. A negative report may reinforce clinical impression. Adenosis and dense breasts may obscure an underlying neoplasm. False positive reports average 6 to 10%. Patient will receive a letter notifying them of these results.
== END 2021-04-29 03:51 ==
PROVIDERS: PCP Nurse Practitioner; Visit Provider Nurse Practitioner
DX: R92.8 Other abnormal and inconclusive findings on diagnostic imaging of breast (principal); Z09 Encounter for follow-up examination after completed treatment for conditions other than malignant neoplasm; N63.20 Unspecified lump in the left breast, unspecified quadrant; N63.10 Unspecified lump in the right breast, unspecified quadrant
CPT/HCPCS: 77062; 77066; G0279

== ENCOUNTER 2021-12-23 21:03 | Emergency (ER) | payer BC, SELFPAY ==
[2021-12-23 21:06] VITALS: BP 102/66; PULSE 77; RESP 18; TEMP 36.6; O2SAT 98
--- NOTE | 2021-12-23 21:15 | DI.RAD_ITS ---
Exam(s) XR ANKLE RT COMPLETE EXAM: XR ANKLE RT COMPLETE CLINICAL HISTORY: twist injury TECHNIQUE: COMPARISON: No exams were available for comparison FINDINGS: Three views were obtained. There is moderate soft tissue swelling of the ankle. The ankle mortise i s well maintained. There is an apparent small chip fracture of the dorsum of the distal talus with m inimal displacement. No other fracture seen. IMPRESSION: RADIATION DOSE DELIVERED: Total DLP
--- NOTE | 2021-12-23 21:56 | W.ED.GENAD ---
Discharge Plan Disposition Patient Disposition: HOME Condition: Stable Discharge Details Clinical Impression: Avulsion fracture of right talus Primary Care Provider: Alicia Villalobos ED Provider: Andrew Stubbs Home Meds and New Rx's Prescriptions: Continued methylphenidate HCl 20 mg tablet extended release 20 mg PO QAM 0RF Rx Instructions: RX'd by Katherine Mcclure NP [facility] gabapentin 300 mg capsule 300 mg PO QHS 0RF Label Comments: Rx reads take 1 tab TID. -hb Rx Instructions: [facility]: cholecalciferol (vitamin D3) 50 mcg (2,000 unit) capsule 50 mcg PO DAILY 0RF calcium carbonate [Calcium 500] 500 mg calcium (1,250 mg) tablet 500 mg PO DAILY 0RF citalopram 40 mg tablet 40 mg PO DAILY Qty: 90 4RF levothyroxine 50 mcg tablet 50 mcg PO DAILY Qty: 90 4RF Discharge Instructions Instructions: Talar Fracture in Adults (ED) Additional Instructions: Aware walking boot and use crutches as needed, advance activity as tolerated. Be sure to wear the walking boot until reevaluation with orthopedics. Rest, elevate, cool compresses every 2 hours for 20 minutes. [id number] Tylenol and/or Motrin as directed for discomfort. Please watch for new or worsening symptoms and return to the ER for any concerns. Lastly, contact the orthopedic office tomorrow to discuss outpatient reevaluation. I have placed you on the list to help expedite outpatient care Referrals: Shabbir High MD [ [facility] STAFF PHYSICIAN] - Discharge Data Discharge Date/Time-TO BE ENTERED AT DEPARTURE: 12/23/21 22:18 Medical Decision Making 61-year-old female, about 5 and half hours ago twisted her right foot and ankle but did not fall to the ground. Reports moderate discomfort. Denies any injury, numbness, tingling, weakness. There is no base of the fifth metatarsal point tenderness. Will obtain x-ray and reassess X-ray concerning for avulsion fracture off of the talus. Discussed x-ray findings with patient and family. Placed into a walking boot and crutches, placed on the orthopedic list help expedite outpatient care. Standard discharge and return precautions were provided. This documentation was generated using Pramanaation system, please disregard any oddities of phrase or misspellings. Medical Records Medical records reviewed: Yes I reviewed the patient's medical records. Imaging Data Radiologic Study: Attestation: I personally reviewed and interpreted this imaging study as follows: Imaging: X-Ray Radiologist's impression: PROCEDURE INFORMATION: Exam: XR Right Ankle Exam date and time: 12/23/2021 21:35 Age: 61 years old Clinical indication: Pain; Ankle; Right; Patient HX: Twist injury, tripped over dog TECHNIQUE: Imaging protocol: XR Right ankle. Views: 3 or more views. COMPARISON: No relevant prior studies available. FINDINGS: Bones/joints: Acute appearing avulsion fracture from the distal dorsal talus. Distracted by 2 mm. Soft tissues: Swelling in the lateral greater than medial ankle. Midline Plantar calcaneal spur. Coarse calcification below the lateral malleolus, favor nonacute. IMPRESSION: 1. Acute appearing avulsion fracture from the distal dorsal talus. Distracted by 2 mm. 2. Favor sequela of old trauma or ligamentous calcification below the lateral malleolus. Attention on follow-up imaging. HPI General Mode of arrival: ambulatory. Date/Time Provider Initiated Documentation: 12/23/21 21:08. Limitations to Documentation: no limitations. Information obtained by: patient. History of Present Illness 61 year old F presents to the emergency department with the chief complaint of R foot/ankle injury, described as moderate, with intensity rated at 7. Quality is described as stabbing, and is localized to the right and lower extremity. Patient reports no radiation. Patient started experiencing this hour(s) (5.5) and it has been constant. improves with Immobilization improves symptom(s), Movement worsens symptoms . Patient notes no other symptoms.. Patient did receive the following treatments prior to arrival, none Related Data Home Medications Medication Instructions Recorded Confirmed calcium carbonate 500 mg calcium 500 mg PO DAILY 11/29/20 12/23/21 (1,250 mg) tablet (Calcium 500) cholecalciferol (vitamin D3) 50 50 mcg PO DAILY 11/29/20 12/23/21 mcg (2,000 unit) capsule citalopram 40 mg tablet 40 mg PO DAILY #90 tab 01/02/21 12/23/21 levothyroxine 50 mcg tablet 50 mcg PO DAILY #90 tab 01/21/21 12/23/21 gabapentin 300 mg capsule 300 mg PO QHS 12/18/21 12/23/21 methylphenidate HCl 20 mg 20 mg PO QAM 12/18/21 12/23/21 tablet,extended release Previous Rx's Medication Instructions Recorded citalopram 40 mg tablet 40 mg PO DAILY #90 tab 01/02/21 levothyroxine 50 mcg tablet 50 mcg PO DAILY #90 tab 01/21/21 Allergies Allergy/AdvReac Type Severity Reaction Status Date / Time Penicillins Allergy Unknown Unverified 12/23/21 21:10 General Stated Complaint: Orthopedic AMANDA: 4 Review of Systems Constitutional Constitutional: Denies weakness Musculoskeletal Musculoskeletal: Denies deformity, Reports arthralgias, Denies numbness, Reports stiffness and Denies tingling Integumentary/Breasts Skin/Breast: Denies erythema Neurologic Neurologic: Denies numbness, Denies tingling and Denies weakness PFSH All Active Problems Avulsion fracture of right talus (Acute) Anxiety about health (Acute) Neuropathic pain (Acute) 2021- due to cancer treatment Tonsil cancer (Acute) 2019- removed right tonsil- did nt remove diseased one; 35 radiation tx, 3 chemo tx cysplatin Anemia (Chronic) Hypersomnia (Acute) 2021: prescribed med by sleep clinic Subclinical hypothyroidism (Acute) 11/2020: TSH >10, treated Decreased leukocytes (Acute) Medical History COVID-19 12/06/21 Idiopathic hypersomnolence TMJ (temporomandibular joint disorder) intermittent arthralgia Tonsil cancer Surgical History History of hysterectomy Normal colonoscopy (~01/2021) S/P cholecystectomy S/P tonsillectomy R tonsil Family History Mother , 70'S Alcohol abuse COPD (chronic obstructive pulmonary disease) Father , 80'S Heart disease Son Alcohol abuse Diabetes Hyperlipidemia Daughter Depression Social History (Updated 12/24/21 @ 16:17 by Rosibel Mina) Smoking/Tobacco Use Status: Never Second Hand Exposure: Yes Smoking risk assessment performed?: Yes Alcohol Intake: current Alcohol Intake frequency: a few times a month Alcohol type: beer and hard liquor Drug use: Never Details: alcohol: unknown Caregiver/Support person: No Housing: house Communication Needs: Hard of Hearing and Corrective Lenses Do you need help understanding health information?: Rarely Pets and animals: Yes Pets and animals: cat(s) Sexually active: Yes Do you think of yourself as: straight/heterosexual Current gender identity: female What is your relationship status?: How often do you talk on the phone with friends or family?: three or more times per week How often do you get together with friends or relatives?: once per week How often do you attend religion or latter day services?: 1-3 times per year Do you belong to any clubs or organized social groups?: no Panel score (0-1 are the most socially isolated patients): 1 What type of physical activity do you participate in: walking Duration: 60-90 minutes/day Frequency: daily Claudine/Latter Day: Yarsani Special claudine needs: No Agree to transfusion: No Do you feel safe at home: Yes Do you feel safe in your relationship?: Yes Exam Const General: cooperative, healthy appearing, comfortable and no acute distress Orientation: alert and awake [facility] Head: normal to inspection, normocephalic and atraumatic Eyes Conjunctivae: conjunctivae normal Neck Neck: normal visual inspection, trachea midline and supple Resp Effort & Inspection: normal respiratory effort and able to speak in complete sentences Cardio Rate: regular rate Rhythm: regular rhythm Skin General skin exam: no rashes or lesions noted Neuro General: patient alert, patient awake, moves all extremities and no focal motor deficits Cognition: normal cognition Speech: speech normal Gait: antalgic Motor: muscle tone normal throughout Sensory Exam: no sensory deficits noted Extrem General: full ROM and capillary refill normal Ankle/foot/toe images: 1. Diffuse mild swelling, ecchymosis, tenderness. There is no lateral malleolus point tenderness. There is no base of the fifth metatarsal point tenderness. Skin is intact. Normal capillary refill and pedal pulse. Neuro, vascular, tendon intact. Psych Appearance: grossly normal Mental Status: mental status grossly normal Course Vital Signs Vital signs: Vital Signs Temperature 36.6 C 12/23/21 21:06 Pulse 77 12/23/21 21:06 Respiratory Rate 18 12/23/21 21:06 Blood Pressure 102/66 12/23/21 21:06 Pulse Oximetry 98 12/23/21 21:06 Temperature 36.6 C 12/23/21 21:06 Pulse 77 12/23/21 21:06 Respiratory Rate 18 12/23/21 21:06 Respiratory Effort 12/23/21 21:11 Blood Pressure 102/66 12/23/21 21:06 Blood Pressure Position Sitting 12/23/21 21:06 Pulse Oximetry 98 12/23/21 21:06 Pain Level 7 12/23/21 21:06
--- NOTE | 2021-12-23 22:06 | DI.VRAD_ITS ---
PROCEDURE INFORMATION: Exam: XR Right Ankle Exam date and time: 12/23/2021 21:35 Age: 61 years old Clinical indication: Pain; Ankle; Right; Patient HX: Twist injury, tripped over dog TECHNIQUE: Imaging protocol: XR Right ankle. Views: 3 or more views. COMPARISON: No relevant prior studies available. FINDINGS: Bones/joints: Acute appearing avulsion fracture from the distal dorsal talus. Distracted by 2 mm. Soft tissues: Swelling in the lateral greater than medial ankle. Midline Plantar calcaneal spur. Coarse calcification below the lateral malleolus, favor nonacute. IMPRESSION: 1. Acute appearing avulsion fracture from the distal dorsal talus. Distracted by 2 mm. 2. Favor sequela of old trauma or ligamentous calcification below the lateral malleolus. Attention on follow-up imaging. Dictated and Authenticated by: Andreia Oshea MD. Ordering:INGRID Morales MD
== END 2021-12-23 22:18 | disposition home or self-care (01) ==
PROVIDERS: Emergency Provider Physician Assistant; PCP Nurse Practitioner
DX: S92.151A Displaced avulsion fracture (chip fracture) of right talus, initial encounter for closed fracture (principal); X50.1XXA Overexertion from prolonged static or awkward postures, initial encounter
CPT/HCPCS: 29515; 99283; 73610

== ENCOUNTER 2022-01-13 02:00 | Outpatient (CLI) | payer BC, SELFPAY ==
[2022-01-13 10:39] LABS: FREE T4 0.88 ng/dL (0.76-1.46)
== END 2022-01-13 02:01 | disposition home or self-care (01) ==
LOC: LBO 02:00
PROVIDERS: Preventive Medicine Undersea and Hyperbaric Medicine; PCP Nurse Practitioner; Visit Provider Nurse Practitioner
DX: E03.9 Hypothyroidism, unspecified (principal)
CPT/HCPCS: 36415; 84439; 84443

== ENCOUNTER 2022-02-03 13:36 | Outpatient (CLI) | payer BC, SELFPAY ==
--- NOTE | 2022-02-03 13:15 | DI.RAD_ITS ---
Exam(s) XR FOOT RT COMPLETE EXAM: XR FOOT RT COMPLETE CLINICAL HISTORY: follow up. TECHNIQUE: 2D digital imaging was performed. COMPARISON: No exams were available for comparison FINDINGS: 3 views On the lateral view there is an avulsion fragment off the dorsal aspect of the distal talus. No othe r fractures identified. No diastasis of the Lisfranc joint. Inferior calcaneal spur moderate size n oted. Bone density normal. No osseous lesions IMPRESSION: There is no pulsion injury fragment off the dorsal aspect of the distal talus. Correlation with site of tenderness is recommended DATA REPOSITORY: RADIATION DOSE DELIVERED:
== END 2022-02-03 13:37 | disposition home or self-care (01) ==
LOC: DIORS 13:36
PROVIDERS: PCP Nurse Practitioner; Referring Provider Nurse Practitioner; Visit Provider Physician Assistant Surgical
DX: M77.31 Calcaneal spur, right foot; S92.151A Displaced avulsion fracture (chip fracture) of right talus, initial encounter for closed fracture
CPT/HCPCS: 73630

== ENCOUNTER 2022-03-17 13:16 | Outpatient (CLI) | payer BC, SELFPAY ==
--- NOTE | 2022-03-17 13:00 | DI.RAD_ITS ---
Exam(s) XR ANKLE RT COMPLETE EXAM: XR ANKLE RT COMPLETE CLINICAL HISTORY: right ankle fx f/u. TECHNIQUE: 2D digital imaging was performed of the right ankle. Three images were obtained. AP, la teral and oblique views were obtained. COMPARISON: CR,XR XR ANKLE RT COMPLETE from 12/23/2021 FINDINGS: BONES: There has been no change in alignment of the small fracture fragment at the dorsal aspect of t he distal talus. This is best appreciated on the lateral view. There does appear to be communicatio n with the re[place]-sparks bone suggesting some interval healing. No bony destructive lesion is seen. There i s again seen a plantar calcaneal spur. No new fracture is identified. JOINTS: The ankle mortise is normally aligned. SOFT TISSUE: Normal. IMPRESSION: No acute abnormality. DATA REPOSITORY: RADIATION DOSE DELIVERED:
== END 2022-03-17 13:17 | disposition home or self-care (01) ==
LOC: DIORS 13:19
PROVIDERS: PCP Nurse Practitioner; Referring Provider Nurse Practitioner; Visit Provider Student in an Organized Health Care Education/Training Program
DX: S92.151D Displaced avulsion fracture (chip fracture) of right talus, subsequent encounter for fracture with routine healing (principal); X58.XXXA Exposure to other specified factors, initial encounter
CPT/HCPCS: 73610

== ENCOUNTER → 2022-04-30 01:00 | Outpatient (CLI) | payer BC, SELFPAY ==
--- NOTE | 2022-04-30 07:47 | DI.MAMMO_ITS ---
Exam(s) MAMMO SCREENING EXAM: MAMMO SCREENING CLINICAL HISTORY: screening,z12.39 TECHNIQUE: Mammograms were interpreted according to the usual protocol including computer analysis w [facility] CAD system, tomosynthesis and C-view imaging. COMPARISON: FINDINGS: The breasts are of moderate density with fairly symmetrical distribution fibroglandular tissue. No d ominant mass or clumped microcalcification is identified in either breast. The current examination i s compared with previous examinations including October 2020 and there is question of increased prom inence of a focal area of asymmetric density projected centrally in the right breast, visualized on C C view only. Additional mammographic views are requested to include a CC spot compression view of th e right breast. No other significant change seen. IMPRESSION: additional mammographic views of right breast requested as described. Breast ultrasound may be indic ated as well depending on the results of the additional mammographic views. BI-RADS Category 0 - Assessment Incomplete: Need additional imaging evaluation Breast Density - Category B - Scattered areas of fibroglandular density
== END ==
PROVIDERS: PCP Nurse Practitioner; Visit Provider Nurse Practitioner
DX: Z12.31 Encounter for screening mammogram for malignant neoplasm of breast (principal); R92.8 Other abnormal and inconclusive findings on diagnostic imaging of breast
CPT/HCPCS: 77063; 77067

== ENCOUNTER → 2022-05-06 02:06 | Outpatient (CLI) | payer BC, SELFPAY ==
--- NOTE | 2022-05-06 | DI.US_ITS ---
Exam(s) MG MAMMO SCREEN CALL BACK UNI US BREAST RT COMPLETE EXAM: MG MAMMO SCREEN CALL BACK UNI -RIGHT AND COMPLETE RIGHT BREAST ULTRASOUND CLINICAL HISTORY: F/U MAMMO, ASYMMETRIC DENSITY RT BREAST. TECHNIQUE: Unilateral spot mammographic images OF THE RIGHT BREAST obtained with 3D tomosynthesisand utilizing computer aided detection (CAD). . Complete RIGHT breast Ultrasound was also performed, including all 4 quadrants, the retroareolar dick on, and the ipsilateral axilla. COMPARISON: Prior mammograms were reviewed. This additional imaging was performed due to findings described on the recent screening mammogram of 04/30/2022. FINDINGS: DIAGNOSTIC RIGHT BREAST MAMMOGRAM: Additional mammographic views performed todaynot completely dissipate the nodule but reveal that it h as not increased in size from spot compression views of 10/30/2020. COMPLETE RIGHT BREAST ULTRASOUND: Ultrasound performed today reveals no significant focal findings in all 4 quadrants nor in the retroa reolar region.. This implies that the small nodular density on the mammogram is most probably benign intramammary lymph node. Scanning of the ipsilateral right axilla reveals no adenopathy. IMPRESSION: 1. Small benign-appearing right breast nodular density as above which is probably a benign intramamma ry lymph node, given that it is not seen on ultrasound examination. Appropriate follow-up , as discussed by myself with the patient today, is repeat right breast MAMMOGR AM in 6 months, with earlier imaging if a self detected breast change is noted.. The patient was informed of these findings and recommendations prior to leaving the department today. BI-RADS Category 3 - 6 month - Probably Benign Finding: Recommend follow-up mammography in 6 months Breast Density - Category B - Scattered areas of fibroglandular density Breast density Category C or D implies that the patient has dense breast tissue. Dense breast tissue can make it harder to find cancer on a mammogram. Dense breast tissue is also associated with an incr eased risk of breast cancer. This information about the result of the mammogram report was provided to the patient to raise their awareness. Use this report when you speak with the patient about their risks for breast cancer, which includes their family history. At that time, you may recommend additional screening tests (Ultrasoun d or MRI) as these tests may add significant information. A negative radiographic report should not delay biopsy if a dominant or clinically suspicious mass is present. Up to ten percent of cancers are not identified on mammography. A negative report may reinforce clinical impression. Adenosis and dense breasts may obscure an underlying neoplasm. False positive reports average 6 to 10%. Patient will receive a letter notifying them of these results.
== END ==
PROVIDERS: PCP Nurse Practitioner; Visit Provider Nurse Practitioner
DX: R92.8 Other abnormal and inconclusive findings on diagnostic imaging of breast (principal)
CPT/HCPCS: 76642; 77063; 77067

== ENCOUNTER 2022-11-03 01:45 | Outpatient (CLI) | payer BC, SELFPAY ==
--- NOTE | 2022-11-03 07:15 | DI.MAMMO_ITS ---
Exam(s) MG MAMMO DIAGNOSTIC UNI US BREAST RT COMPLETE EXAM: MG MAMMO DIAGNOSTIC UNI -RIGHT AND COMPLETE RIGHT BREAST ULTASOUND CLINICAL HISTORY: f/u 05/06/22 mammo,6 MO F/U,RT BREAST NODULE, R92.8. TECHNIQUE: Unilateral right breast spot mammographic images were obtained with 3D tomosynthesis tech [facility] and utilizing computer aided detection (CAD). Also performed complete right breast ultrasound including all 4 quadrants as well as the retroareolar region and right axilla. COMPARISON: Prior mammograms were reviewed. FINDINGS: DIAGNOSTIC RIGHT BREAST MAMMOGRAM: This six-month follow-up study reveals previously described findin g as unchanged and the additional spot compression view appears to bring out a 2nd small nodular dens ity in the retroareolar region. Proceed with ultrasound. COMPLETE RIGHT BREAST ULTRASOUND: At the 12 o'clock position there is a 3 x 2 millimeter microcyst which most probably corresponds to t he original nodule. At the central 6 o'clock position there is a 5 x 3 millimeter finding which has appearance of a sept ated microcyst, this most probably corresponds to the 2nd finding described above. There are no other ultrasound findings in all 4 quadrants of the right breast nor in the retroareolar region Scanning of the right axilla is negative for adenopathy. IMPRESSION: Benign-appearing findings in the right breast. Appropriate follow-up (as discussed by myself the patient today) is to repeat spot compression views and ultrasound at time for next yearly bilateral mammogram which would be in 6 months from now. The patient was informed of the findings and follow-up recommendations by myself prior to leaving the department today. BI-RADS Category 3 - 6 month - Probably Benign Finding: Recommend follow-up mammography in 6 months Breast Density - Category B - Scattered areas of fibroglandular density Breast density Category C or D implies that the patient has dense breast tissue. Dense breast tissue can make it harder to find cancer on a mammogram. Dense breast tissue is also associated with an incr eased risk of breast cancer. This information about the result of the mammogram report was provided to the patient to raise their awareness. Use this report when you speak with the patient about their risks for breast cancer, which includes their family history. At that time, you may recommend additional screening tests (Ultrasoun d or MRI) as these tests may add significant information. A negative radiographic report should not delay biopsy if a dominant or clinically suspicious mass is present. Up to ten percent of cancers are not identified on mammography. A negative report may reinforce clinical impression. Adenosis and dense breasts may obscure an underlying neoplasm. False positive reports average 6 to 10%. Patient will receive a letter notifying them of these results.
== END 2022-11-03 02:05 ==
LOC: DI 01:45
PROVIDERS: PCP Nurse Practitioner Family; Visit Provider Family Medicine
DX: R92.8 Other abnormal and inconclusive findings on diagnostic imaging of breast (principal); N60.01 Solitary cyst of right breast
CPT/HCPCS: 76642; 77061; 77065; G0279

== ENCOUNTER 2022-12-31 02:09 | Outpatient (CLI) | payer BC, SELFPAY ==
[2022-12-31 11:25] LABS: MCH 29.6 pg (27.0-33.0); MCHC 33.3 % (32.0-36.0); MCV 89 fL (80-95); MPV 9.3 fL (8.0-11.0); Platelet Count 173 10^3/uL (130-400); RBC 4.05 10^6/uL (3.93-5.22); RDW 12.7 % (11.7-14.6); RDW-SD 41.5 fL; WBC 3.47 10^3/uL (4.4-10.8)
[2022-12-31 12:23] LABS: ALT 27 U/L (14-59); AST 26 U/L (15-37); Albumin 4.2 g/dL (3.4-5.0); Alkaline Phosphatase 95 U/L (46-116); Anion Gap 8.8 mmol/L (3-11); BUN 18 mg/dL (7-18); Bilirubin, Total 0.3 mg/dL (0.2-1.0); CO2 26.2 mmol/L (21.0-32.0); CREATININE 1.2 mg/dL (0.55-1.02); Calcium 9.3 mg/dL (8.5-10.1); Calculated LDL 139 mg/dL (<100); Chloride 104 mmol/L (98-107); Cholesterol 226 mg/dL (<200); Estimated GFR 51.82 (mL/min/1.73m2); Glucose 84 mg/dL (74-106); HDL Cholesterol 80 mg/dL (40-60); Potassium 4.3 mmol/L (3.5-5.1); Sodium 139 mmol/L (136-145); TSH (W/Ref FT4) 4.56 uIU/mL (0.36-3.74); Total Protein 7.9 g/dL (6.4-8.2); Triglyceride 36 mg/dL (<150)
[2022-12-31 12:46] LABS: FREE T4 1.07 ng/dL (0.76-1.46)
== END 2022-12-31 02:10 | disposition home or self-care (01) ==
LOC: LBO 02:09
PROVIDERS: PCP Nurse Practitioner Family; Visit Provider Nurse Practitioner Family
DX: E03.8 Other specified hypothyroidism (principal); G47.10 Hypersomnia, unspecified; Z00.00 Encounter for general adult medical examination without abnormal findings
CPT/HCPCS: 36415; 80053; 80061; 85027; 84439; 84443

== ENCOUNTER 2023-02-11 03:08 | Outpatient (CLI) | payer BC, SELFPAY ==
[2023-02-11 12:04] LABS: Estimated GFR 64.49 (mL/min/1.73m2); TSH (W/Ref FT4) 4.49 uIU/mL (0.36-3.74)
[2023-02-11 12:20] LABS: FREE T4 0.85 ng/dL (0.76-1.46)
== END 2023-02-11 03:09 | disposition home or self-care (01) ==
PROVIDERS: PCP Nurse Practitioner Family; Visit Provider Nurse Practitioner Family
DX: E03.9 Hypothyroidism, unspecified (principal); G47.10 Hypersomnia, unspecified; R53.83 Other fatigue; Z01.812 Encounter for preprocedural laboratory examination
CPT/HCPCS: 36415; 82565; 84439; 84443

== ENCOUNTER 2023-04-07 02:01 | Outpatient (CLI) | payer BC, SELFPAY ==
--- NOTE | 2023-04-07 07:30 | DI.MAMMO_ITS ---
Exam(s) US BREAST RT COMPLETE MG MAMMO DIAGNOSTIC BI EXAM: MG MAMMO DIAGNOSTIC BI AND COMPLETE RIGHT BREAST ULTRASOUND CLINICAL HISTORY: 6 month follow up, Z09, R92.8 F/U ABNL MAMMO. TECHNIQUE: BILATERAL CC AND MLO mammographic images were obtained with 3D tomosynthesis technique an d utilizing computer aided detection (CAD). COMPLETE RIGHT BREAST ULTRASOUND performed including all 4 quadrants as well as the axillary region COMPARISON: Prior mammograms were reviewed, the most recent being October 2022 and April 2022. FINDINGS: BILATERAL MAMMOGRAM: There are no CAD designations. There are no new left breast findings. In the right breast 1 of the previously described nodules and is no longer seen. Anteriorly the retr oareolar region density is still evident (and again shown to be a small 12 o'clock position micro cys t on today's ultrasound). There are no malignant-appearing microcalcification groups in either breast. No new architectural distortion or skin thickening-traction. THE RIGHT BREAST ULTRASOUND: There is presently a solitary ultrasound finding which is at the central 12 o'clock position and has appearance of a 4 x 2 mm microcyst, previously present. There are no other focal ultrasound findings in all 4 quadrants. Scanning of the right axilla is negative for adenopathy. IMPRESSION: No radiographic evidence of malignancy. Benign findings Appropriate follow-up is to keep this patient on a yearly mammogram schedule, with earlier imaging if a self detected breast change is noted.. The patient was informed of the findings and follow-up recommendations by myself prior to leaving the department today. BI-RADS Category 2 - Benign Findings Breast Density - Category B - Scattered areas of fibroglandular density Breast density Category C or D implies that the patient has dense breast tissue. Dense breast tissue can make it harder to find cancer on a mammogram. Dense breast tissue is also associated with an incr eased risk of breast cancer. This information about the result of the mammogram report was provided to the patient to raise their awareness. Use this report when you speak with the patient about their risks for breast cancer, which includes their family history. At that time, you may recommend additional screening tests (Ultrasoun d or MRI) as these tests may add significant information. A negative radiographic report should not delay biopsy if a dominant or clinically suspicious mass is present. Up to ten percent of cancers are not identified on mammography. A negative report may reinforce clinical impression. Adenosis and dense breasts may obscure an underlying neoplasm. False positive reports average 6 to 10%. Patient will receive a letter notifying them of these results.
== END 2023-04-07 02:21 ==
LOC: DI 02:01
PROVIDERS: PCP Nurse Practitioner Family; Visit Provider Family Medicine
DX: R92.8 Other abnormal and inconclusive findings on diagnostic imaging of breast (principal); Z09 Encounter for follow-up examination after completed treatment for conditions other than malignant neoplasm
CPT/HCPCS: 76642; 77062; 77066; G0279

== ENCOUNTER 2023-04-08 04:19 | Outpatient (CLI) | payer BC, SELFPAY ==
[2023-04-08 14:19] LABS: TSH 1.24 uIU/mL (0.36-3.74)
== END 2023-04-08 04:20 | disposition home or self-care (01) ==
PROVIDERS: PCP Nurse Practitioner Family; Visit Provider Nurse Practitioner Family
DX: E03.9 Hypothyroidism, unspecified (principal)
CPT/HCPCS: 36415; 84443

== ENCOUNTER 2024-01-21 02:36 | Outpatient (CLI) | payer BC, SELFPAY ==
[2024-01-21 13:37] LABS: HCT 37.1 % (36.0-46.0); HGB 12.1 g/dL (11.2-15.7); MCH 29.7 pg (27.0-33.0); MCHC 32.6 % (32.0-36.0); MCV 91 fL (80-95); MPV 9.8 fL (8.0-11.0); Platelet Count 183 10^3/uL (130-400); RBC 4.07 10^6/uL (3.93-5.22); RDW 12.3 % (11.7-14.6)
[2024-01-21 14:07] LABS: ALT 20 U/L (14-59); AST 16 U/L (15-37); Albumin 4.2 g/dL (3.4-5.0); Alkaline Phosphatase 89 U/L (46-116); Anion Gap 11.7 mmol/L (3-11); BUN 16 mg/dL (7-18); Bilirubin, Total 0.5 mg/dL (0.2-1.0); CO2 27.3 mmol/L (21.0-32.0); CREATININE 1.2 mg/dL (0.55-1.02); Calcium 9.8 mg/dL (8.5-10.1); Calculated LDL 155 mg/dL (<100); Chloride 103 mmol/L (98-107); Cholesterol 248 mg/dL (<200); Glucose 116 mg/dL (74-106); HDL Cholesterol 80 mg/dL (40-60); Potassium 4.2 mmol/L (3.5-5.1); Sodium 142 mmol/L (136-145); TSH (W/Ref FT4) 2.33 uIU/mL (0.36-3.74); Total Protein 7.7 g/dL (6.4-8.2); Triglyceride 67 mg/dL (<150)
[2024-01-24 11:57] LABS: Lyme Ab w Rflx to Lyme Confirm Negative (Negative)
[2024-01-25 10:54] LABS: Anaplasma phagocytophilum Negative (Negative); B. miyamotoi PCR Negative (Negative); Babesia divergens/MO-1 Negative (Negative); Babesia duncani Negative (Negative); Babesia microti Negative (Negative); Ehrlichia chaffeensis Negative (Negative); Ehrlichia ewingii/canis Negative (Negative); Ehrlichia muris eauclairensis Negative (Negative)
== END 2024-01-21 02:37 | disposition home or self-care (01) ==
PROVIDERS: PCP Nurse Practitioner Family; Visit Provider Nurse Practitioner Family
DX: Z00.00 Encounter for general adult medical examination without abnormal findings (principal); G47.10 Hypersomnia, unspecified; M79.2 Neuralgia and neuritis, unspecified; E03.9 Hypothyroidism, unspecified; F41.8 Other specified anxiety disorders
CPT/HCPCS: 36415; 80053; 80061; 85027; 87798; 84443; 86618

== ENCOUNTER → 2024-03-13 02:47 | Outpatient (CLI) | payer BC, SELFPAY ==
--- NOTE | 2024-03-13 07:30 | DI.DEXA_ITS ---
Exam(s) XR DEXA BONE DENSITY W/WO DANNY EXAM: XR DEXA BONE DENSITY W/WO DANNY CLINICAL HISTORY: screening for osteoporosis in postmenopausal woman,z78.0 TECHNIQUE: COMPARISON: No exams were available for comparison FINDINGS: Lateral Spine Image: Unremarkable. No compression deformities identified. Left hip: Total T-Score: -1.4 Total Z-Score: -0.3 T- and Z-scores: Findings are consistent with osteopenia. Lumbar Spine: Total T-Score: -0.5 Total Z-Score: 1.0 T- and Z-scores: Within normal limits. IMPRESSION: No evidence of osteoporosis.
== END ==
PROVIDERS: PCP Nurse Practitioner Family; Visit Provider Nurse Practitioner Family
DX: M85.88 Other specified disorders of bone density and structure, other site (principal); Z78.0 Asymptomatic menopausal state
CPT/HCPCS: 77080

== ENCOUNTER 2024-03-16 01:05 | Outpatient (CLI) | payer BC, SELFPAY ==
[2024-03-16 11:55] LABS: ESR 7 mm/hr (0-30)
[2024-03-16 13:00] LABS: Vitamin B12 352 pg/mL (193-986)
[2024-03-16 23:03] LABS: CRP, High Sensitivity 1.21 mg/L (See Note); Rheumatoid Factor <8.6 IU/mL (<12.0)
[2024-03-17 13:49] LABS: ANA Interpretation Negative (Negative)
[2024-03-17 17:17] LABS: Cyclic Citrullinated Peptide <2.5 U/mL (<5.0)
[2024-03-21 10:06] LABS: IgA 186 mg/dL (85-499); Interpretation (See Note); Tissue Transglutaminase IgA <4.0 CU (<20.0)
== END 2024-03-16 01:06 | disposition home or self-care (01) ==
LOC: LBO 01:05
PROVIDERS: PCP Nurse Practitioner Family; Visit Provider Nurse Practitioner Family
DX: G47.10 Hypersomnia, unspecified (principal); R52 Pain, unspecified; R19.8 Other specified symptoms and signs involving the digestive system and abdomen
CPT/HCPCS: 36415; 82784; 83516; 85652; 86141; 86200; 82607; 86038; 86431

== ENCOUNTER 2025-01-25 03:07 | Outpatient (CLI) | payer BC, SELFPAY ==
[2025-01-25 13:26] LABS: ALT 56 U/L (14-59); AST 128 U/L (15-37); Albumin 3.9 g/dL (3.4-5.0); Alkaline Phosphatase 117 U/L (46-116); Anion Gap 3.6 mmol/L (3-11); BUN 18 mg/dL (7-18); Bilirubin, Total 0.2 mg/dL (0.2-1.0); CO2 30.4 mmol/L (21.0-32.0); Calcium 9.2 mg/dL (8.5-10.1); Calculated LDL 193 mg/dL (<100); Chloride 103 mmol/L (98-107); Cholesterol 276 mg/dL (<200); Glucose 97 mg/dL (74-106); HDL Cholesterol 68 mg/dL (>or=50); Potassium 4.4 mmol/L (3.5-5.1); Sodium 137 mmol/L (136-145); TSH (W/Ref FT4) 2.09 uIU/mL (0.36-3.74); Triglyceride 76 mg/dL (<150)
== END 2025-01-25 03:08 | disposition home or self-care (01) ==
PROVIDERS: PCP Nurse Practitioner Family; Visit Provider Nurse Practitioner Family
DX: Z00.00 Encounter for general adult medical examination without abnormal findings (principal); F41.8 Other specified anxiety disorders; E03.9 Hypothyroidism, unspecified
CPT/HCPCS: 36415; 80053; 80061; 84443

== ENCOUNTER 2025-02-22 00:44 | Outpatient (CLI) | payer BC, SELFPAY ==
--- NOTE | 2025-02-22 09:15 | DI.MAMMO_ITS ---
Exam(s) MAMMO SCREENING EXAM: MAMMO SCREENING CLINICAL HISTORY: SCREENING, Z12.39 TECHNIQUE: Bilateral full field digital CC and MLO mammographic images were obtained with 3D tomosynthesis and utilizing computer aided detection (CAD). COMPARISON: Comparison is made with prior examinations. FINDINGS: Masses/Architectural Distortion: No suspicious masses or areas of architectural distortion are present. Microcalcifications: No suspicious pleomorphic-type are seen. Skin Thickening/Nipple Retraction: None. IMPRESSION: 1. No significant interval change with no specific features of malignancy noted. 2. Unless there is more urgent need, screening mammography is recommended, as per [place] [employer] guidelines. BI-RADS Category 1 - Negative Breast Density - Category B - There are scattered areas of fibroglandular density. Breast density Category C or D implies that the patient has dense breast tissue. Dense breast tissue can make it harder to find cancer on a mammogram. Dense breast tissue is also associated with an increased risk of breast cancer. This information about the result of the mammogram report was provided to the patient to raise their awareness. Use this report when you speak with the patient about their risks for breast cancer, which includes their family history. At that time, you may recommend additional screening tests (Ultrasound or MRI) as these tests may add significant information. A negative radiographic report should not delay biopsy if a dominant or clinically suspicious mass is present. Up to ten percent of cancers are not identified on mammography. A negative report may reinforce clinical impression. Adenosis and dense breasts may obscure an underlying neoplasm. False positive reports average 6 to 10%. Patient will receive a letter notifying them of these results.
== END 2025-02-22 01:04 ==
LOC: DI 00:44
PROVIDERS: PCP Nurse Practitioner Family; Visit Provider Nurse Practitioner Family
DX: Z12.31 Encounter for screening mammogram for malignant neoplasm of breast (principal); R92.323 Mammographic fibroglandular density, bilateral breasts
CPT/HCPCS: 77063; 77067

== ENCOUNTER 2025-05-18 03:29 | Outpatient (CLI) | payer BC, SELFPAY ==
[2025-05-18 15:58] LABS: ALT 19 U/L (14-59); AST 15 U/L (15-37); Albumin 4.1 g/dL (3.4-5.0); Alkaline Phosphatase 109 U/L (46-116); Bilirubin, Direct 0.1 mg/dL (0.0-0.2); Bilirubin, Total 0.3 mg/dL (0.2-1.0); Total Protein 7.2 g/dL (6.4-8.2)
== END 2025-05-18 03:30 | disposition home or self-care (01) ==
PROVIDERS: PCP Nurse Practitioner Family; Visit Provider Nurse Practitioner Family
DX: R79.89 Other specified abnormal findings of blood chemistry (principal)
CPT/HCPCS: 36415; 80076